=== PATIENT | female | born 1950 | race Caucasian/White ===

== ENCOUNTER → 2017-07-15 09:34 | Outpatient (CLI) | payer MEDICARE, SELFPAY ==
[2017-07-15 11:19] LABS: ALB/GLOB Ratio 1.2 RATIO (0.9-2.4); AST(SGOT) 17 U/L (15-37); Alanine Aminotransfer ALT/SGPT 25 U/L (13-56); Albumin, Serum 3.9 g/dL (3.2-5.0); Alkaline Phosphatase 98 U/L (45-117); Anion Gap 4 (5-15); BUN 13 mg/dL (7-18); Calcium,Total 8.3 mg/dL (8.5-10.1); Chloride 105 mmol/L (98-107); Cholesterol 176 mg/dL (200); Creatinine, Serum 0.87 mg/dL (0.55-1.02); EST Glomerular Filtration Rate 69 mL/min (>60); Est Glom Filt Rate - Afr Amer 84 mL/min (>60); Globulin 3.2 g/dL (2.2-4.2); Glucose 97 mg/dL (74-106); High Density Lipoprotein 61 mg/dL; Potassium 3.8 mmol/L (3.5-5.1); Protein, Total 7.1 g/dL (6.4-8.2); Sodium Level 141 mmol/L (136-145); Triglycerides 242 mg/dL; Very Low Density Lipoprotein 48 mg/dL (5-40)
== END ==
PROVIDERS: Family Provider Family Medicine; PCP Family Medicine; Visit Provider Family Medicine
DX: E78.1 Pure hyperglyceridemia (principal); Z79.899 Other long term (current) drug therapy
CPT/HCPCS: 36415; 80053; 80061

== ENCOUNTER → 2017-10-12 08:48 | Outpatient (CLI) | payer MEDICARE, SELFPAY ==
--- NOTE | 2017-10-12 09:05 | RAD_ITS ---
STUDY: X-RAY CHEST REASON FOR EXAM: Female, 66 years old. Acute bronchitis. TECHNIQUE: PA and lateral views of the chest. COMPARISON: August 20, 2015. FINDINGS: The lungs are clear and expanded. There is no demonstrated pleural abnormality. Normal size heart. Normal mediastinum and jt. Normal visualized pulmonary arteries. Normal visualized aortic arch and descending thoracic aorta. Normal visualized thoracic spine. Normal visualized ribs, clavicles, and shoulders. There is no demonstrated abnormality of the visualized soft tissue structures of the upper abdomen. RAD/Chest PA and Lateral IMPRESSION: No acute cardiopulmonary disease or interval change. Electronically Signed: Anselmo Jones DO at 17:23 EDT Tel [phone], Service support ,
[2017-10-12 09:51] LABS: ALB/GLOB Ratio 1.2 RATIO (0.9-2.4); AST(SGOT) 19 U/L (15-37); Alanine Aminotransfer ALT/SGPT 33 U/L (13-56); Albumin, Serum 4.1 g/dL (3.2-5.0); Alkaline Phosphatase 95 U/L (45-117); Anion Gap 9 (5-15); BUN 13 mg/dL (7-18); BUN/Creat Ratio 12.1 RATIO (10-20); Calcium,Total 9.1 mg/dL (8.5-10.1); Chloride 106 mmol/L (98-107); Cholesterol 170 mg/dL (200); Creatinine, Serum 1.07 mg/dL (0.55-1.02); EST Glomerular Filtration Rate 54 mL/min (>60); Est Glom Filt Rate - Afr Amer 66 mL/min (>60); Globulin 3.3 g/dL (2.2-4.2); Glucose 177 mg/dL (74-106); High Density Lipoprotein 72 mg/dL; Potassium 3.9 mmol/L (3.5-5.1); Protein, Total 7.4 g/dL (6.4-8.2); Sodium Level 141 mmol/L (136-145); Triglycerides 117 mg/dL; Very Low Density Lipoprotein 23 mg/dL (5-40)
== END ==
PROVIDERS: Family Provider Family Medicine; PCP Family Medicine; Visit Provider Family Medicine
DX: J45.41 Moderate persistent asthma with (acute) exacerbation (principal); J20.9 Acute bronchitis, unspecified; F33.0 Major depressive disorder, recurrent, mild; E78.2 Mixed hyperlipidemia; J01.40 Acute pansinusitis, unspecified; I13.0 Hypertensive heart and chronic kidney disease with heart failure and stage 1 through stage 4 chronic kidney disease, or unspecified chronic kidney disease; I50.30 Unspecified diastolic (congestive) heart failure; N18.2 Chronic kidney disease, stage 2 (mild); M81.8 Other osteoporosis without current pathological fracture
CPT/HCPCS: 36415; 71046; 80053; 80061; 82306

== ENCOUNTER → 2017-10-14 10:11 | Outpatient (CLI) | payer MEDICARE, SELFPAY ==
--- NOTE | 2017-10-14 10:13 | BI_ITS ---
MAMMOGRAPHY - BILATERAL SCREENING REASON FOR EXAM: Female, 66 years old. Routine annual screening examination. PERTINENT HISTORY: Non-contributory. TECHNIQUE: Digital bilateral breast june (3D mammographic acquisition) in the CC and MLO projections. 2-D mediolateral oblique (MLO) and craniocaudad (CC) views of both breasts were obtained. CAD: Full Field Digital Mammography with Computer Added Detection was performed. COMPARISON: Comparison is made with prior chest examination dated September 07, 2016. FINDINGS: Breast Composition: The breasts are heterogeneously dense, which may obscure small masses. There are no dominant masses or suspicious calcifications. No other significant abnormalities are identified. There has been no significant change since the prior study. BI/SCREENING MAMM (CAD), BILAT IMPRESSION: Stable bilateral screening mammogram. Yearly follow-up mammogram recommended. (A) ASSESSMENT CATEGORY: BIRADS Category 1: Negative. A letter regarding these results will be sent to the patient by the facility within 30 days. Approximately 10% of breast cancers are not detected by mammography. A normal mammogram should not delay biopsy of a clinically suspicious abnormality. [id number] Electronically Signed: Thomas Arvizu MD at 11:33 EDT Tel [phone], Service support ,
== END ==
PROVIDERS: Family Provider Family Medicine; PCP Family Medicine; Visit Provider Nurse Practitioner Adult Health
DX: Z12.31 Encounter for screening mammogram for malignant neoplasm of breast (principal)
CPT/HCPCS: 77063; 77067

== ENCOUNTER → 2017-12-13 11:32 | Outpatient (CLI) | payer MEDICARE, SELFPAY ==
[2017-12-13 12:00] LABS: Absolute Lymphocyte Count 2.07 X10^3/ul (0.83-4.51); Absolute Neutrophil Count 2.9 X10^3/uL (2.0-7.7); Basophil# 0.06 X10^3/uL; Hematocrit 39.4 % (37-47); Hemoglobin 13.1 g/dl (12.0-15.0); Lymphocyte # 2.07 X10^3/ul (4.0); Lymphocyte % 33.2 % (19-41); Mean Corp Hgb Conc 33.2 g/gl (32-36); Mean Corpuscular Volume 93.1 fL (81-99); Mean Platelet Vol. 9.7 fl (6.2-12.0); Monocyte# 0.67 X10^3/uL; Monocyte% 10.7 % (0-10); Neutrophil # 2.91 X10^3/uL (2.7-7.7); Neutrophil % 46.6 % (47-70); Platelet Count 231 K/mm3 (150-450); RBC Distribution Width CV 14.1 % (11.6-14.6); RBC Distribution Width SD 47.8 fl (35.1-43.9); Red Blood Count 4.23 M/mm3 (4.2-5.4); White Blood Count 6.2 K/mm3 (4.4-11.0)
[2017-12-13 12:01] LABS: POSITIVE COUNT NO; POSITIVE DIFFERENTIAL NO; POSITIVE MORPHOLOGY NO
[2017-12-13 12:37] LABS: BNP,B-Type NATRIURETIC PEPTIDE 20.7 pg/mL (0-100)
[2017-12-16 20:08] LABS: Aspirgillus flavus Negative (Neg:<1:1); Aspirgillus fumigatus Negative (Neg:<1:1); Aspirgillus niger Negative (Neg:<1:1)
[2017-12-17 08:56] LABS: Immunoglobulin E 74 IU/mL (0-100)
== END ==
PROVIDERS: Family Provider Family Medicine; PCP Family Medicine; Visit Provider Internal Medicine Critical Care Medicine
DX: J45.51 Severe persistent asthma with (acute) exacerbation (principal); I50.32 Chronic diastolic (congestive) heart failure
CPT/HCPCS: 36415; 82785; 83880; 85025; 86606

== ENCOUNTER → 2017-12-23 15:04 | Outpatient (CLI) | payer MEDICARE, SELFPAY ==
--- NOTE | 2017-12-23 15:08 | CT_ITS ---
STUDY: CT CHEST WITHOUT CONTRAST REASON FOR EXAM: Female, 66 years old. Wheezing cough asthma RADIATION DOSAGE (If Supplied By Facility): CTDIvol = ( 12.81 ) mGy, DLP = ( 475.52 ) mGycm TECHNIQUE: Transaxial imaging was performed without the administration of intravenous contrast material. Multiplanar coronal and sagittal images were reformatted. Individualized dose optimization techniques were used for this CT. COMPARISON: October 2017 chest x-ray FINDINGS: There is a trace amount of right middle lobe atelectasis. There is no visualized focal consolidation or pleural effusion. There is no demonstrated pleural abnormality. Normal heart and pericardium. Normal mediastinum. Normal hilar regions. Normal unenhanced pulmonary arteries. There is minimal calcification of the aorta. Normal osseous structures. Ms. Heider hernia measuring 2.[address]/Chest without Contrast IMPRESSION: No visualized acute focal infiltrate. Minimal right middle lobe atelectasis. Small hiatal hernia. Electronically Signed: Gertrude Mattson MD at 15:30 EDT Tel , Service support ,
== END ==
PROVIDERS: Family Provider Family Medicine; PCP Family Medicine; Visit Provider Internal Medicine Critical Care Medicine
DX: J45.51 Severe persistent asthma with (acute) exacerbation (principal)
CPT/HCPCS: 71250

== ENCOUNTER 2018-03-22 17:01 | Observation (INO) | payer MEDICARE, SELFPAY ==
[2018-03-22] VITALS (10 sets, daily range): BP systolic 143–154; BP diastolic 59–91; PULSE 90–105; RESP 16–24; TEMP 36.8–37.1; O2SAT 95–97; BMI 26.9
--- NOTE | 2018-03-22 17:37 | RAD_ITS ---
STUDY: X-RAY CHEST REASON FOR EXAM: Female, 67 years old. Congestion and cough. TECHNIQUE: Frontal and lateral views of the chest. COMPARISON: 10/12/2017. FINDINGS: There is hyperinflation of the lungs consistent with chronic obstructive lung disease (COPD). No infiltrates or effusions. There is no demonstrated pleural abnormality. Normal size heart. Normal mediastinum and jt. Normal visualized pulmonary arteries. Normal visualized aortic arch and descending thoracic aorta. There are diffuse degenerative changes of the visualized thoracic spine. Stable mild compression fracture of the lower thoracic spine. Normal visualized ribs, clavicles, and shoulders. There is no demonstrated abnormality of the visualized soft tissue structures of the upper abdomen. RAD/Chest PA and Lateral IMPRESSION: There are findings consistent with COPD. There is no evidence of acute chest disease. Electronically Signed: Kong Kapadia MD at 18:47 EST , Service support ,
--- NOTE | 2018-03-22 17:37 | EKG12_ITS ---
Test Reason : Blood Pressure : / mmHG Vent. Rate : 090 BPM Atrial Rate : 090 BPM P-R Int : 138 ms QRS Dur : 074 ms QT Int : 364 ms P-R-T Axes : 073 070 087 degrees QTc Int : 445 ms Normal sinus rhythm Nonspecific ST abnormality Abnormal ECG Confirmed by MARYCARMEN STRICKLAND, MIKAEL ([id number]), proposal editor SUNDEEP DEVRIES ([id number]) on 03/25/2018 1:43:31 PM Referred By: HEATHER Confirmed By:MIKAEL CONROY MD
[2018-03-22] MEDS: Ipratropium/Albuterol Sulfate 3 ML AMPUL.NEB INHALATION (17:58)
[2018-03-22] MEDS: Albuterol 2.5 MG/3 ML VIAL.NEB. INHALATION ×5 (17:58→19:39)
[2018-03-22 18:38] LABS: Absolute Lymphocyte Count 2.62 X10^3/ul (0.83-4.51); Absolute Neutrophil Count 5.2 X10^3/uL (2.0-7.7); Basophil# 0.12 X10^3/uL; Basophil% 1.2 % (0-1); Eosinophil# 1.24 X10^3/uL; Eosinophils% 12.5 % (0-5); Lymphocyte # 2.62 X10^3/ul (4.0); Lymphocyte % 26.5 % (19-41); Mean Corp Hgb Conc 33.3 g/gl (32-36); Mean Corpuscular Volume 92.9 fL (81-99); Mean Platelet Vol. 9.9 fl (6.2-12.0); Monocyte# 0.73 X10^3/uL; Monocyte% 7.4 % (0-10); Neutrophil # 5.15 X10^3/uL (2.7-7.7); Platelet Count 294 K/mm3 (150-450); RBC Distribution Width CV 13.1 % (11.6-14.6); RBC Distribution Width SD 44.6 fl (35.1-43.9); Red Blood Count 4.52 M/mm3 (4.2-5.4); White Blood Count 9.9 K/mm3 (4.4-11.0)
[2018-03-22] MEDS: MethylPREDNISolone 125 MG/2 ML Vial IV (18:40)
[2018-03-22] MEDS: 0.9% Normal Saline 1,000 ML 150 ML IV (18:40)
[2018-03-22 18:48] LABS: POSITIVE COUNT NO; POSITIVE DIFFERENTIAL NO; POSITIVE MORPHOLOGY NO
[2018-03-22 18:49] LABS: Anion Gap 10 (5-15); BUN 14 mg/dL (7-18); BUN/Creat Ratio 14.4 RATIO (10-20); Calcium,Total 9.1 mg/dL (8.5-10.1); Chloride 104 mmol/L (98-107); Creatinine, Serum 0.98 mg/dL (0.55-1.02); EST Glomerular Filtration Rate 61 mL/min (>60); Est Glom Filt Rate - Afr Amer 73 mL/min (>60); Estimated Creatinine Clearance 46.08 ml/min; Glucose 110 mg/dL (74-106); Potassium 3.9 mmol/L (3.5-5.1); Sodium Level 142 mmol/L (136-145)
--- NOTE | 2018-03-22 19:06 | ED.VISSUMM ---
- ER Visit Summary Date of Service: 03/22/18 Chief Complaint: Shortness of breath History of Present Illness: The patient is a 67 F presents to the emergency department shortness of breath. Patient has a history of asthma. She is not on oxygen at home. She states that over the past 5 days, she has had worsening shortness of breath. She has been using her nebulizers every 4 hours with no improvement. She had scant cough but no productive sputum. She denies any fevers or chills. She denies any chest pain. Patient does not smoke. She states that she did start taking prednisone 2 days ago with little improvement. She has no history of pulmonary embolus. Physical Examination: Vital signs reviewed General: Well-nourished, well-developed Head: Normocephalic, atraumatic Eyes: Pupils equal and reactive, extraocular muscles intact Neck, supple, no lymphadenopathy Heart: Regular rate and rhythm Respiratory: No distress, diminished with wheezing throughout Abdomen: Soft, nontender, nondistended, no peritoneal signs Back: Nontender Extremities: Nontender, no edema, no cords Skin: Normal color no rash Neuro: Alert and oriented, no focal or lateralizing deficits Test Results: [] Emergency Department Course and Treatment: The patient presents with shortness of breath. EKG does not show any acute ischemia. The patient was given nebulized breathing treatments and steroids. Her x-ray shows no evidence of volume overload. There is no cardiomegaly. Screening labs are unremarkable. On reevaluation, the patient still has persistent bronchospasm. She was ambulated and was not hypoxic, but still had tachypnea at a rate of 30. At this time, I do feel the patient is to require admission for continued nebulized breathing treatments and steroids. Patient was discussed with the hospitalist. She will be admitted at this time. Treatment Plan: [] Disposition: Admission Impression: 1. Acute asthma exacerbation This note was generated with [facility] EHR dictation software. It may contain incorrect words, spelling, and punctuation that were not noted in review of the chart prior to signing ED Disposition - Plan for ED Patient: Disposition: Acute Care Hospital [facility] Chief Complaint: Cold Sx
--- NOTE | 2018-03-22 20:29 | HP.PCM_ITS ---
History of Present Illness Date of Admission: 03/22/18 Chief Complaint: cough, worsening shortness of breath The patient is a 67 year old F with past medical history of hypertension and asthma. She was admitted through the ED on 03/22/2018 with complaint of worsening shortness of breath and a cough for 5 days duration. She denies being around any person with upper respiratory tract symptoms. Symptoms started with congestion and rhinorrhea and subsequently she developed a cough which is mildly productive of scanty yellowish sputum. She admitted to some occasional chills and states shortness of breath and wheezing have been worsening associated with coming to the ED. She denied any assisted anorexia, palpitations, dizziness or lightheadedness, abdominal pain, diarrhea vomiting. Review of systems otherwise negative. In the ED, labs are unremarkable and vitals were significant for tachycardia and tachypnea.. She was given a breathing treatment and felt better but with ambulation, shortness of breath worsened and her breathing went up to 28 breaths/min. She is never been admitted to manage for asthma exacerbation. [] Past Medical History Past Medical History (Chronic Problems): Chronic Problems (Last Reviewed 01/27/18 @ 06:42 by Irma Davidson) Hypersomnia (Chronic) Persistent asthma (Chronic) Chronic diastolic heart failure (Chronic) Palpitations (Chronic) HTN (hypertension) (Chronic) Medical History: Medical History (Last Reviewed 01/27/18 @ 06:42 by Irma Davidson) Persistent asthma (Chronic) J45.909 Chronic diastolic heart failure (Chronic) I50.32 Palpitations (Chronic) R00.2 History of hysterectomy (Resolved) Z90.710 HTN (hypertension) (Chronic) I10 Cough R05 Dyspnea R06.00 Stage 2 chronic kidney disease N18.2 Wheezing R06.2 Allergies codeine Allergy (Severe, Verified 03/22/18 17:04) DIFFICULTY BREATHING/THROAT SWELLING nausea/swelling of mouth hydromorphone HCl [From Dilaudid] Allergy (Verified 03/22/18 17:04) EXTREME LETHARGY Home Medications: Ambulatory Orders Medication Instructions Recorded Amlodipine/Benazepril [Lotrel 5-20 1 cap PO QHS 06/29/15 MG Capsule] Omeprazole [Prilosec] 20 mg PO QHS 05/24/15 cyanocobalamin (vit B-12) 500 mcg 500 mcg PO DAILY 08/03/17 tablet atorvastatin 20 mg tablet 20 mg PO DAILY 10/19/17 fluticasone 500 mcg-salmeterol 50 1 inh INHALATION BID 10/19/17 mcg/dose blistr powdr for inhalation montelukast 10 mg tablet 10 mg PO QPM 01/27/18 Albuterol IH (ProAir) [Proair Hfa 2 puff INHALATION Q6H PRN PRN 03/22/18 (SP)Vent Pts] Cholecalciferol (Vitamin D3) 2,000 unit PO DAILY 03/22/18 [D3-2000] Ipratropium/Albuterol Sulfate 1 vial INHALATION 4X/DAY 03/22/18 [Iprat-Albut 0.5-3(2.5) mg/3 ml] Venlafaxine XR [Effexor Xr] 75 mg PO DAILY 03/22/18 Vitamin E 400 units PO DAILY 03/22/18 traZODone [Desyrel] 100 mg PO QHS 03/22/18 Surgical History: Surgical History (Last Reviewed 01/27/18 @ 06:42 by Irma Davidson) Hx of hernia repair (Resolved) Z98.890, Z87.19 History of tonsillectomy (Resolved) Z90.89 Surgical History: noncontributory Lives: Spouse/ Significant Other Smoking Status: Never smoker Alcohol: None - *Family History Maternal Family History: Family History (Last Reviewed 01/27/18 @ 06:42 by Irma Davidson) Brother CAD (coronary artery disease) Father CHF (congestive heart failure) Brother Myocardial infarction History Items: No pertinent history Paternal Family History: Family History (Last Reviewed 01/27/18 @ 06:42 by Irma Davidson) Brother CAD (coronary artery disease) Father CHF (congestive heart failure) Brother Myocardial infarction History Items: Heart Disease Review of Systems Constitutional: Reports: Chills. Denies: Anorexia, Fever, Malaise, Weakness, Weight Change, Fatigue Eyes: Denies: Blurred vision HEENT: Denies: Head Aches, Sinus Congestion, Sinus Drainage Cardiovascular: Denies: Chest Pain, Palpitations Respiratory: Reports: Cough, Shortness of Breath, Shortness of breath at rest, Shortness of breath upon exertion, Sputum production, Wheezing. Denies: Pleuritic Pain Gastrointestinal: Denies: Abdominal Pain, Nausea, Vomiting Genitourinary: Denies: Dysuria Musculoskeletal: Denies: Joint Pain, Joint Tenderness Skin: Denies: Rash, Wounds Neurological: Denies: Numbness, Tingling, Focal weakness Psychiatric: Denies: Anxiety, Depression, Homicidal Ideations, Suicidal Ideations Hematologic/ Lymphatic: Denies: Easy Bruising, Easy Bleeding VTE Information - Inpt Only VTE Present on Admission: No VTE Pharm Prophylaxis ordered?: Yes - Physical Exam General: Alert, Oriented x3, Cooperative, No apparent distress HEENT: Atraumatic, PERRLA, EOMI, Normocephalic Oral: Moist Mucosa Neck: Supple, No JVD, Negative Carotid Bruits Lungs: Short of Breath, - - Has coarse rhonchi and wheezing in all lung parada bilaterally. No crackles auscultated. Cardiovascular: Regular Rhythm, Normal S1, Normal S2, No murmurs, Tachycardic Abdomen: Bowel Sounds Present, Soft, Non Tender, Non-Distended, No Hepato- splenomegaly Extremities: No clubbing, No cyanosis, No edema, Capillary Refill Less than 3 Seconds Skin: No rashes, No breakdown Musculoskeletal: No Tenderness to Palpation of Joints or Extremities Lymphatic: No Cervical, Supraclavicular, or Inguinal Adenopathy Neurological: Cranial nerves II-XII grossly intact Psych/Mental Status: Normal Affect, Appropriate, Alert and oriented to time, place, person, mood and affect Vital Signs Temp Pulse Resp BP Pulse Ox 98.4 F 105 H 20 H 154/82 H 95 03/22/18 17:32 03/22/18 19:40 03/22/18 19:40 03/22/18 17:32 03/22/18 17:32 Oxygen Delivery Method Room Air Weight: 151 lb 10.848 oz Body Mass Index (BMI) 26.9 Laboratory Tests Past 24 Hrs 03/22/18 03/22/18 18:19 18:19 WBC 9.9 RBC 4.52 Hgb 14.0 Hct 42.0 MCV 92.9 MCH 31.0 MCHC 33.3 RDW 13.1 RDW Differential 44.6 H Plt Count 294 MPV 9.9 Immature Gran % (Auto) 0.400 Neut % (Auto) 52.0 Lymph % (Auto) 26.5 [place] % (Auto) 7.4 Eos % (Auto) 12.5 H Baso % (Auto) 1.2 H Absolute Neuts (auto) 5.2 Absolute Lymphs (auto) 2.62 Total Counted Not Reportable Sodium 142 Potassium 3.9 Chloride 104 Carbon Dioxide 28.0 Anion Gap 10 BUN 14 Creatinine 0.98 Estim Creat Clear Calc 46.08 Est GFR (MDRD) Af Amer 73 Est GFR (MDRD) Non-Af 61 BUN/Creatinine Ratio 14.4 Glucose 110 H Calcium 9.1 Troponin I < 0.015 Diagnostic Data Chest X-Ray 03/22/18 17:37 IMPRESSION: There are findings consistent with COPD. There is no evidence of acute chest disease. Electronically Signed: Kong Kapadia MD at 18:47 EST , Service support , Assessment/Plan All Active Problems (Last Reviewed 01/27/18 @ 06:42 by Irma Davidson) Eosinophilia (Acute) Hx of hernia repair (Resolved) History of hysterectomy (Resolved) History of tonsillectomy (Resolved) Hernia of abdominal cavity, with obstruction (Acute) Lactic acidosis (Resolved) Respiratory failure with hypoxia and hypercapnia (Resolved) 70-year-old female admitted with a 5-day history of rhinorrhea, nasal congestion, cough and shortness of breath. 1. Asthma exacerbation due to URTI * has coarse rhonchi and wheezing in all lung parada * CXR showed no acute infiltrate * admit to Med surg with telemetry * breathing treatments with duonebs * check respiratory panel * IV solumedrol 40mg q8 * oxygen prn to maintain sats >92% * Continue montelukast and fluticasone salmeterol. 2. Hypertension: On amlodipine and benazepril. Will continue. 3. Hyperlipidemia: On atorvastatin. 4. Depression: On Effexor and trazodone DVT prophylaxis: Lovenox Code status: full code * Patient counseled extensively about different types of CODE STATUS including full code, DNR CCA and DNR CCA. Patient elects to be full code. Total [id number] time 17 minutes. Code Visit OBSV E&M: 56379 Initial observation care L3 Procedures: 84420 Advncd Care Plan 30 Min
[2018-03-22] MEDS: Acetaminophen 500 MG Tablet 1000 MG PO (20:31)
[2018-03-22] MEDS: Atorvastatin Calcium 20 MG Tablet PO (22:49)
[2018-03-22] MEDS: traZODone 100 MG Tablet PO (22:49)
[2018-03-22] MEDS: Lisinopril 20 MG Tablet PO (22:51)
[2018-03-22] MEDS: amLODIPine 5 MG Tablet PO (22:51)
[2018-03-23] VITALS (14 sets, daily range): BP systolic 121–146; BP diastolic 51–66; PULSE 77–104; RESP 16–22; TEMP 36.5–37.1; O2SAT 91–96
[2018-03-23] MEDS: 0.9% NaCl Peripheral Flush Adult/Peds IV ×3 (05:47→18:08)
[2018-03-23] MEDS: Ipratropium/Albuterol Sulfate 3 ML AMPUL.NEB INHALATION ×4 (05:55→20:20)
[2018-03-23 08:16] LABS: Absolute Lymphocyte Count 0.68 X10^3/ul (0.83-4.51); Absolute Neutrophil Count 8.4 X10^3/uL (2.0-7.7); Basophil# 0.03 X10^3/uL; Basophil% 0.3 % (0-1); Eosinophil# 0.01 X10^3/uL; Eosinophils% 0.1 % (0-5); Hematocrit 37.7 % (37-47); Hemoglobin 12.3 g/dl (12.0-15.0); Lymphocyte # 0.68 X10^3/ul (4.0); Lymphocyte % 7.2 % (19-41); Mean Corp Hgb Conc 32.6 g/gl (32-36); Mean Corpuscular Hgb 30.6 pg (27.0-32.0); Mean Corpuscular Volume 93.8 fL (81-99); Mean Platelet Vol. 10.3 fl (6.2-12.0); Monocyte# 0.26 X10^3/uL; Monocyte% 2.8 % (0-10); Neutrophil # 8.36 X10^3/uL (2.7-7.7); Neutrophil % 88.6 % (47-70); POSITIVE COUNT NO; POSITIVE DIFFERENTIAL NO; POSITIVE MORPHOLOGY NO; Platelet Count 272 K/mm3 (150-450); RBC Distribution Width SD 43.2 fl (35.1-43.9); Red Blood Count 4.02 M/mm3 (4.2-5.4); White Blood Count 9.4 K/mm3 (4.4-11.0)
[2018-03-23 08:36] LABS: Anion Gap 9 (5-15); BUN 11 mg/dL (7-18); BUN/Creat Ratio 12.4 RATIO (10-20); Calcium,Total 8.5 mg/dL (8.5-10.1); Chloride 107 mmol/L (98-107); Creatinine, Serum 0.89 mg/dL (0.55-1.02); EST Glomerular Filtration Rate 67 mL/min (>60); Est Glom Filt Rate - Afr Amer 82 mL/min (>60); Estimated Creatinine Clearance 50.74 ml/min; Glucose 168 mg/dL (74-106); Potassium 4.1 mmol/L (3.5-5.1); Sodium Level 139 mmol/L (136-145)
--- NOTE | 2018-03-23 08:57 | PCM.PN.HOSP ---
Subjective: Patient is a 70-year-old lady with history of great intermittent asthma who presented with a 5-day history of cough nasal congestion as well as shortness of breath. Patient had apparently used her home treatment regimen without much improvement. Presented to the emergency department and assessment of acute asthma exacerbation made admitted to a monitored bed for further management Objective: GENERAL: cooperative HEENT: Atraumatic; moist oral mucosa EYES; Anicteric, Normal Conjunctiva NECK; supple, normal thyroid, no distended JVD. RESPIRATORY: Diminished to auscultation bilaterally, bilateral wheezes CARDIOVASCULAR: Regular S1 S2, no audible murmurs GI: soft, non-tender, normoactive bowel sounds, : No Renal angle tenderness; EXTREMITIES: No edema, no clubbing, no cyanosis. MUSCULOSKELETAL: No Joint Tenderness; no muscle waisting NEURO: Awake; no lateralizing signs. SKIN: No Rash PSYCH; Normal affect Vitals/I&O's: Vital Signs Temp Pulse Resp BP Pulse Ox 98.2 F 88 18 121/59 H 93 03/23/18 07:46 03/23/18 07:46 03/23/18 07:46 03/23/18 07:46 03/23/18 07:46 Oxygen Flow Rate (L/min) 3 Oxygen Delivery Method Room Air Weight: 68.8 kg Body Mass Index (BMI) 26.9 Intake and Output for Last 24 Hours 03/21/18 03/22/18 03/23/18 23:59 23:59 23:59 Intake Total 2145 / 2145 Balance 2145 / 2145 Microbiology Past 72 Hours 03/22/18 23:30 Mucosa - Nasopharyngeal Respiratory Panel (PCR) - Final Laboratory Results 03/22/18 18:19: WBC 9.9, RBC 4.52, Hgb 14.0, Hct 42.0, MCV 92.9, MCH 31.0, MCHC 33.3, RDW 13.1, RDW Differential 44.6 H, Plt Count 294, MPV 9.9, Immature Gran % (Auto) 0.400, Neut % (Auto) 52.0, Lymph % (Auto) 26.5, [place] % (Auto) 7.4, Eos % (Auto) 12.5 H, Baso % (Auto) 1.2 H, Absolute Neuts (auto) 5.2, Absolute Lymphs (auto) 2.62, Total Counted Not Reportable 03/22/18 18:19: Sodium 142, Potassium 3.9, Chloride 104, Carbon Dioxide 28.0, Anion Gap 10, BUN 14, Creatinine 0.98, Estim Creat Clear Calc 46.08, Est GFR (MDRD) Af Amer 73, Est GFR (MDRD) Non-Af 61, BUN/Creatinine Ratio 14.4, Glucose 110 H, Calcium 9.1, Troponin I < 0.015 03/23/18 07:45: WBC 9.4, RBC 4.02 L, Hgb 12.3, Hct 37.7, MCV 93.8, MCH 30.6, MCHC 32.6, RDW 13.0, RDW Differential 43.2, Plt Count 272, MPV 10.3, Immature Gran % (Auto) 1.000 H, Neut % (Auto) 88.6 H, Lymph % (Auto) 7.2 L, [place] % (Auto) 2.8, Eos % (Auto) 0.1, Baso % (Auto) 0.3, Absolute Neuts (auto) 8.4 H, Absolute Lymphs (auto) 0.68 L, Total Counted Not Reportable 03/23/18 07:45: Sodium 139, Potassium 4.1, Chloride 107, Carbon Dioxide 23.0, Anion Gap 9, BUN 11, Creatinine 0.89, Estim Creat Clear Calc 50.74, Est GFR (MDRD) Af Amer 82, Est GFR (MDRD) Non-Af 67, BUN/Creatinine Ratio 12.4, Glucose 168 H, Calcium 8.5 Current Medications Acetaminophen (Tylenol) 650 mg PO Q6H PRN PRN PRN Reason: HEADACHE Albuterol/Ipratropium (Duoneb) 3 ml INHALATION 4X/DAY [facility] Last Admin: 03/23/18 06:46 Dose: Not Given Amlodipine Besylate (Norvasc) 5 mg PO DAILY@0 [facility] Last Admin: 03/22/18 22:51 Dose: 5 mg Atorvastatin Calcium (Lipitor) 20 mg PO DAILY@2200 [facility] Last Admin: 03/22/18 22:49 Dose: 20 mg Cholecalciferol (Vitamin D) 2,000 unit PO DAILY [facility] Cyanocobalamin (Vitamin B12) 500 mcg PO DAILY [facility] Enoxaparin Sodium (Lovenox) 40 mg SC DAILY@1000 [facility] Lisinopril (Zestril) 20 mg PO DAILY@2200 [facility] Last Admin: 03/22/18 22:51 Dose: 20 mg Magnesium Hydroxide (Milk Of Magnesia) 30 ml PO DAILY PRN PRN PRN Reason: Constipation Methylprednisolone (Solu-Medrol) 40 mg IV Q8 [facility] Last Admin: 03/23/18 05:47 Dose: 40 mg Montelukast Sodium (Singulair) 10 mg PO 2200 [facility] Last Admin: 03/22/18 23:03 Dose: Not Given Pantoprazole Sodium (Protonix) 20 mg PO QHS [facility] Last Admin: 03/22/18 23:03 Dose: Not Given Sodium Chloride () 5 - 15 ml IV UD PRN PRN Reason: SALINE FLUSH Last Admin: 03/23/18 05:47 Dose: 10 ml Trazodone HCl (Desyrel) 100 mg PO QHS [facility] Last Admin: 03/22/18 22:49 Dose: 100 mg Venlafaxine HCl (Effexor Xr) 75 mg PO DAILY [facility] Vitamin E (Vitamin E) [facility] - Tobacco Use Smoking Status: Never smoker Assessment/Plan All Active Problems (Last Reviewed 01/27/18 @ 06:42 by Irma Davidson) Eosinophilia (Acute) Hx of hernia repair (Resolved) History of hysterectomy (Resolved) History of tonsillectomy (Resolved) Hernia of abdominal cavity, with obstruction (Acute) Lactic acidosis (Resolved) Respiratory failure with hypoxia and hypercapnia (Resolved) Patient is a 70-year-old lady with history of great intermittent asthma who presented with a 5-day history of cough nasal congestion as well as shortness of breath. Patient had apparently used her home treatment regimen without much improvement. Presented to the emergency department and assessment of acute asthma exacerbation made admitted to a monitored bed for further management 1. Acute asthma exacerbation possibly preceded by an upper respiratory tract infection possibly viral. Patient respiratory panel however came back negative admitted to regular nursing floor managed with systemic steroid as well as aerosol treatment 2. Hypertension-blood pressure controlled, home medications continued with dose adjustment as needed 3. Dyslipidemia-patient is on statin therapy, continued at home dose 4. Depression with anxiety patient is on Effexor and trazodone 5. DVT prophylaxis [place] Lovenox Code Visit OBSV E&M: 84809 Subsequent observation care L3
[2018-03-23] MEDS: Enoxaparin 40 MG/0.4 ML Syringe SC (09:00)
--- NOTE | 2018-03-23 09:01 | PN_ITS ---
Subjective: Patient is a 70-year-old lady with history of great intermittent asthma who presented with a 5-day history of cough nasal congestion as well as shortness of breath. Patient had apparently used her home treatment regimen without much improvement. Presented to the emergency department and assessment of acute asthma exacerbation made admitted to a monitored bed for further management Objective: GENERAL: cooperative HEENT: Atraumatic; moist oral mucosa EYES; Anicteric, Normal Conjunctiva NECK; supple, normal thyroid, no distended JVD. RESPIRATORY: Diminished to auscultation bilaterally, bilateral wheezes CARDIOVASCULAR: Regular S1 S2, no audible murmurs GI: soft, non-tender, normoactive bowel sounds, : No Renal angle tenderness; EXTREMITIES: No edema, no clubbing, no cyanosis. MUSCULOSKELETAL: No Joint Tenderness; no muscle waisting NEURO: Awake; no lateralizing signs. SKIN: No Rash PSYCH; Normal affect Vitals/I&O's: Vital Signs Temp Pulse Resp BP Pulse Ox 98.2 F 88 18 121/59 H 93 03/23/18 07:46 03/23/18 07:46 03/23/18 07:46 03/23/18 07:46 03/23/18 07:46 Oxygen Flow Rate (L/min) 3 Oxygen Delivery Method Room Air Weight: 68.8 kg Body Mass Index (BMI) 26.9 Intake and Output for Last 24 Hours 03/21/18 03/22/18 03/23/18 23:59 23:59 23:59 Intake Total 2145 / 2145 Balance 2145 / 2145 Microbiology Past 72 Hours 03/22/18 23:30 Mucosa - Nasopharyngeal Respiratory Panel (PCR) - Final Laboratory Results 03/22/18 18:19: WBC 9.9, RBC 4.52, Hgb 14.0, Hct 42.0, MCV 92.9, MCH 31.0, MCHC 33.3, RDW 13.1, RDW Differential 44.6 H, Plt Count 294, MPV 9.9, Immature Gran % (Auto) 0.400, Neut % (Auto) 52.0, Lymph % (Auto) 26.5, Bond % (Auto) 7.4, Eos % (Auto) 12.5 H, Baso % (Auto) 1.2 H, Absolute Neuts (auto) 5.2, Absolute Lymphs (auto) 2.62, Total Counted Not Reportable 03/22/18 18:19: Sodium 142, Potassium 3.9, Chloride 104, Carbon Dioxide 28.0, Anion Gap 10, BUN 14, Creatinine 0.98, Estim Creat Clear Calc 46.08, Est GFR (MDRD) Af Amer 73, Est GFR (MDRD) Non-Af 61, BUN/Creatinine Ratio 14.4, Glucose 110 H, Calcium 9.1, Troponin I < 0.015 03/23/18 07:45: WBC 9.4, RBC 4.02 L, Hgb 12.3, Hct 37.7, MCV 93.8, MCH 30.6, MCHC 32.6, RDW 13.0, RDW Differential 43.2, Plt Count 272, MPV 10.3, Immature Gran % (Auto) 1.000 H, Neut % (Auto) 88.6 H, Lymph % (Auto) 7.2 L, Bond % (Auto) 2.8, Eos % (Auto) 0.1, Baso % (Auto) 0.3, Absolute Neuts (auto) 8.4 H, Absolute Lymphs (auto) 0.68 L, Total Counted Not Reportable 03/23/18 07:45: Sodium 139, Potassium 4.1, Chloride 107, Carbon Dioxide 23.0, Anion Gap 9, BUN 11, Creatinine 0.89, Estim Creat Clear Calc 50.74, Est GFR (MDRD) Af Amer 82, Est GFR (MDRD) Non-Af 67, BUN/Creatinine Ratio 12.4, Glucose 168 H, Calcium 8.5 Current Medications Acetaminophen (Tylenol) 650 mg PO Q6H PRN PRN PRN Reason: HEADACHE Albuterol/Ipratropium (Duoneb) 3 ml INHALATION 4X/DAY [facility] Last Admin: 03/23/18 06:46 Dose: Not Given Amlodipine Besylate (Norvasc) 5 mg PO DAILY@0 [facility] Last Admin: 03/22/18 22:51 Dose: 5 mg Atorvastatin Calcium (Lipitor) 20 mg PO DAILY@2200 [facility] Last Admin: 03/22/18 22:49 Dose: 20 mg Cholecalciferol (Vitamin D) 2,000 unit PO DAILY [facility] Cyanocobalamin (Vitamin B12) 500 mcg PO DAILY [facility] Enoxaparin Sodium (Lovenox) 40 mg SC DAILY@1000 [facility] Lisinopril (Zestril) 20 mg PO DAILY@2200 [facility] Last Admin: 03/22/18 22:51 Dose: 20 mg Magnesium Hydroxide (Milk Of Magnesia) 30 ml PO DAILY PRN PRN PRN Reason: Constipation Methylprednisolone (Solu-Medrol) 40 mg IV Q8 [facility] Last Admin: 03/23/18 05:47 Dose: 40 mg Montelukast Sodium (Singulair) 10 mg PO 2200 [facility] Last Admin: 03/22/18 23:03 Dose: Not Given Pantoprazole Sodium (Protonix) 20 mg PO QHS [facility] Last Admin: 03/22/18 23:03 Dose: Not Given Sodium Chloride () 5 - 15 ml IV UD PRN PRN Reason: SALINE FLUSH Last Admin: 03/23/18 05:47 Dose: 10 ml Trazodone HCl (Desyrel) 100 mg PO QHS [facility] Last Admin: 03/22/18 22:49 Dose: 100 mg Venlafaxine HCl (Effexor Xr) 75 mg PO DAILY [facility] Vitamin E (Vitamin E) [facility] Medical Necessity - Tobacco Use Smoking Status: Never smoker Assessment/Plan All Active Problems (Last Reviewed 01/27/18 @ 06:42 by Irma Davidson) Eosinophilia (Acute) Hx of hernia repair (Resolved) History of hysterectomy (Resolved) History of tonsillectomy (Resolved) Hernia of abdominal cavity, with obstruction (Acute) Lactic acidosis (Resolved) Respiratory failure with hypoxia and hypercapnia (Resolved) Patient is a 70-year-old lady with history of great intermittent asthma who presented with a 5-day history of cough nasal congestion as well as shortness of breath. Patient had apparently used her home treatment regimen without much improvement. Presented to the emergency department and assessment of acute asthma exacerbation made admitted to a monitored bed for further management 1. Acute asthma exacerbation possibly preceded by an upper respiratory tract infection possibly viral. Patient respiratory panel however came back negative admitted to regular nursing floor managed with systemic steroid as well as aerosol treatment 2. Hypertension-blood pressure controlled, home medications continued with dose adjustment as needed 3. Dyslipidemia-patient is on statin therapy, continued at home dose 4. Depression with anxiety patient is on Effexor and trazodone 5. DVT prophylaxis SC Lovenox Code Visit OBSV E&M: 21636 Subsequent observation care L3
[2018-03-23] MEDS: Venlafaxine XR 75 MG Capsule PO (10:42)
[2018-03-23] MEDS: Montelukast 10 MG Tablet PO ×2 (10:42→10:43)
[2018-03-23] MEDS: BENZOCAINE/MENTHOL 1 LOZENGE MUCOUS MEM ×3 (10:48→18:11)
[2018-03-23] MEDS: Ketorolac 15 MG/ML Vial IV (18:08)
[2018-03-23] MEDS: amLODIPine 5 MG Tablet PO (21:19)
[2018-03-23] MEDS: Atorvastatin Calcium 20 MG Tablet PO (21:19)
[2018-03-23] MEDS: Acetaminophen 325 MG Tablet 650 MG PO (21:19)
[2018-03-23] MEDS: traZODone 100 MG Tablet PO (21:19)
[2018-03-23] MEDS: Pantoprazole Sodium 20 MG Tablet PO (21:19)
[2018-03-23] MEDS: Lisinopril 20 MG Tablet PO (21:19)
[2018-03-24] VITALS (10 sets, daily range): BP systolic 130–155; BP diastolic 57–81; PULSE 79–94; RESP 16–20; TEMP 36.2–36.7; O2SAT 94–97
[2018-03-24] MEDS: Ipratropium/Albuterol Sulfate 3 ML AMPUL.NEB INHALATION ×3 (05:03→14:30)
[2018-03-24] MEDS: Enoxaparin 40 MG/0.4 ML Syringe SC (08:39)
[2018-03-24] MEDS: Venlafaxine XR 75 MG Capsule PO (08:39)
[2018-03-24 08:53] LABS: Mucous, Urine 0 SEEN /hpf (<or=2+); Red Blood Cells-Urine 0 SEEN /hpf (0-5); White Blood Cells 0 SEEN /hpf (0-5)
[2018-03-24 08:58] LABS: Color, Urine Straw (Yellow); Glucose, Dipstick Normal (Normal); Ketone-Dipstick Negative (Negative); Leukocyte Esterase-Dipstick Negative /ul (Negative); Nitrite-Dipstick Negative (Negative); Occult Blood-Urine Negative /ul (Negative); Protein-Dipstick Negative (Negative); Urine Bilirubin Dipstick Negative (Negative); Urine Clarity Clear (Clear); Urine Urobilinogen Normal (Normal); Urine pH 6.5 (5.0 - 8.0)
[2018-03-24 09:04] LABS: Bacteria RARE /hpf (None Seen); Squamous Epithelial Cells - UA 0-5 SEEN /hpf (5-10)
--- NOTE | 2018-03-24 10:30 | CASEMGMT ---
KATTY DEL TORO NOTE: RN CM to room to talk with pt. *Reviewed YOU[employer] form with pt and pt signed form. Denies having any questions at this time. Offered MCR Handout Are you a hospital inpatient or outpatient but pt declines, stating she already has this information. Kim COKERN KATTY CM
--- NOTE | 2018-03-24 12:19 | PCM.PN.HOSP ---
Subjective: Been seen did complain of migrainous headache the day prior treated with Toradol. She also did does complain of dysuria urinalysis was sent for subsequent evaluation. Patient seen still complains of dyspnea at rest as well as wheezing. Consultation was placed to pulmonary medicine. Case discussed with Dr. Sifuentes. Objective: GENERAL: cooperative HEENT: Atraumatic; moist oral mucosa EYES; Anicteric, Normal Conjunctiva NECK; supple, normal thyroid, no distended JVD. RESPIRATORY: Diminished to auscultation bilaterally, bilateral wheezes CARDIOVASCULAR: Regular S1 S2, no audible murmurs GI: soft, non-tender, normoactive bowel sounds, : No Renal angle tenderness; EXTREMITIES: No edema, no clubbing, no cyanosis. MUSCULOSKELETAL: No Joint Tenderness; no muscle waisting NEURO: Awake; no lateralizing signs. SKIN: No Rash PSYCH; Normal affect Vitals/I&O's: Vital Signs Temp Pulse Resp BP Pulse Ox 97.7 F L 91 16 150/76 H 97 03/24/18 11:54 03/24/18 11:54 03/24/18 11:54 03/24/18 11:54 03/24/18 11:54 Oxygen Flow Rate (L/min) 3 Oxygen Delivery Method Room Air Weight: 68.8 kg Body Mass Index (BMI) 26.9 Intake and Output for Last 24 Hours 03/22/18 03/23/18 03/24/18 23:59 23:59 23:59 Intake Total 3265 / 3265 1100 / 1100 Balance 3265 / 3265 1100 / 1100 Microbiology Past 72 Hours 03/22/18 23:30 Mucosa - Nasopharyngeal Respiratory Panel (PCR) - Final Laboratory Results 03/24/18 08:45: Urine Color Straw, Urine Clarity Clear, Urine pH 6.5, Ur Specific [place] 1.010, Urine Protein Negative, Urine Glucose (UA) Normal, Urine Ketones Negative, Urine Occult Blood Negative, Urine Nitrite Negative, Urine Bilirubin Negative, Urine Urobilinogen Normal, Ur Leukocyte Esterase Negative, Urine RBC 0 SEEN, Urine WBC 0 SEEN, Ur Squamous Epith Cells 0-5 SEEN, Urine Bacteria RARE, Urine Mucus 0 SEEN Current Medications Acetaminophen (Tylenol) 650 mg PO Q6H PRN PRN PRN Reason: HEADACHE Last Admin: 03/23/18 21:19 Dose: 650 mg Albuterol Sulfate (Ventolin Aerosols) 2.5 mg INHALATION Q2H PRN PRN PRN Reason: WHEEZING Albuterol/Ipratropium (Duoneb) 3 ml INHALATION 4X/DAY [facility] Last Admin: 03/24/18 10:28 Dose: 3 ml Amlodipine Besylate (Norvasc) 5 mg PO DAILY@2199 [facility] Last Admin: 03/23/18 21:19 Dose: 5 mg Atorvastatin Calcium (Lipitor) 20 mg PO DAILY@2199 [facility] Last Admin: 03/23/18 21:19 Dose: 20 mg Cholecalciferol (Vitamin D) 2,000 unit PO DAILY [facility] Last Admin: 03/24/18 08:38 Dose: Not Given Cyanocobalamin (Vitamin B12) 500 mcg PO DAILY [facility] Last Admin: 03/24/18 08:38 Dose: Not Given Enoxaparin Sodium (Lovenox) 40 mg SC DAILY@1000 [facility] Last Admin: 03/24/18 08:39 Dose: 40 mg Lisinopril (Zestril) 20 mg PO DAILY@2199 [facility] Last Admin: 03/23/18 21:19 Dose: 20 mg Magnesium Hydroxide (Milk Of Magnesia) 30 ml PO DAILY PRN PRN PRN Reason: Constipation Methylprednisolone (Solu-Medrol) 40 mg IV Q8 [facility] Last Admin: 03/24/18 05:55 Dose: 40 mg Montelukast Sodium (Singulair) 10 mg PO 2200 [facility] Last Admin: 03/23/18 10:43 Dose: 10 mg Pantoprazole Sodium (Protonix) 20 mg PO QHS [facility] Last Admin: 03/23/18 21:19 Dose: 20 mg Sodium Chloride () 5 - 15 ml IV UD PRN PRN Reason: SALINE FLUSH Last Admin: 03/23/18 18:08 Dose: 10 ml Throat Lozenges (Cepacol Sore Throat Lozenge) 1 lozenge MUCOUS MEM Q2H PRN PRN PRN Reason: SORE THROAT Last Admin: 03/23/18 18:11 Dose: 1 lozenge Trazodone HCl (Desyrel) 100 mg PO QHS [facility] Last Admin: 03/23/18 21:19 Dose: 100 mg Venlafaxine HCl (Effexor Xr) 75 mg PO DAILY [facility] Last Admin: 03/24/18 08:39 Dose: 75 mg Vitamin [facility]Vitamin E) [facility] Last Admin: 03/24/18 08:38 Dose: Not Given Medical Necessity - Tobacco Use Smoking Status: Never smoker Assessment/Plan All Active Problems (Last Reviewed 01/27/18 @ 06:42 by Irma Davidson) Eosinophilia (Acute) Hx of hernia repair (Resolved) History of hysterectomy (Resolved) History of tonsillectomy (Resolved) Hernia of abdominal cavity, with obstruction (Acute) Lactic acidosis (Resolved) Respiratory failure with hypoxia and hypercapnia (Resolved) Patient is a 70-year-old lady with history of great intermittent asthma who presented with a 5-day history of cough nasal congestion as well as shortness of breath. Patient had apparently used her home treatment regimen without much improvement. Presented to the emergency department and assessment of acute asthma exacerbation made admitted to a monitored bed for further management 1. Acute asthma exacerbation possibly preceded by an upper respiratory tract infection possibly viral. Patient respiratory panel however came back negative admitted to regular nursing floor managed with systemic steroid as well as aerosol treatment. With patient remaining persistently bronchospastic consultation was placed to pulmonary medicine patient has been seen by Dr. Sifuentes 2. Severe persistent asthma patient is being considered for Biologics (immunotherapy) as outpatient 3. Hypertension-blood pressure controlled, home medications continued with dose adjustment as needed 4. Dyslipidemia-patient is on statin therapy, continued at home dose 5. Depression with anxiety patient is on Effexor and trazodone 6. Chronic migraine headache with exacerbation treated with Toradol 7. DVT prophylaxis SC Lovenox Code Visit OBSV E&M: 99577 Observ/hosp same date L3
--- NOTE | 2018-03-24 12:22 | PN_ITS ---
Subjective: Been seen did complain of migrainous headache the day prior treated with Toradol. She also did does complain of dysuria urinalysis was sent for subs equent evaluation. Patient seen still complains of dyspnea at rest as well as wheezing. Consultation was placed to pulmonary medicine. Case discussed with Dr. Sifuentes. Objective: GENERAL: cooperative HEENT: Atraumatic; moist oral mucosa EYES; Anicteric, Normal Conjunctiva NECK; supple, normal thyroid, no distended JVD. RESPIRATORY: Diminished to auscultation bilaterally, bilateral wheezes CARDIOVASCULAR: Regular S1 S2, no audible murmurs GI: soft, non-tender, normoactive bowel sounds, : No Renal angle tenderness; EXTREMITIES: No edema, no clubbing, no cyanosis. MUSCULOSKELETAL: No Joint Tenderness; no muscle waisting NEURO: Awake; no lateralizing signs. SKIN: No Rash PSYCH; Normal affect Vitals/I&O's: Vital Signs Temp Pulse Resp BP Pulse Ox 97.7 F L 91 16 150/76 H 97 03/24/18 11:54 03/24/18 11:54 03/24/18 11:54 03/24/18 11:54 03/24/18 11:54 Oxygen Flow Rate (L/min) 3 Oxygen Delivery Method Room Air Weight: 68.8 kg Body Mass Index (BMI) 26.9 Intake and Output for Last 24 Hours 03/22/18 03/23/18 03/24/18 23:59 23:59 23:59 Intake Total 3265 / 3265 1100 / 1100 Balance 3265 / 3265 1100 / 1100 Microbiology Past 72 Hours 03/22/18 23:30 Mucosa - Nasopharyngeal Respiratory Panel (PCR) - Final Laboratory Results 03/24/18 08:45: Urine Color Straw, Urine Clarity Clear, Urine pH 6.5, Ur Specific [place] 1.010, Urine Protein Negative, Urine Glucose (UA) Normal, Urine Ketones Negative, Urine Occult Blood Negative, Urine Nitrite Negative, Urine Bilirubin Negative, Urine Urobilinogen Normal, Ur Leukocyte Esterase Negative, Urine RBC 0 SEEN, Urine WBC 0 SEEN, Ur Squamous Epith Cells 0-5 SEEN, Urine Bacteria RARE, Urine Mucus 0 SEEN Current Medications Acetaminophen (Tylenol) 650 mg PO Q6H PRN PRN PRN Reason: HEADACHE Last Admin: 03/23/18 21:19 Dose: 650 mg Albuterol Sulfate (Ventolin Aerosols) 2.5 mg INHALATION Q2H PRN PRN PRN Reason: WHEEZING Albuterol/Ipratropium (Duoneb) 3 ml INHALATION 4X/DAY [facility] Last Admin: 03/24/18 10:28 Dose: 3 ml Amlodipine Besylate (Norvasc) 5 mg PO DAILY@2199 [facility] Last Admin: 03/23/18 21:19 Dose: 5 mg Atorvastatin Calcium (Lipitor) 20 mg PO DAILY@2199 [facility] Last Admin: 03/23/18 21:19 Dose: 20 mg Cholecalciferol (Vitamin D) 2,000 unit PO DAILY [facility] Last Admin: 03/24/18 08:38 Dose: Not Given Cyanocobalamin (Vitamin B12) 500 mcg PO DAILY [facility] Last Admin: 03/24/18 08:38 Dose: Not Given Enoxaparin Sodium (Lovenox) 40 mg SC DAILY@1000 [facility] Last Admin: 03/24/18 08:39 Dose: 40 mg Lisinopril (Zestril) 20 mg PO DAILY@2199 [facility] Last Admin: 03/23/18 21:19 Dose: 20 mg Magnesium Hydroxide (Milk Of Magnesia) 30 ml PO DAILY PRN PRN PRN Reason: Constipation Methylprednisolone (Solu-Medrol) 40 mg IV Q8 [facility] Last Admin: 03/24/18 05:55 Dose: 40 mg Montelukast Sodium (Singulair) 10 mg PO 220 [facility] Last Admin: 03/23/18 10:43 Dose: 10 mg Pantoprazole Sodium (Protonix) 20 mg PO QHS [facility] Last Admin: 03/23/18 21:19 Dose: 20 mg Sodium Chloride () 5 - 15 ml IV UD PRN PRN Reason: SALINE FLUSH Last Admin: 03/23/18 18:08 Dose: 10 ml Throat Lozenges (Cepacol Sore Throat Lozenge) 1 lozenge MUCOUS MEM Q2H PRN PRN PRN Reason: SORE THROAT Last Admin: 03/23/18 18:11 Dose: 1 lozenge Trazodone HCl (Desyrel) 100 mg PO QHS [facility] Last Admin: 03/23/18 21:19 Dose: 100 mg Venlafaxine HCl (Effexor Xr) 75 mg PO DAILY [facility] Last Admin: 03/24/18 08:39 Dose: 75 mg [facility] Last Admin: 03/24/18 08:38 Dose: Not Given Medical Necessity - Tobacco Use Smoking Status: Never smoker Assessment/Plan All Active Problems (Last Reviewed 01/27/18 @ 06:42 by Imra Davidson) Eosinophilia (Acute) Hx of hernia repair (Resolved) History of hysterectomy (Resolved) History of tonsillectomy (Resolved) Hernia of abdominal cavity, with obstruction (Acute) Lactic acidosis (Resolved) Respiratory failure with hypoxia and hypercapnia (Resolved) Patient is a 70-year-old lady with history of great intermittent asthma who presented with a 5-day history of cough nasal congestion as well as shortness of breath. Patient had apparently used her home treatment regimen without much improvement. Presented to the emergency department and assessment of acute asthma exacerbation made admitted to a monitored bed for further management 1. Acute asthma exacerbation possibly preceded by an upper respiratory tract infection possibly viral. Patient respiratory panel however came back negative admitted to regular nursing floor managed with systemic steroid as well as aerosol treatment. With patient remaining persistently bronchospastic consultation was placed to pulmonary medicine patient has been seen by Dr. Sifuentes 2. Severe persistent asthma patient is being considered for Biologics (immunotherapy) as outpatient 3. Hypertension-blood pressure controlled, home medications continued with dose adjustment as needed 4. Dyslipidemia-patient is on statin therapy, continued at home dose 5. Depression with anxiety patient is on Effexor and trazodone 6. Chronic migraine headache with exacerbation treated with Toradol 7. DVT prophylaxis SC Lovenox Code Visit OBSV E&M: 52038 Observ/hosp same date L3
[2018-03-24] MEDS: 0.9% NaCl Peripheral Flush Adult/Peds IV (14:07)
--- NOTE | 2018-03-24 14:37 | CON.PCM_ITS ---
Reason for Consult Date of Consultation: 03/24/18 Reason for Consultation: Asthma exacerbation History of Present Illness: The patient is a 67-year-old female, with a history as outlined below, who initially presented to the emergency department on March 22 with worsening shortness of breath and cough. She has a known history of severe persistent asthma along with eosinophilia and currently follows with Dr. Rojo in the pulmonary medicine clinic. She was last seen by him at the end of January, at which time, the decision was made to proceed with qualifying the patient for Nucala, as the patient is currently on maximal asthma therapy. She has a history of recurrent exacerbations. She does report that she previously had allergy testing done which did reveal a significant response to both cat and dog dander. However, the patient does report that she does currently keep 1 cat and 2 dogs as pets in her home environment. She does have peripheral eosinophilia along with an elevated IgE level to 74. The patient reports that her insurance company is requiring an additional blood draw to document continued eosinophilia prior to approval of Nucala. However, in order to accomplish this, the patient needs to be off of steroids. The patient's presenting plain film chest x-ray revealed no acute cardiopulmonary process. Respiratory viral panel was negative. To date, the patient has been treated symptomatically with scheduled bronchodilators, Singulair and prednisone. She is improving slowly with time. I spoke to her at length today regarding the need to consider getting rid of her animals and/or having family members care for them while the patient recovers, as they are a known trigger for her. She ideally needs to be off of steroids for a period of time prior to her lab work being drawn, in order to qualify her for Nucala. Past Medical History Past Medical History (Chronic Problems): Chronic Problems (Last Reviewed 01/27/18 @ 06:42 by Irma Davidson) Hypersomnia (Chronic) Persistent asthma (Chronic) Chronic diastolic heart failure (Chronic) Palpitations (Chronic) HTN (hypertension) (Chronic) Medical History: Medical History (Last Reviewed 01/27/18 @ 06:42 by Irma Davidson) Persistent asthma (Chronic) J45.909 Chronic diastolic heart failure (Chronic) I50.32 Palpitations (Chronic) R00.2 History of hysterectomy (Resolved) Z90.710 HTN (hypertension) (Chronic) I10 Cough R05 Dyspnea R06.00 Stage 2 chronic kidney disease N18.2 Wheezing R06.2 Allergies codeine Allergy (Severe, Verified 03/22/18 21:42) DIFFICULTY BREATHING/THROAT SWELLING nausea/swelling of mouth hydromorphone HCl [From Dilaudid] Allergy (Verified 03/22/18 21:42) EXTREME LETHARGY Home Medications: Ambulatory Orders Medication Instructions Recorded Amlodipine/Benazepril [Lotrel 5-20 1 cap PO QHS 06/29/15 MG Capsule] Omeprazole [Prilosec] 20 mg PO QHS 05/24/15 cyanocobalamin (vit B-12) 500 mcg 500 mcg PO DAILY 08/03/17 tablet atorvastatin 20 mg tablet 20 mg PO DAILY 10/19/17 fluticasone 500 mcg-salmeterol 50 1 inh INHALATION BID 10/19/17 mcg/dose blistr powdr for inhalation montelukast 10 mg tablet 10 mg PO QPM 01/27/18 Albuterol IH (ProAir) [Proair Hfa 2 puff INHALATION Q6H PRN PRN 03/22/18 (SP)Vent Pts] Cholecalciferol (Vitamin D3) 2,000 unit PO DAILY 03/22/18 [D3-2000] Ipratropium/Albuterol Sulfate 1 vial INHALATION 4X/DAY 03/22/18 [Iprat-Albut 0.5-3(2.5) mg/3 ml] Venlafaxine XR [Effexor Xr] 75 mg PO DAILY 03/22/18 Vitamin E 400 units PO DAILY 03/22/18 traZODone [Desyrel] 100 mg PO QHS 03/22/18 Surgical History: Surgical History (Last Reviewed 01/27/18 @ 06:42 by Irma Davidson) Hx of hernia repair (Resolved) Z98.890, Z87.19 History of tonsillectomy (Resolved) Z90.89 Surgical History: noncontributory Lives: Spouse/ Significant Other Smoking Status: Never smoker Alcohol: None - *Family History Maternal Family History: Family History (Last Reviewed 01/27/18 @ 06:42 by Irma Davidson) Brother CAD (coronary artery disease) Father CHF (congestive heart failure) Brother Myocardial infarction History Items: No pertinent history Paternal Family History: Family History (Last Reviewed 01/27/18 @ 06:42 by Irma Davidson) Brother CAD (coronary artery disease) Father CHF (congestive heart failure) Brother Myocardial infarction History Items: Heart Disease Review of Systems Constitutional: Denies: Chills, Fever Eyes: Denies: Blurred vision, Double vision HEENT: Denies: Head Aches, Sinus Congestion, Sinus Drainage Cardiovascular: Denies: Chest Pain, Palpitations Respiratory: Reports: Cough, Shortness of Breath, Wheezing Gastrointestinal: Denies: Abdominal Pain, Nausea, Vomiting Genitourinary: Denies: Dysuria Musculoskeletal: Denies: Joint Pain, Joint Tenderness Skin: Denies: Rash, Wounds Neurological: Denies: Numbness, Tingling, Focal weakness Psychiatric: Denies: Anxiety, Depression, Homicidal Ideations, Suicidal Id eations Hematologic/ Lymphatic: Denies: Easy Bruising, Easy Bleeding Objective: The patient's most recent lab work, culture data and imaging studies have all been personally reviewed. - Physical Exam General: Alert, Oriented x3, Cooperative, No apparent distress HEENT: Atraumatic, PERRLA, Normocephalic Oral: No Gingival or Mucosal Lesions/ Ulcerations Neck: Supple, No Nodes, Trachea Midline Lungs: Wheezes, - - Speaking in complete sentences. No accessory muscle use. Cardiovascular: Regular rate, Regular Rhythm, Normal S1, Normal S2, No murmurs Abdomen: Bowel Sounds Present, Soft, Non Tender, Non-Distended Extremities: No clubbing, No cyanosis, No edema Skin: No rashes, No breakdown Musculoskeletal: No Tenderness to Palpation of Joints or Extremities, No Muscle Wasting Lymphatic: No Cervical, Supraclavicular, or Inguinal Adenopathy Neurological: Cranial nerves II-XII grossly intact, Neuro grossly intact Psych/Mental Status: Alert and oriented to time, place, person, mood and affect Vital Signs Temp Pulse Resp BP Pulse Ox 36.4 C L 84 16 145/70 H 97 03/24/18 14:10 03/24/18 14:28 03/24/18 14:28 03/24/18 14:10 03/24/18 14:10 Oxygen Flow Rate (L/min) 3 Oxygen Delivery Method Room Air Weight: 151 lb 10.848 oz Body Mass Index (BMI) 26.9 Intake and Output for Last 24 Hours 03/22/18 03/23/18 03/24/18 23:59 23:59 23:59 Intake Total 3265 / 3265 1100 / 1100 Balance 3265 / 3265 1100 / 1100 Microbiology Past 72 Hours 03/22/18 23:30 Respiratory Panel (PCR) - Final Mucosa - Nasopharyngeal Laboratory Tests Past 24 Hrs 03/24/18 08:45 Urine Color Straw Urine Clarity Clear Urine pH 6.5 Ur Specific [place] 1.010 Urine Protein Negative Urine Glucose (UA) Normal Urine Ketones Negative Urine Occult Blood Negative Urine Nitrite Negative Urine Bilirubin Negative Urine Urobilinogen Normal Ur Leukocyte Esterase Negative Urine RBC 0 SEEN Urine WBC 0 SEEN Ur Squamous Epith Cells 0-5 SEEN Urine Bacteria RARE Urine Mucus 0 SEEN Clinical Impression(s) from Imaging Studies Chest X-Ray 03/22/18 17:37 IMPRESSION: There are findings consistent with COPD. There is no evidence of acute chest disease. Electronically Signed: Kong Kapadia MD at 18:47 EST , Service support , Assessment/Plan All Active Problems (Last Reviewed 01/27/18 @ 06:42 by Irma Davidson) Eosinophilia (Acute) Hx of hernia repair (Resolved) History of hysterectomy (Resolved) History of tonsillectomy (Resolved) Hernia of abdominal cavity, with obstruction (Acute) Lactic acidosis (Resolved) Respiratory failure with hypoxia and hypercapnia (Resolved) RECOMMENDATIONS: 1. Continue scheduled bronchodilators. 2. Continue IV steroids yet today, with plans to transition to prednisone beginning tomorrow. 3. Recommend prolonged steroid taper at discharge. 4. Discussed avoidance of known triggers with the patient, including the animals that she currently keeps as pets in her home environment. IMPRESSIONS: 1. Severe persistent asthma with frequent exacerbations The patient has a history of severe persistent asthma with frequent exacerbations. She is being followed longitudinally in the pulmonary medicine clinic by Dr. Rojo. At her last office visit, the decision was made to pursue adding Nucala to the patient's already maximized asthma regimen. However, the patients insurance is requiring an additional blood draw, which I assume was a CBC with differential, to document ongoing eosinophilia. However, the patient's eosinophil counts are strongly influenced by the administration of corticosteroids. She reports that at her last office visit, Dr. Rojo indicated that he would like for her to be off of steroids for 30 days prior to getting her blood drawn. The patient has yet to be able to do this, as she keeps experiencing exacerbations. However, she readily admits that she has a known allergy to both cat and dog dander, both of which she keeps his pets in her home environment. Therefore, I did discuss with her about the possibility of either getting rid of her pets or having family members care for them while she recovers. In the interim, I would not change your current management. 2. Hypertension/hyperlipidemia/depression/anxiety Complicates care, management, recovery and prognosis. Continue home medications as indicated. This note was generated with [employer] dictation software. It may contain incorrect words, spelling, and punctuation that were not noted in checking the note before signing. Code Visit Inpatient E&M: 57678 Init Hosp L2
[2018-03-24] MEDS: Acetaminophen 325 MG Tablet 650 MG PO (17:58)
[2018-03-24] MEDS: Albuterol 2.5 MG/3 ML VIAL.NEB. INHALATION (19:20)
[2018-03-24] MEDS: traZODone 100 MG Tablet PO (22:41)
[2018-03-24] MEDS: amLODIPine 5 MG Tablet PO (22:41)
[2018-03-24] MEDS: Pantoprazole Sodium 20 MG Tablet PO (22:41)
[2018-03-24] MEDS: Montelukast 10 MG Tablet PO (22:42)
[2018-03-24] MEDS: Atorvastatin Calcium 20 MG Tablet PO (22:42)
[2018-03-24] MEDS: Lisinopril 20 MG Tablet PO (22:42)
[2018-03-24] MEDS: Ketorolac 30 MG/ML Syringe IV (22:51)
[2018-03-25 02:20] VITALS: BP 131/62; PULSE 80; RESP 16; TEMP 36.8; O2SAT 94
[2018-03-25 06:55] VITALS: PULSE 88; RESP 21; O2SAT 91
[2018-03-25] MEDS: Ipratropium/Albuterol Sulfate 3 ML AMPUL.NEB INHALATION ×2 (06:58→11:42)
[2018-03-25] MEDS: Vitamin E 400 UNITS Capsule PO (07:49)
--- NOTE | 2018-03-25 08:12 | DCINST_ITS ---
You will use the following diet at home:: No restrictions Allergies/Adverse Reactions: Allergies codeine Allergy (Severe, Verified 03/22/18 21:42) DIFFICULTY BREATHING/THROAT SWELLING nausea/swelling of mouth hydromorphone HCl [From Dilaudid] Allergy (Verified 03/22/18 21:42) EXTREME LETHARGY Medications to take at Discharge Omeprazole [Prilosec] 20 mg PO QHS 05/24/15 cyanocobalamin (vit B-12) 500 mcg tablet 500 mcg PO DAILY 08/03/17 atorvastatin 20 mg tablet 20 mg PO DAILY 10/19/17 fluticasone 500 mcg-salmeterol 50 mcg/dose blistr powdr for inhalation 1 inh INHALATION BID 10/19/17 montelukast 10 mg tablet 10 mg PO QPM 01/27/18 Albuterol IH (ProAir) [Proair Hfa] 2 puff INHALATION Q6H PRN PRN 03/22/18 Cholecalciferol (Vitamin D3) [D3-2000] 2,000 unit PO DAILY 03/22/18 Venlafaxine XR [Effexor Xr] 75 mg PO DAILY 03/22/18 Vitamin E 400 units PO DAILY 03/22/18 traZODone [Desyrel] 100 mg PO QHS 03/22/18 Amlodipine [Norvasc] 10 mg PO DAILY #60 tablet 03/25/18 Ipratropium/Albuterol Sulfate [Iprat-Albut 0.5-3(2.5) mg/3 ml] 1 vial INHALATION 4X/DAY #120 ampul.neb 03/25/18 Prednisone 10 mg PO UD #32 tablet 03/25/18 The following prescriptions were given: Amlodipine [Norvasc] 10 mg PO DAILY #60 tablet Ipratropium/Albuterol Sulfate [Iprat-Albut 0.5-3(2.5) mg/3 ml] 1 vial INHALATION 4X/DAY #120 ampul.neb Prednisone 10 mg PO UD #32 tablet Primary Care Physician: Andrew Simms MD [Primary Care Provider] - Please follow up with your Primary Care Physician in: in 5-7 days Test Results: Test results from this visit will be discussed in further detail at your follow- up appointment, if applicable. Please Follow Up With: Umesh Rojo MD When: in 1-2n weeks Proposed Discharge Date: 03/25/18
[2018-03-25 08:15] VITALS: BP 149/75; PULSE 88; RESP 20; TEMP 36.6; O2SAT 97
--- NOTE | 2018-03-25 08:16 | DS.PCM_ITS ---
Discharge Date and Diagnosis - Problem List Patient Problems: Active and Suspected Problems (Last Reviewed 01/27/18 @ 06:42 by Irma Davidson) Asthma exacerbation (Acute) Date of Admission: 03/22/18 Date of Discharge: 03/25/18 - Primary Discharge Diagnosis Active and Suspected Problems (Last Reviewed 01/27/18 @ 06:42 by Irma Davidson) Asthma exacerbation (Acute) - Secondary Discharge Diagnosis Chronic Problems (Last Reviewed 01/27/18 @ 06:42 by Irma Davidson) Hypersomnia (Chronic) Persistent asthma (Chronic) Chronic diastolic heart failure (Chronic) Palpitations (Chronic) HTN (hypertension) (Chronic) Hospital Course and Treatment Imaging Results: Clinical Impression(s) from Imaging Studies Chest X-Ray 03/22/18 17:37 IMPRESSION: There are findings consistent with COPD. There is no evidence of acute chest disease. Electronically Signed: Kong Kapadia MD at 18:47 EST , Service support , Operations: [email or web address] Summary of Care Provided: Patient is a 70-year-old lady with history of great intermittent asthma who presented with a 5-day history of cough nasal congestion as well as shortness of breath. Patient had apparently used her home treatment regimen without much improvement. Presented to the emergency department and assessment of acute asthma exacerbation made admitted to a monitored bed for further management 1. Acute asthma exacerbation possibly preceded by an upper respiratory tract infection possibly viral. Patient respiratory panel however came back negative admitted to regular nursing floor managed with systemic steroid as well as aerosol treatment. With patient remaining persistently bronchospastic consultation was placed to pulmonary medicine patient has been seen by Dr. Sifuentes. Notes from Dr. Sifuentes reviewed. Was discharged home with tapering dose of prednisone she was also instructed to get rid of hear pets including chickens and cats and possibly dog 2. Severe persistent asthma patient is being considered for Biologics (immunotherapy) as outpatient 3. Hypertension-blood pressure controlled, home medications continued with dose adjustment as needed 4. Dyslipidemia-patient is on statin therapy, continued at home dose 5. Depression with anxiety patient is on Effexor and trazodone 6. Chronic migraine headache with exacerbation treated with Toradol 7. DVT prophylaxis SC Lovenox Patient Problems: Active and Suspected Problems (Last Reviewed 01/27/18 @ 06:42 by Irma Davidson) Asthma exacerbation (Acute) Objective: GENERAL: cooperative HEENT: Atraumatic; moist oral mucosa EYES; Anicteric, Normal Conjunctiva NECK; supple, normal thyroid, no distended JVD. RESPIRATORY: Diminished to auscultation bilaterally, bilateral wheezes CARDIOVASCULAR: Regular S1 S2, no audible murmurs GI: soft, non-tender, normoactive bowel sounds, : No Renal angle tenderness; EXTREMITIES: No edema, no clubbing, no cyanosis. MUSCULOSKELETAL: No Joint Tenderness; no muscle waisting NEURO: Awake; no lateralizing signs. SKIN: No Rash PSYCH; Normal affect - Physical Exam Vital Signs Temp Pulse Resp BP Pulse Ox 98.2 F 80 16 131/62 H 94 03/25/18 02:20 03/25/18 02:20 03/25/18 02:20 03/25/18 02:20 03/25/18 02:20 Oxygen Flow Rate (L/min) 3 Oxygen Delivery Method Room Air Weight: 68.8 kg Body Mass Index (BMI) 26.9 Intake and Output for Last 24 Hours 03/23/18 03/24/18 03/25/18 23:59 23:59 23:59 Intake Total 3265 / 3265 1900 / 1900 600 / 600 Balance 3265 / 3265 1900 / 1900 600 / 600 Microbiology Past 72 Hours 03/22/18 23:30 Respiratory Panel (PCR) - Final Mucosa - Nasopharyngeal Laboratory Tests Past 24 Hrs 03/24/18 08:45 Urine Color Straw Urine Clarity Clear Urine pH 6.5 Ur Specific [place] 1.010 Urine Protein Negative Urine Glucose (UA) Normal Urine Ketones Negative Urine Occult Blood Negative Urine Nitrite Negative Urine Bilirubin Negative Urine Urobilinogen Normal Ur Leukocyte Esterase Negative Urine RBC 0 SEEN Urine WBC 0 SEEN Ur Squamous Epith Cells 0-5 SEEN Urine Bacteria RARE Urine Mucus 0 SEEN Discharge Diet: No Restrictions Discharge Activity: Return to Normal Activity Home Medications: Medications to take at Discharge Omeprazole [Prilosec] 20 mg PO QHS 05/24/15 cyanocobalamin (vit B-12) 500 mcg tablet 500 mcg PO DAILY 08/03/17 atorvastatin 20 mg tablet 20 mg PO DAILY 10/19/17 fluticasone 500 mcg-salmeterol 50 mcg/dose blistr powdr for inhalation 1 inh INHALATION BID 10/19/17 montelukast 10 mg tablet 10 mg PO QPM 01/27/18 Albuterol IH (ProAir) [Proair Hfa] 2 puff INHALATION Q6H PRN PRN 03/22/18 Cholecalciferol (Vitamin D3) [D3-2000] 2,000 unit PO DAILY 03/22/18 Venlafaxine XR [Effexor Xr] 75 mg PO DAILY 03/22/18 Vitamin E 400 units PO DAILY 03/22/18 traZODone [Desyrel] 100 mg PO QHS 03/22/18 Amlodipine [Norvasc] 10 mg PO DAILY #60 tablet 03/25/18 Ipratropium/Albuterol Sulfate [Iprat-Albut 0.5-3(2.5) mg/3 ml] 1 vial INHALATION 4X/DAY #120 ampul.neb 03/25/18 Prednisone 10 mg PO UD #32 tablet 03/25/18 Following Prescrptions Were Given to Patient: Amlodipine [Norvasc] 10 mg PO DAILY #60 tablet Ipratropium/Albuterol Sulfate [Iprat-Albut 0.5-3(2.5) mg/3 ml] 1 vial INHALATION 4X/DAY #120 ampul.neb Prednisone 10 mg PO UD #32 tablet Primary Care Physician: Andrew Simms MD [Primary Care Provider] - Please follow up with your Primary Care Physician in: in 5-7 days Please Follow Up With: Umesh Rojo MD When: in 1-2n weeks Disposition: Home Minutes spent on discharge:: 25 Patient Condition:: Stable Medical Necessity - Tobacco Use Smoking Status: Never smoker Meaningful Use Info Meaningful Use Diagnoses (Choose all that apply): None applicable Code Visit OBSV E&M: 90895 Observation care discharge
--- NOTE | 2018-03-25 08:51 | PCM.PROGNOTE ---
Patient Problems: Active and Suspected Problems (Last Reviewed 01/27/18 @ 06:42 by Irma Davidson) Asthma exacerbation (Acute) Subjective: The patient was seen and examined at the bedside this morning. Events from the last 24 hours have been reviewed. The patient is currently afebrile, hemodynamically stable and maintaining appropriate oxygen saturations on room air. Breathing quality has improved. The patient does report that she has a friend who is coming over to to take ownership of her cat. Objective: The patient's most recent lab work, culture data and imaging studies have all been personally reviewed. Respiratory viral panel was negative. - Physical Exam General: Alert, Oriented x3, Cooperative, No apparent distress HEENT: Atraumatic, PERRLA, Normocephalic Oral: No Gingival or Mucosal Lesions/ Ulcerations Neck: Supple, No Nodes, Trachea Midline Lungs: Diminished, - - Some residual wheezing noted, although improved from yesterday. Cardiovascular: Regular rate, Regular Rhythm, Normal S1, Normal S2, No murmurs Abdomen: Bowel Sounds Present, Soft, Non Tender, Non-Distended Extremities: No clubbing, No cyanosis, No edema Skin: No breakdown Musculoskeletal: No Tenderness to Palpation of Joints or Extremities, No Muscle Wasting Lymphatic: No Cervical, Supraclavicular, or Inguinal Adenopathy Neurological: Cranial nerves II-XII grossly intact, Neuro grossly intact Psych/Mental Status: Alert and oriented to time, place, person, mood and affect Vital Signs Temp Pulse Resp BP Pulse Ox 36.8 C 80 16 131/62 H 94 03/25/18 02:20 03/25/18 02:20 03/25/18 02:20 03/25/18 02:20 03/25/18 02:20 Oxygen Flow Rate (L/min) 3 Oxygen Delivery Method Room Air Weight: 151 lb 10.848 oz Body Mass Index (BMI) 26.9 Intake and Output for Last 24 Hours 03/23/18 03/24/18 03/25/18 23:59 23:59 23:59 Intake Total 3265 / 3265 1900 / 1900 600 / 600 Balance 3265 / 3265 1900 / 1900 600 / 600 Microbiology Past 72 Hours 03/22/18 23:30 Respiratory Panel (PCR) - Final Mucosa - Nasopharyngeal Laboratory Tests Past 24 Hrs 03/24/18 08:45 Urine Color Straw Urine Clarity Clear Urine pH 6.5 Ur Specific [place] 1.010 Urine Protein Negative Urine Glucose (UA) Normal Urine Ketones Negative Urine Occult Blood Negative Urine Nitrite Negative Urine Bilirubin Negative Urine Urobilinogen Normal Ur Leukocyte Esterase Negative Urine RBC 0 SEEN Urine WBC 0 SEEN Ur Squamous Epith Cells 0-5 SEEN Urine Bacteria RARE Urine Mucus 0 SEEN Clinical Impression(s) from Imaging Studies Chest X-Ray 03/22/18 17:37 IMPRESSION: There are findings consistent with COPD. There is no evidence of acute chest disease. Electronically Signed: Kong Kapadia MD at 18:47 EST , Service support , Medical Necessity - Tobacco Use Smoking Status: Never smoker Assessment/Plan All Active Problems (Last Reviewed 01/27/18 @ 06:42 by Irma Davidson) Asthma exacerbation (Acute) Eosinophilia (Acute) Hx of hernia repair (Resolved) History of hysterectomy (Resolved) History of tonsillectomy (Resolved) Hernia of abdominal cavity, with obstruction (Acute) Lactic acidosis (Resolved) Respiratory failure with hypoxia and hypercapnia (Resolved) RECOMMENDATIONS: 1. Continue scheduled bronchodilators. 2. Continue prednisone with plans for prolonged steroid taper at discharge. 3. Discussed avoidance of known triggers with the patient, including the animals that she currently keeps as pets in her home environment. 4. Follow-up in the pulmonary medicine clinic as scheduled. IMPRESSIONS: 1. Severe persistent asthma with frequent exacerbations The patient has a history of severe persistent asthma with frequent exacerbations. She is being followed longitudinally in the pulmonary medicine clinic by Dr. Rojo. At her last office visit, the decision was made to pursue adding Nucala to the patient's already maximized asthma regimen. However, the patients insurance is requiring an additional blood draw, which I assume was a CBC with differential, to document ongoing eosinophilia. However, the patient's eosinophil counts are strongly influenced by the administration of corticosteroids. She reports that at her last office visit, Dr. Rojo indicated that he would like for her to be off of steroids for 30 days prior to getting her blood drawn. The patient has yet to be able to do this, as she keeps experiencing exacerbations. However, she readily admits that she has a known allergy to both cat and dog dander, both of which she keeps as pets in her home environment. Therefore, I did discuss with her about the possibility of either getting rid of her pets or having family members care for them while she recovers. 2. Hypertension/hyperlipidemia/depression/anxiety Complicates care, management, recovery and prognosis. Continue home medications as indicated. This note was generated with [employer] software. It may contain incorrect words, spelling, and punctuation that were not noted in checking the note before signing. Code Visit Inpatient E&M: 38443 Subs Hosp L2
[2018-03-25] MEDS: Albuterol 2.5 MG/3 ML VIAL.NEB. INHALATION (09:22)
[2018-03-25 09:24] VITALS: PULSE 93; RESP 16; O2SAT 93
[2018-03-25] MEDS: Cyanocobalamin 500 MCG Tablet PO (09:42)
[2018-03-25] MEDS: Venlafaxine XR 75 MG Capsule PO (09:43)
[2018-03-25] MEDS: Enoxaparin 40 MG/0.4 ML Syringe SC (09:44)
[2018-03-25 11:43] VITALS: PULSE 80; RESP 16
[2018-03-25] MEDS: Acetaminophen 325 MG Tablet 650 MG PO (12:34)
--- OUTSIDE RECORDS SUMMARY | 2018-06-24 05:59 | XMS RPT_ITS ---
:1950 Author Organization [place] Support Name Relationship Address Phone HEROAmeenaORIONKAILEE Unavailable [address] + [place] [address] R Unavailable Unavailable Unavailable HEROK KAILEE Unavailable [address] + [place] [address] R Unavailable Unavailable Unavailable ORION BOOVIN Unavailable [address] + [place] [address] R Unavailable Unavailable Unavailable HEROK, KAILEE Unavailable [address] + [place] [address] R Unavailable Unavailable Unavailable HEROK, KAILEE Unavailable [address] + [place] [address] R Unavailable Unavailable Unavailable HEROK, KAILEE Unavailable [address] + [place] [address] R Unavailable Unavailable Unavailable HEROK, KAILEE Unavailable [address] + [place] [address] R Unavailable Unavailable Unavailable RAJEEV, KAILEE Unavailable [address] + [place] [address] R Unavailable Unavailable Unavailable HEROK, KAILEE Unavailable [address] + [place] [address] R Unavailable Unavailable Unavailable HEROK, KAILEE Unavailable [address] + [place] [address] R Unavailable Unavailable Unavailable HEROK, KAILEE Unavailable [address] + [place] [address] R Unavailable Unavailable Unavailable HEROK, KAILEE Unavailable [address] + [place] [address] R Unavailable Unavailable Unavailable HUSK, KAILEE Unavailable [address] + [place] [address] R Unavailable Unavailable Unavailable HUSK, KAILEE Unavailable [address] + [place] [address] R Unavailable Unavailable Unavailable D Unavailable Unavailable Unavailable HUSK, KAILEE Unavailable [address] + [place] [address] D Unavailable Unavailable Unavailable HUSK, KAILEE Unavailable [address] + [place] [address] HUSK, KAILEE Unavailable [address] + [place] [address] UE Unavailable Unavailable Unavailable HUSK, KAILEE Unavailable [address] + [place] [address] UE Unavailable Unavailable Unavailable HUSK, KAILEE Unavailable [address] + [place] [address] UE Unavailable Unavailable Unavailable HUSK, KAILEE Unavailable [address] + [place] [address] UE Unavailable Unavailable Unavailable Care Team Providers Name Role Phone EFFIE, RA Primary Care Unavailable Koram, Mitra Karlene Admitting Unavailable Salinas Parker Attending Unavailable Hiram Sifuentes D.O. Consulting Unavailable Umesh Rojo Attending Unavailable EFFIE, RA Referring Unavailable Umesh Rojo Attending Unavailable Umesh Rojo Referring Unavailable EFFIE, RA Primary Care Unavailable Shauna Sue Attending Unavailable Shauna Sue Referring Unavailable EFFIE, RA Primary Care Unavailable Shauna Sue Attending Unavailable EFFIE, RA Referring Unavailable Koram, Mitra Karlene Admitting Unavailable Hiram Sifuentes D.O. Attending Unavailable EFFIE, RA Primary Care Unavailable Hiram Sifuentes D.O. Consulting Unavailable Salinas Parker Consulting Unavailable Umesh Rojo Attending Unavailable Umesh Rojo Referring Unavailable EFFIE, RA Primary Care Unavailable Umesh Rojo Attending Unavailable EFFIE, AR Referring Unavailable EFFIE, RA Primary Care Unavailable Donnie Dawson Attending Unavailable Donnie Dawson Referring Unavailable EFFIE, RA Primary Care Unavailable Donnie Dawson Attending Unavailable EFFIE, RA Referring Unavailable EFFIE, RA Primary Care Unavailable EFFIE, RA Referring Unavailable EFFIE, RA Primary Care Unavailable Annetta Damon Attending Unavailable EFFIE, RA Attending Unavailable EFFIE, RA Referring Unavailable EFFIE, RA Primary Care Unavailable Ava Peters Attending Unavailable Dorota Salmeron Attending Unavailable EFFIE, RA Attending Unavailable EFFIE, RA Referring Unavailable EFFIE, RA Primary Care Unavailable Koram, Mitra Karlene Admitting Unavailable KitSalinas mendoza Attending Unavailable EFFIE, RA Primary Care Unavailable Hiram Sifuentes D.O. Consulting Unavailable Salinas Parker Consulting Unavailable Koram, Mitra Karlene Admitting Unavailable Hiram Sifuentes D.O. Attending Unavailable EFFIE, RA Primary Care Unavailable Hiram Sifuentes D.O. Consulting Unavailable Salinas Parker Consulting Unavailable Koram, Mitra Karlene Admitting Unavailable Salinas Parker Attending Unavailable EFFIE, RA Primary Care Unavailable Hiram Sifuentes D.O. Consulting Unavailable Salinas Parker Consulting Unavailable Koram, Mitra Karlene Admitting Unavailable Salinas Parker Attending Unavailable EFFIE, RA Primary Care Unavailable Salinas Parker Consulting Unavailable Koram, Mitra Karlene Admitting Unavailable Koram, Mitra Karlene Attending Unavailable EFFIE, RA Primary Care Unavailable Koram, Mitra Karlene Consulting Unavailable PROBLEMS PROBLEMS DATE TYPE CONDITION / CODE ATTENDING STATUS SOURCE 04/26/2018 Unknown D72.1 - Eosinophilia / Sue, Active [place] D72.1(ICD-10) [facility] Repository 12/13/2017 Unknown J45.41 - Moderate DarrelUmesh ray Active [place] persistent asthma with Community (acute) exacerbation / Hospital J45.41(ICD-10) Repository 12/13/2017 Unknown I50.32 - Chronic DarrelUmesh ray Active [place] diastolic (congestive) Community heart failure / Hospital I50.32(ICD-10) Repository 12/13/2017 Unknown J45.51 - Severe DarrelUmesh ray Active [place] persistent asthma with Community (acute) exacerbation / Hospital J45.51(ICD-10) Repository 10/14/2017 Unknown Z12.31 - Encounter for Nga Damon screening mammogram [facility] for malignant neoplasm Hospital of breast / Repository Z12.31(ICD-10) 10/12/2017 Unknown 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, 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, RA Community recurrent, mild / Hospital F33.0(ICD-10) Repository 10/12/2017 Unknown E78.2 - Mixed EFFIE, Active [place] hyperlipidemia / RA Community E78.2(ICD-10) Hospital Repository 10/12/2017 Unknown J01.40 - Acute EFFIE, Active [place] pansinusitis, RA Community unspecified / Hospital J01.40(ICD-10) Repository 10/12/2017 Unknown N18.2 - Chronic kidney EFFIE, Active [place] disease, stage 2 RA Community (mild) / N18.2(ICD-10) Hospital Repository 10/12/2017 Unknown I50.30 - Unspecified EFFIE, Active [place] diastolic (congestive) [facility] heart failure / Hospital I50.30(ICD-10) Repository 10/12/2017 Unknown M81.8 - Other EFFIE, Active [place] osteoporosis without RA Community current pathological Hospital fracture / Repository M81.8(ICD-10) 10/12/2017 Unknown J20.9 - Acute EFFIE, Active [place] bronchitis, RA Community unspecified / Hospital J20.9(ICD-10) Repository 07/15/2017 Unknown E78.1 - Pure EFFIE, Active [place] hyperglyceridemia / RA Community E78.1(ICD-10) Hospital Repository PROCEDURES PROCEDURES No Procedure Records FoundRESULTS RESULTS PULMONARY VISIT REPORT Observed: 04/26/2018 Status: F Source: MINTER 2:02 [facility] REPOSITORY [facility] Pulmonary Medicine of [address] [place] [address] OFFICE VISIT Date of Service: 04/26/18 MR#: [id number] Acct: [id number] Name: CHUCK BOO Rep #: [id number] : 1950 Provider: Shauna Sue Age/Sex: 67/F Location: [facility] Status: Signed Assessment AND Plan 1. Severe persistent asthma with exacerbation J45.51 Plan Deteriorated. Likely experiencing an additional exacerbation of her asthma. Treating with an antibiotic, will likely add prednisone if symptoms do not show improvement within 24-48 hours. Continue all maintenance medications. CBC pending today. Follow-up with Dr. Rojo in 3 weeks. 2. Eosinophilia D72.1 Plan Deteriorated. CBC does indicate that the patient does have eosinophilia, see results. Concern for Churg-Rhonda. Pursue initiation of Nucala therapy. Follow-up with Dr. Rojo in 3 weeks. Laboratory Tests WBC 8.6 Eos % (Auto) 14.2 H Orders Orders: Plan Detail Other Medications New: Discontinued: Follow Up 3 Weeks (BWA) HPI 3 M FU: Chief Complaint: Wheezing HPI Comments Details: This patient presents the office for follow-up after recently being treated in the emergency department status post hospital for an exacerbation of her asthma. She is ambulatory and currently on room air. Approximately 20 pages of hospital documentation was reviewed from the hospitalization beginning on March 22 - March 25, 2018. Chest x-ray completed on March 22 showed findings that are consistent with COPD, however no acute chest disease. She was treated with steroids and bronchodilators. She was then discharged on a prednisone taper. Today she presents to the office and states that she has been off of prednisone for almost 2 weeks. She continues to have wheezing and chest tightness. She now has a cough that is productive of yellow to green sputum. She reports shortness of breath with exertion. She also reports a rattling sound in her chest. She denies any fever, chills or body aches. She denies any chest pain or palpitations. She also denies any lower extremity edema. She is compliant with Advair twice daily, as well as Singulair daily. She is using her rescue inhaler every 4 hours. She does report rinsing her mouth out after each use of Advair. She denies any medication side effects such as sore throat or thrush. Intake Vital Signs04/26/18 Height 5 ft 3 in 04/26/18 Weight: 150 lb Intake Visit Reasons: 3 M FU DME Vendor: [employer] Accompanied by: Self Allergies codeine Allergy (Severe, Verified 04/26/18 10:43) DIFFICULTY BREATHING/THROAT SWELLING hydromorphone HCl [From Dilaudid] Allergy (Verified 04/26/18 10:43) EXTREME LETHARGY Medications Omeprazole [Prilosec] 20 mg PO QHS 02/19/16 [History Confirmed 04/26/18] cyanocobalamin (vit B-12) 500 mcg tablet 500 mcg PO DAILY 08/03/17 [History Confirmed 04/26/18] atorvastatin 20 mg tablet 20 mg PO DAILY 10/19/17 [History Confirmed 04/26/18] fluticasone 500 mcg-salmeterol 50 mcg/dose blistr powdr for inhalation 1 inh INHALATION BID 10/19/17 [History Confirmed 04/26/18] montelukast 10 mg tablet 10 mg PO QPM 01/27/18 [History Confirmed 04/26/18] Albuterol IH (ProAir) [Proair Hfa] 2 puff INHALATION Q6H PRN PRN 03/22/18 [History Confirmed 04/26/18] Cholecalciferol (Vitamin D3) [D3-2000] 2,000 unit PO DAILY 03/22/18 [History Confirmed 04/26/18] Venlafaxine XR [Effexor Xr] 75 mg PO DAILY 03/22/18 [History Confirmed 04/26/18] Vitamin E 400 units PO DAILY 03/22/18 [History Confirmed 04/26/18] Amlodipine [Norvasc] 10 mg PO DAILY #60 tab 03/25/18 [Rx Confirmed 04/26/18] Ipratropium/Albuterol Sulfate [Iprat-Albut 0.5-3(2.5) mg/3 ml] 1 vial INHALATION 4X/DAY #120 ampul.neb 03/25/18 [Rx Confirmed 04/26/18] levofloxacin 500 mg tablet 500 mg PO Q24H 5 Days #5 tab 04/26/18 [Rx Confirmed 04/26/18] PFSH Medical History Persistent asthma (Chronic) Chronic diastolic heart failure (Chronic) Palpitations (Chronic) History of hysterectomy (Resolved) HTN (hypertension) (Chronic) Cough (Acute) Dyspnea (Acute) Stage 2 chronic kidney disease (Acute) Wheezing (Acute) Surgical History Hx of hernia repair (Resolved) History of tonsillectomy (Resolved) Family History Brother CAD (coronary artery disease) Father CHF (congestive heart failure) Brother Myocardial infarction Social History Smoking Status: Never smoker Review of Systems Const CONSTITUTIONAL: Negative anorexia, body ache, chills, daytime sleepiness, fever(s), night sweats, oral thrush, stops breathing during sleep, weight loss, sleeping in chair, fatigue, weight loss, weight gain, frequent colds, seasonal allergies, other, headache(s) or orthopnea EETM Ear Nose Throat Mouth: Positive hearing normal; negative hoarseness, dry mouth in morning, change in vision, itchy eyes, eye pain, swallowing Difficulty, ear pain, headache(s), mouth pain, nasal congestion, nasal discharge, sinus pain, sinus pressure, sore throat, other, hard of hearing, nose bleed or post nasal drip Cardio Cardiovascular: Negative chest pain, chest pain at rest, chest pain with activity, irregular heart rhythm, edema, shortness of breath when lying down, palpitations, other or murmur Resp Respiratory: Positive as per HPI, shortness of breath shortness of breath: Positive with activity, chest congestion, cough cough: Positive productive color: Positive thick, yellow and green and chest tightness; negative pain with cough, wheezing, pain on inspiration, inhalers, increase use of rescue inhalers, snoring, apnea or other Gastro Gastrointestional: Negative bloody stools, change in appetite, difficulty swallowing, reflux, hematemesis, melena stool, loose stool, constipation or other Genitourinary: Negative blood in urine, nocturia, pain with urination or other Musc Musculoskeletal: Negative body pain, back pain, neck pain or other Skin/Breast Skin/Breast: Negative dry skin, itching, unusual bruising, breast lump, other or rash Neuro Neurological: Negative restless legs, confusion, weakness or other Psych Psychocological: Negative abnormal sleep pattern, anxiety, thoughts of hurting self/others, hopelessness or other Lymph Lymphatic: Negative easy bleeding, easy bruising, other or swollen lymph nodes Exam Const Constitutional: Positive cooperative, in no acute respiratory distress, healthy appearing, well developed, well nourished, good hygiene, appears older than stated age and conversant Slightly cushingoid appearance Head Head: Positive normocephalic, atraumatic and other (meyers faces); negative cyanosis of lips/distal nose, frontal sinus tenderness or maxillary sinus tenderness Eyes Eye: Positive clear conjunctiva; negative nystagmus, scleral abnormality or cataract present Ears Ear: Positive external ears normal and hearing normal; negative hard of hearing Nose Nose: Positive external nose normal and no nasal discharge; negative epistaxis Mouth Mouth: Positive oral mucosae normal, no lesions and posterior oropharynx is adequate; negative malodorous breath, oral thrush present or post nasal drip Mallampati Score: II: Mallampati Score Neck Neck: Positive normal visual inspection, full ROM and trachea midline; negative lymphadenopathy or JVD Chest Wall Chest: Positive symmetric chest movement and increased A/P diameter; negative crepitus or tenderness Resp lung sounds: Positive wheezes (Worse at the bases), prolonged expiratory time and normal chronic state of increased work of breathing; negative rhonchi, rales or use of accessory muscles Cardio Cardiac: Positive regular rate, regular rhythm, S1 normal and S2 normal; negative rub, gallop or murmur GI GI: Positive normal to inspection; negative distended, ascites or epigastric tenderness Genitourinary: Positive deferred Musc Musculoskeletal: Positive steady gait; negative using an assistive device for ambulation, kyphosis or scoliosis Skin Pulmonary Skin Exam: Positive intact and dermal atrophy; negative lesion, ulcers, erythema or rash Pulses Pulse: Yes radial pulses present Extremities Extremities: Yes capillary refill normal, No clubbing, No cyanosis, No edema, No stasis dermatitis Neuro Neurologic: Yes conversant, Yes no focal neuro deficits, Yes normal concentration, Yes understands questions, Yes cooperative, Yes normal cognition, Yes normal coordination, No tremor Lymph Lymphatic: No lymphadenopathy, No tenderness, No cervical adenopathy Psych Appearance: Positive grossly normal, well kempt and eye contact Mental Status: Positive mental status grossly normal Mood: Positive congruent mood Affect: Positive normal affect Coding Level of Care Code Off vis,est,level 4 Diagnoses Severe persistent asthma with exacerbation J45.51 Asthma severity: severe Asthma persistence: persistent Eosinophilia D72.1 04/26/18 1402 <Electronically signed by Shauna ALARCON> Date Shauna ALARCON Cosigner Signature: Date (if applicable) CC: Ra Simms MD CBC W/DIFF, AUTOMATED Collected: 04/26/2018 Status: F Source: [place] 11:37 AM [facility] REPOSITORY TYPE CODE TESTS RESULT OUT OF RANGE REFERENCE UNITS LAB L100.1000 4.4-11.0 K/mm3 Normal WBC 8.6 LAB L100.1200 4.2-5.4 M/mm3 Normal RBC 4.60 LAB L100.1300 12.0-15.0 g/dl Normal HGB 14.2 LAB L100.1400 37-47 % Normal HCT 42.4 LAB L100.1500 81-99 fL Normal MCV 92.2 LAB L100.1600 27.0-32.0 pg Normal MCH 30.9 LAB L100.1700 32-36 g/gl Normal MCHC 33.5 LAB L100.1810 11.6-14.6 % Normal RDW CV 13.6 LAB L100.1820 35.1-43.9 fl High RDW SD 44.9 LAB L100.1900 150-450 K/mm3 Normal PLT 348 LAB L100.2000 6.2-12.0 fl Normal MPV 9.7 LAB L100.2100 47-70 % Normal NEUT% 48.1 LAB L100.2200 19-41 % Normal LY% 27.4 LAB L100.2300 0-10 % Normal MONO% 8.2 LAB L100.2400 0-5 % High EO% 14.2 LAB L100.2500 0-1 % High BASO% 1.5 LAB L100.2550 0.0-0.9 % Normal IM GRAN % 0.600 Result Comment: IG% - Immature Granulocytes (promyelocytes, myelocytes and metamyelocytes) > 1% indicates that a LEFT SHIFT is Present. LAB L100.2620 2.0-7.7 X10 3/uL Normal Absolute Neut 4.1 LAB L100.2720 0.83-4.51 X10 3/ul Normal Absolute Lymph 2.34 Performed By: #### L100.0100 #### [facility] [place], [address] 12 LEAD ELECTROCARDIOGRAM Observed: 03/25/2018 Status: F Source: [place] 1:43 PM [facility] REPOSITORY [facility] Cardiovascular Services [address] [place] [address] 12 Lead EKG 03/22/18 1750 MR#: [id number] Acct: [id number] Name: CHUCK BOO R Rep #: [id number] : 1950 67 From: Andrade Arellano MD Attending Dr: Salinas Parker MD Status: DIS ANGELITO Ordering Dr: Chay Goode MD Date: 03/22/18 [place] [facility] [place]: F C Admitted: 03/22/18 Test Reason : Blood Pressure : / mmHG Vent. Rate : 090 BPM Atrial Rate : 090 BPM P-R Int : 138 ms QRS Dur : 074 ms QT Int : 364 ms P-R-T Axes : 073 070 087 degrees QTc Int : 445 ms Normal sinus rhythm Nonspecific ST abnormality Abnormal ECG Confirmed by ANDRADE ARELLANO MD ([id number]), editor index SUNDEEP DEVRIES ([id number]) on 03/25/2018 1:43:31 PM Referred By: Confirmed By:ANDRADE ARELLANO MD 03/25/18 1343 Date Andrade Arellano MD CC: Salinas Parker MD; Ra Simms MD; Chay Goode MD Signed DISCHARGE SUMMARY Observed: 03/25/2018 Status: F Source: [place] 8:16 AM [facility] REPOSITORY [facility] Medical Records Department [address] [place] [address] Discharge Summary 03/25/18 0812 MR#: [id number] Acct: [id number] Name: CHUCK BOO R Rep #: [id number] : 1950 67 From: Salinas Parker MD PCP: Ra Simms MD Status: ADM ANGELITO Y Location: MS2 IR302-2 Discharge Date and Diagnosis - Problem List Patient Problems: Active and Suspected Problems (Last Reviewed 01/27/18 @ 06:42 by Irma Davidson) Asthma exacerbation (Acute) Date of Admission: 03/22/18 Date of Discharge: 03/25/18 - Primary Discharge Diagnosis Active and Suspected Problems (Last Reviewed 01/27/18 @ 06:42 by Irma Davidson) Asthma exacerbation (Acute) - Secondary Discharge Diagnosis Chronic Problems (Last Reviewed 01/27/18 @ 06:42 by Irma Davidson) Hypersomnia (Chronic) Persistent asthma (Chronic) Chronic diastolic heart failure (Chronic) Palpitations (Chronic) HTN (hypertension) (Chronic) Hospital Course and Treatment Imaging Results: Clinical Impression(s) from Imaging Studies Chest X-Ray 03/22/18 17:37 IMPRESSION: There are findings consistent with COPD. There is no evidence of acute chest disease. Electronically Signed: Kong Kapadia MD at 18:47 EST , Service support , Operations: herniorrhaphy Summary of Care Provided: Patient is a 70-year-old lady with history of great intermittent asthma who presented with a 5-day history of cough nasal congestion as well as shortness of breath. Patient had apparently used her home treatment regimen without much improvement. Presented to the emergency department and assessment of acute asthma exacerbation made admitted to a monitored bed for further management 1. Acute asthma exacerbation possibly preceded by an upper respiratory tract infection possibly viral. Patient respiratory panel however came back negative admitted to regular nursing floor managed with systemic steroid as well as aerosol treatment. With patient remaining persistently bronchospastic consultation was placed to pulmonary medicine patient has been seen by Dr. Sifuentes. Notes from Dr. Sifuentes reviewed. Was discharged home with tapering dose of prednisone she was also instructed to get rid of hear pets including chickens and cats and possibly dog 2. Severe persistent asthma patient is being considered for Biologics (immunotherapy) as outpatient 3. Hypertension-blood pressure controlled, home medications continued with dose adjustment as needed 4. Dyslipidemia-patient is on statin therapy, continued at home dose 5. Depression with anxiety patient is on Effexor and trazodone 6. Chronic migraine headache with exacerbation treated with Toradol 7. DVT prophylaxis SC Lovenox Patient Problems: Active and Suspected Problems (Last Reviewed 01/27/18 @ 06:42 by Irma Davidson) Asthma exacerbation (Acute) Objective: GENERAL: cooperative HEENT: Atraumatic; moist oral mucosa EYES; Anicteric, Normal Conjunctiva NECK; supple, normal thyroid, no distended JVD. RESPIRATORY: Diminished to auscultation bilaterally, bilateral wheezes CARDIOVASCULAR: Regular S1 S2, no audible murmurs GI: soft, non-tender, normoactive bowel sounds, : No Renal angle tenderness; EXTREMITIES: No edema, no clubbing, no cyanosis. MUSCULOSKELETAL: No Joint Tenderness; no muscle waisting NEURO: Awake; no lateralizing signs. SKIN: No Rash PSYCH; Normal affect - Physical Exam Vital Signs Temp Pulse Resp BP Pulse Ox 98.2 F 80 16 131/62 H 94 03/25/18 02:20 03/25/18 02:20 03/25/18 02:20 03/25/18 02:20 03/25/18 02:20 Oxygen Flow Rate (L/min) 3 Oxygen Delivery Method Room Air Weight: 68.8 kg Body Mass Index (BMI) 26.9 Intake and Output for Last 24 Hours Intake Total 3265 / 3265 1900 / 1900 600 / 600 Balance 3265 / 3265 1900 / 1900 600 / 600 Microbiology Past 72 Hours 03/22/18 23:30 Respiratory Panel (PCR) - Final Mucosa - Nasopharyngeal Laboratory Tests Past 24 Hrs Urine Color Straw Urine Clarity Clear Discharge Diet: No Restrictions Discharge Activity: Return to Normal Activity Home Medications: Medications to take at Discharge Omeprazole [Prilosec] 20 mg PO QHS 05/24/15 cyanocobalamin (vit B-12) 500 mcg tablet 500 mcg PO DAILY 08/03/17 atorvastatin 20 mg tablet 20 mg PO DAILY 10/19/17 fluticasone 500 mcg-salmeterol 50 mcg/dose blistr powdr for inhalation 1 inh INHALATION BID 10/19/17 montelukast 10 mg tablet 10 mg PO QPM 01/27/18 Albuterol IH (ProAir) [Proair Hfa] 2 puff INHALATION Q6H PRN PRN 03/22/18 Cholecalciferol (Vitamin D3) [D3-2000] 2,000 unit PO DAILY 03/22/18 Venlafaxine XR [Effexor Xr] 75 mg PO DAILY 03/22/18 Vitamin E 400 units PO DAILY 03/22/18 traZODone [Desyrel] 100 mg PO QHS 03/22/18 Amlodipine [Norvasc] 10 mg PO DAILY #60 tablet 03/25/18 Ipratropium/Albuterol Sulfate [Iprat-Albut 0.5-3(2.5) mg/3 ml] 1 vial INHALATION 4X/DAY #120 ampul.neb 03/25/18 Prednisone 10 mg PO UD #32 tablet 03/25/18 Following Prescrptions Were Given to Patient: Amlodipine [Norvasc] 10 mg PO DAILY #60 tablet Ipratropium/Albuterol Sulfate [Iprat-Albut 0.5-3(2.5) mg/3 ml] 1 vial INHALATION 4X/DAY #120 ampul.neb Prednisone 10 mg PO UD #32 tablet Primary Care Physician: Ra Simms MD [Primary Care Provider] - Please follow up with your Primary Care Physician in: in 5- 7 days Please Follow Up With: Umesh Rojo MD When: in 1-2n weeks Disposition: Home Minutes spent on discharge:: 25 Patient Condition:: Stable Medical Necessity - Tobacco Use Smoking Status: Never smoker Meaningful Use Info Meaningful Use Diagnoses (Choose all that apply): None applicable Code Visit OBSV E AND M: 08003 Observation care discharge 03/25/18 0816 <Electronically signed by Salinas Parker MD> Date Salinas Parker MD Cosigner Signature (if applicable): Date CC: Salinas Parker MD; Ra Simms MD Signed DISCHARGE INSTRUCTION Observed: 03/25/2018 Status: F Source: [place] 8:12 AM [facility] REPOSITORY [facility] Medical Records Department [address] [place] [address] Instructions for Home/Discharge Instructions 03/25/18 0810 MR#: [id number] Acct: [id number] Name: CHUCK BOO Rep #: [id number] : 1950 67 From: Salinas Parker MD PCP: Ra Simms MD Status: ADM ANGELITO You will use the following diet at home:: No restrictions Allergies/Adverse Reactions: Allergies codeine Allergy (Severe, Verified 03/22/18 21:42) DIFFICULTY BREATHING/THROAT SWELLING nausea/swelling of mouth hydromorphone HCl [From Dilaudid] Allergy (Verified 03/22/18 21:42) EXTREME LETHARGY Medications to take at Discharge Omeprazole [Prilosec] 20 mg PO QHS 05/24/15 cyanocobalamin (vit B-12) 500 mcg tablet 500 mcg PO DAILY 08/03/17 atorvastatin 20 mg tablet 20 mg PO DAILY 10/19/17 fluticasone 500 mcg-salmeterol 50 mcg/dose blistr powdr for inhalation 1 inh INHALATION BID 10/19/17 montelukast 10 mg tablet 10 mg PO QPM 01/27/18 Albuterol IH (ProAir) [Proair Hfa] 2 puff INHALATION Q6H PRN PRN 03/22/18 Cholecalciferol (Vitamin D3) [D3-2000] 2,000 unit PO DAILY 03/22/18 Venlafaxine XR [Effexor Xr] 75 mg PO DAILY 03/22/18 Vitamin E 400 units PO DAILY 03/22/18 traZODone [Desyrel] 100 mg PO QHS 03/22/18 Amlodipine [Norvasc] 10 mg PO DAILY #60 tablet 03/25/18 Ipratropium/Albuterol Sulfate [Iprat-Albut 0.5-3(2.5) mg/3 ml] 1 vial INHALATION 4X/DAY #120 ampul.neb 03/25/18 Prednisone 10 mg PO UD #32 tablet 03/25/18 The following prescriptions were given: Amlodipine [Norvasc] 10 mg PO DAILY #60 tablet Ipratropium/Albuterol Sulfate [Iprat-Albut 0.5-3(2.5) mg/3 ml] 1 vial INHALATION 4X/DAY #120 ampul.neb Prednisone 10 mg PO UD #32 tablet Primary Care Physician: Ra Simms MD [Primary Care Provider] - Please follow up with your Primary Care Physician in: in 5- 7 days Test Results: Test results from this visit will be discussed in further detail at your follow-up appointment, if applicable. Please Follow Up With: Umesh Rojo MD When: in 1-2n weeks Proposed Discharge Date: 03/25/18 03/25/18811 <Electronically signed by Salinas Parker MD> Date Salinas Parker MD CC: Hiram Sifuentes D.O.; Ra Simms MD CONSULTATION Observed: 03/24/2018 Status: F Source: MINTER 2:43 PM [facility] REPOSITORY [facility] Medical Records Department [address] [place] [address] Consultation 03/24/18 1432 MR#: [id number] Acct: [id number] Name: CHUCK BOO Rep #: [id number] : 1950 67 From: Hiram Sifuentes DO PCP: Ra Simms MD Status: ADM ANGELITO Y Location: [address] Reason for Consult Date of Consultation: 03/24/18 Reason for Consultation: Asthma exacerbation History of Present Illness: The patient is a 67-year-old female, with a history as outlined below, who initially presented to the emergency department on March 22 with worsening shortness of breath and cough. She has a known history of severe persistent asthma along with eosinophilia and currently follows with Dr. Rojo in the pulmonary medicine clinic. She was last seen by him at the end of January, at which time, the decision was made to proceed with qualifying the patient for Nucala, as the patient is currently on maximal asthma therapy. She has a history of recurrent exacerbations. She does report that she previously had allergy testing done which did reveal a significant response to both cat and dog dander. However, the patient does report that she does currently keep 1 cat and 2 dogs as pets in her home environment. She does have peripheral eosinophilia along with an elevated IgE level to 74. The patient reports that her insurance company is requiring an additional blood draw to document continued eosinophilia prior to approval of Nucala. However, in order to accomplish this, the patient needs to be off of steroids. The patient's presenting plain film chest x-ray revealed no acute cardiopulmonary process. Respiratory viral panel was negative. To date, the patient has been treated symptomatically with scheduled bronchodilators, Singulair and prednisone. She is improving slowly with time. I spoke to her at length today regarding the need to consider getting rid of her animals and/or having family members care for them while the patient recovers, as they are a known trigger for her. She ideally needs to be off of steroids for a period of time prior to her lab work being drawn, in order to qualify her for Nucala. Past Medical History Past Medical History (Chronic Problems): Chronic Problems (Last Reviewed 01/27/18 @ 06:42 by Irma Davidson) Hypersomnia (Chronic) Persistent asthma (Chronic) Chronic diastolic heart failure (Chronic) Palpitations (Chronic) HTN (hypertension) (Chronic) Medical History: Medical History (Last Reviewed 01/27/18 @ 06:42 by Irma Davidson) Persistent asthma (Chronic) J45.909 Chronic diastolic heart failure (Chronic) I50.32 Palpitations (Chronic) R00.2 History of hysterectomy (Resolved) Z90.710 HTN (hypertension) (Chronic) I10 Cough R05 Dyspnea R06.00 Stage 2 chronic kidney disease N18.2 Wheezing R06.2 Allergies codeine Allergy (Severe, Verified 03/22/18 21:42) DIFFICULTY BREATHING/THROAT SWELLING nausea/swelling of mouth hydromorphone HCl [From Dilaudid] Allergy (Verified 03/22/18 21:42) EXTREME LETHARGY Home Medications: Ambulatory Orders Medication Instructions Recorded Amlodipine/Benazepril [Lotrel 5-20 1 cap PO QHS 06/29/14 Surgical History: Surgical History (Last Reviewed 01/27/18 @ 06:42 by Irma Davidson) Hx of hernia repair (Resolved) Z98.890, Z87.19 History of tonsillectomy (Resolved) Z90.89 Surgical History: noncontributory Lives: Spouse/ Significant Other Smoking Status: Never smoker Alcohol: None - *Family History Maternal Family History: Family History (Last Reviewed 01/27/18 @ 06:42 by Irma Davidson) Brother CAD (coronary artery disease) Father CHF (congestive heart failure) Brother Myocardial infarction History Items: No pertinent history Paternal Family History: Family History (Last Reviewed 01/27/18 @ 06:42 by Irma Davidson) Brother CAD (coronary artery disease) Father CHF (congestive heart failure) Brother Myocardial infarction History Items: Heart Disease Review of Systems Constitutional: Denies: Chills, Fever Eyes: Denies: Blurred vision, Double vision HEENT: Denies: Head Aches, Sinus Congestion, Sinus Drainage Cardiovascular: Denies: Chest Pain, Palpitations Respiratory: Reports: Cough, Shortness of Breath, Wheezing Gastrointestinal: Denies: Abdominal Pain, Nausea, Vomiting Genitourinary: Denies: Dysuria Musculoskeletal: Denies: Joint Pain, Joint Tenderness Skin: Denies: Rash, Wounds Neurological: Denies: Numbness, Tingling, Focal weakness Psychiatric: Denies: Anxiety, Depression, Homicidal Ideations, Suicidal Ideations Hematologic/ Lymphatic: Denies: Easy Bruising, Easy Bleeding Objective: The patient's most recent lab work, culture data and imaging studies have all been personally reviewed. - Physical Exam General: Alert, Oriented x3, Cooperative, No apparent distress HEENT: Atraumatic, PERRLA, Normocephalic Oral: No Gingival or Mucosal Lesions/ Ulcerations Neck: Supple, No Nodes, Trachea Midline Lungs: Wheezes, - - Speaking in complete sentences. No accessory muscle use. Cardiovascular: Regular rate, Regular Rhythm, Normal S1, Normal S2, No murmurs Abdomen: Bowel Sounds Present, Soft, Non Tender, Non-Distended Extremities: No clubbing, No cyanosis, No edema Skin: No rashes, No breakdown Musculoskeletal: No Tenderness to Palpation of Joints or Extremities, No Muscle Wasting Lymphatic: No Cervical, Supraclavicular, or Inguinal Adenopathy Neurological: Cranial nerves II-XII grossly intact, Neuro grossly intact Psych/Mental Status: Alert and oriented to time, place, person, mood and affect Vital Signs Temp Pulse Resp BP Pulse Ox 36.4 C L 84 16 145/70 H 97 03/24/18 14:10 03/24/18 14:28 03/24/18 14:28 03/24/18 14:10 03/24/18 14:10 Oxygen Flow Rate (L/min) 3 Oxygen Delivery Method Room Air Weight: 151 lb 10.848 oz Body Mass Index (BMI) 26.9 Intake and Output for Last 24 Hours Intake Total 3265 / 3265 1100 / 1100 Balance 3265 / 3265 1100 / 1100 Microbiology Past 72 Hours 03/22/18 23:30 Respiratory Panel (PCR) - Final Mucosa - Nasopharyngeal Laboratory Tests Past 24 Hrs Urine Color Straw Urine Clarity Clear Clinical Impression(s) from Imaging Studies Chest X-Ray 03/22/18 17:37 IMPRESSION: There are findings consistent with COPD. There is no evidence of acute chest disease. Electronically Signed: Kong Kapadia MD at 18:47 EST , Service support , Assessment/Plan All Active Problems (Last Reviewed 01/27/18 @ 06:42 by Irma Davidson) Eosinophilia (Acute) Hx of hernia repair (Resolved) History of hysterectomy (Resolved) History of tonsillectomy (Resolved) Hernia of abdominal cavity, with obstruction (Acute) Lactic acidosis (Resolved) Respiratory failure with hypoxia and hypercapnia (Resolved) RECOMMENDATIONS: 1. Continue scheduled bronchodilators. 2. Continue IV steroids yet today, with plans to transition to prednisone beginning tomorrow. 3. Recommend prolonged steroid taper at discharge. 4. Discussed avoidance of known triggers with the patient, including the animals that she currently keeps as pets in her home environment. IMPRESSIONS: 1. Severe persistent asthma with frequent exacerbations The patient has a history of severe persistent asthma with frequent exacerbations. She is being followed longitudinally in the pulmonary medicine clinic by Dr. Rojo. At her last office visit, the decision was made to pursue adding Nucala to the patient's already maximized asthma regimen. However, the patients insurance is requiring an additional blood draw, which I assume was a CBC with differential, to document ongoing eosinophilia. However, the patient's eosinophil counts are strongly influenced by the administration of corticosteroids. She reports that at her last office visit, Dr. Rojo indicated that he would like for her to be off of steroids for 30 days prior to getting her blood drawn. The patient has yet to be able to do this, as she keeps experiencing exacerbations. However, she readily admits that she has a known allergy to both cat and dog dander, both of which she keeps his pets in her home environment. Therefore, I did discuss with her about the possibility of either getting rid of her pets or having family members care for them while she recovers. In the interim, I would not change your current management. 2. Hypertension/hyperlipidemia/depression/anxiety Complicates care, management, recovery and prognosis. Continue home medications as indicated. This note was generated with [employer] software. It may contain incorrect words, spelling, and punctuation that were not noted in checking the note before signing. Code Visit Inpatient E AND M: 21441 Init Hosp L2 03/24/18 1443 <Electronically signed by Hiram Sifuentes DO> Date Hiram Sifuentes DO Cosigner Signature (if applicable): Date CC: Hiram Sifuentes D.O.; Ra Simms MD Signed URINALYSIS, COMPLETE Collected: 03/24/2018 Status: F Source: TRISTAN 8:45 AM [facility] REPOSITORY Order Comment: How was Urine Obtained? [employer] CONSULTANT TO SPECIFY TYPE CODE TESTS RESULT OUT OF RANGE REFERENCE UNITS LAB L400.3000 Yellow COLOR Normal Straw LAB L400.3050 Clear Normal CLARITY Clear LAB L400.3200 Normal mg/dl Normal GLUCOSE, UR Normal LAB L400.3300 Negative mg/dL Normal BILIRUBIN URINE Negative LAB L400.3400 Negative mg/dl Normal KETONE UR Negative LAB L400.3465 1.002-1.030 Normal SP.GR. DIPSTX 1.010 LAB L400.3550 5.0 - 8.0 pH UR Normal 6.5 LAB L400.3600 Negative mg/dl PROT Normal DIPSTX Negative LAB L400.3700 Normal mg/dl Normal UROBILI Normal LAB L400.3750 Negative Normal NITRITE UR Negative LAB L400.3780 Negative /ul Normal OCCULT BLOOD-UR Negative LAB L400.3800 Negative /ul LEUK Normal ESTERASE Negative LAB L400.4050 0-5 /hpf WBC 0 Normal SEEN LAB L400.4100 0-5 /hpf 0 Normal RBC-UA SEEN LAB L400.4150 5-10 /hpf SQUAM Normal EPI 0-5 SEEN LAB L400.4300 None Seen /hpf Normal BACTERIA RARE LAB L400.4350 <or=2+ /hpf 0 Normal MUCUS, URINE SEEN Performed By: #### L400.0001 #### [facility] [address] [place], [address] Observed: 03/24/2018 Status: F Source: MINTER CULTURE, URINE 8:45 AM [facility] REPOSITORY Urine Culture ORGANISM 1: Mixed Gram Pos AND Gram Neg Org [place] Count 1000-10,000 MIX CULTURE Mixed contaminants. Submit a new specimen if indicated. Performed By: #### M100.0650 #### [facility] [address] [place], [address] CBC W/DIFF, AUTOMATED Collected: 03/23/2018 Status: F Source: MINTER 7:45 AM [facility] REPOSITORY TYPE CODE TESTS RESULT OUT OF RANGE REFERENCE UNITS LAB L100.1000 4.4-11.0 K/mm3 Normal WBC 9.4 LAB L100.1200 4.2-5.4 M/mm3 Low RBC 4.02 LAB L100.1300 12.0-15.0 g/dl Normal HGB 12.3 LAB L100.1400 37-47 % Normal HCT 37.7 LAB L100.1500 81-99 fL Normal MCV 93.8 LAB L100.1600 27.0-32.0 pg Normal MCH 30.6 LAB L100.1700 32-36 g/gl Normal MCHC 32.6 LAB L100.1810 11.6-14.6 % Normal RDW CV 13.0 LAB L100.1820 35.1-43.9 fl Normal RDW SD 43.2 LAB L100.1900 150-450 K/mm3 Normal PLT 272 LAB L100.2000 6.2-12.0 fl Normal MPV 10.3 LAB L100.2100 47-70 % High NEUT% 88.6 LAB L100.2200 19-41 % Low LY% 7.2 LAB L100.2300 0-10 % Normal MONO% 2.8 LAB L100.2400 0-5 % Normal EO% 0.1 LAB L100.2500 0-1 % Normal BASO% 0.3 LAB L100.2550 0.0-0.9 % High IM GRAN % 1.000 Result Comment: IG% - Immature Granulocytes (promyelocytes, myelocytes and metamyelocytes) > 1% indicates that a LEFT SHIFT is Present. LAB L100.2620 2.0-7.7 X10 3/uL High Absolute Neut 8.4 LAB L100.2720 0.83-4.51 X10 3/ul Low Absolute Lymph 0.68 Performed By: #### L100.0100 #### [facility] [address] [place], [address] BASIC METABOLIC Collected: 03/23/2018 Status: F Source: MINTER PROFILE ([facility]) 7:45 AM [facility] REPOSITORY TYPE CODE TESTS RESULT OUT OF RANGE REFERENCE UNITS LAB L501.0100 74-106 mg/dL High GLU 168 Result Comment: Fasting Glucose result greater than or equal to 126 mg/dL suggests DIABETES MELLITUS per A.D.A. criteria. Please note revised GLUCOSE reference range effective 2017. LAB L501.1000 7-18 mg/dL Normal BUN 11 LAB L501.1100 0.55-1.02 mg/dL Normal CREAT,SERUM 0.89 Result Comment: The validity of the calculated GFR AND GFRAA in patients over 70 years has not been determined. Clinical correlation is essential. LAB L501.1110 >60 mL/min Normal EST GFR 67 Result Comment: Non- GFR Calc LAB L501.1115 >60 mL/min Normal EST GFR - AA 82 Result Comment: GFR Calc LAB L501.1255 ml/min Normal Estimated CRCL 50.74 LAB L501.1300 10-20 RATIO Normal BUN/CRE 12.4 LAB L501.2200 8.5-10 mg/dL Normal .1 CA 8.5 LAB L501.5300 136-14 mmol/L Normal 5 NA 139 LAB L501.5600 3.5-5. mmol/L Normal 1 K 4.1 LAB L501.5900 98-107 mmol/L Normal CL 107 LAB L501.6100 21.0-3 mmol/L Normal 2.0 CO2 23.0 LAB L501.6200 5-15 Normal GAP 9 Performed By: #### L500.2500 #### [facility] [address] [place], [address] HISTORY AND PHYSICAL Observed: 03/23/2018 Status: F Source: MINTER EXAM 1:44 AM [facility] REPOSITORY [facility] Medical Records Department [address] [place] [address] History and Physical 03/22/182028 MR#: [id number] Acct: [id number] Name: CHUCK BOO Rep #: [id number] : 1950 67 From: Mitra Augustin MD PCP: Ra Simms MD Status: ADM ANGELITO Y Location: [place] [address] History of Present Illness Date of Admission: 03/22/18 Chief Complaint: cough, worsening shortness of breath The patient is a 67 year old F with past medical history of hypertension and asthma. She was admitted through the ED on 03/22/2018 with complaint of worsening shortness of breath and a cough for 5 days duration. She denies being around any person with upper respiratory tract symptoms. Symptoms started with congestion and rhinorrhea and subsequently she developed a cough which is mildly productive of scanty yellowish sputum. She admitted to some occasional chills and states shortness of breath and wheezing have been worsening associated with coming to the ED. She denied any assisted anorexia, palpitations, dizziness or lightheadedness, abdominal pain, diarrhea vomiting. Review of systems otherwise negative. In the ED, labs are unremarkable and vitals were significant for tachycardia and tachypnea.. She was given a breathing treatment and felt better but with ambulation, shortness of breath worsened and her breathing went up to 28 breaths/min. She is never been admitted to manage for asthma exacerbation. [] Past Medical History Past Medical History (Chronic Problems): Chronic Problems (Last Reviewed 01/27/18 @ 06:42 by Irma Davidson) Hypersomnia (Chronic) Persistent asthma (Chronic) Chronic diastolic heart failure (Chronic) Palpitations (Chronic) HTN (hypertension) (Chronic) Medical History: Medical History (Last Reviewed 01/27/18 @ 06:42 by Irma Davidson) Persistent asthma (Chronic) J45.909 Chronic diastolic heart failure (Chronic) I50.32 Palpitations (Chronic) R00.2 History of hysterectomy (Resolved) Z90.710 HTN (hypertension) (Chronic) I10 Cough R05 Dyspnea R06.00 Stage 2 chronic kidney disease N18.2 Wheezing R06.2 Allergies codeine Allergy (Severe, Verified 03/22/18 17:04) DIFFICULTY BREATHING/THROAT SWELLING nausea/swelling of mouth hydromorphone HCl [From Dilaudid] Allergy (Verified 03/22/18 17:04) EXTREME LETHARGY Home Medications: Ambulatory Orders Medication Instructions Recorded Amlodipine/Benazepril [Lotrel 5-20 1 cap PO QHS 06/29/14 Surgical History: Surgical History (Last Reviewed 01/27/18 @ 06:42 by Irma Davidson) Hx of hernia repair (Resolved) Z98.890, Z87.19 History of tonsillectomy (Resolved) Z90.89 Surgical History: noncontributory Lives: Spouse/ Significant Other Smoking Status: Never smoker Alcohol: None - *Family History Maternal Family History: Family History (Last Reviewed 01/27/18 @ 06:42 by Irma Davidson) Brother CAD (coronary artery disease) Father CHF (congestive heart failure) Brother Myocardial infarction History Items: No pertinent history Paternal Family History: Family History (Last Reviewed 01/27/18 @ 06:42 by Irma Davidson) Brother CAD (coronary artery disease) Father CHF (congestive heart failure) Brother Myocardial infarction History Items: Heart Disease Review of Systems Constitutional: Reports: Chills. Denies: Anorexia, Fever, Malaise, Weakness, Weight Change, Fatigue Eyes: Denies: Blurred vision HEENT: Denies: Head Aches, Sinus Congestion, Sinus Drainage Cardiovascular: Denies: Chest Pain, Palpitations Respiratory: Reports: Cough, Shortness of Breath, Shortness of breath at rest, Shortness of breath upon exertion, Sputum production, Wheezing. Denies: Pleuritic Pain Gastrointestinal: Denies: Abdominal Pain, Nausea, Vomiting Genitourinary: Denies: Dysuria Musculoskeletal: Denies: Joint Pain, Joint Tenderness Skin: Denies: Rash, Wounds Neurological: Denies: Numbness, Tingling, Focal weakness Psychiatric: Denies: Anxiety, Depression, Homicidal Ideations, Suicidal Ideations Hematologic/ Lymphatic: Denies: Easy Bruising, Easy Bleeding VTE Information - Inpt Only VTE Present on Admission: No VTE Pharm Prophylaxis ordered?: Yes - Physical Exam General: Alert, Oriented x3, Cooperative, No apparent distress HEENT: Atraumatic, PERRLA, EOMI, Normocephalic Oral: Moist Mucosa Neck: Supple, No JVD, Negative Carotid Bruits Lungs: Short of Breath, - - Has coarse rhonchi and wheezing in all lung parada bilaterally. No crackles auscultated. Cardiovascular: Regular Rhythm, Normal S1, Normal S2, No murmurs, Tachycardic Abdomen: Bowel Sounds Present, Soft, Non Tender, Non-Distended, No Hepato-splenomegaly Extremities: No clubbing, No cyanosis, No edema, Capillary Refill Less than 3 Seconds Skin: No rashes, No breakdown Musculoskeletal: No Tenderness to Palpation of Joints or Extremities Lymphatic: No Cervical, Supraclavicular, or Inguinal Adenopathy Neurological: Cranial nerves II-XII grossly intact Psych/Mental Status: Normal Affect, Appropriate, Alert and oriented to time, place, person, mood and affect Vital Signs Temp Pulse Resp BP Pulse Ox 98.4 F 105 H 20 H 154/82 H 95 03/22/18 17:32 03/22/18 19:40 03/22/18 19:40 03/22/18 17:32 03/22/18 17:32 Oxygen Delivery Method Room Air Weight: 151 lb 10.848 oz Body Mass Index (BMI) 26.9 Laboratory Tests Past 24 Hrs WBC 9.9 RBC 4.52 Hgb 14.0 Hct 42.0 MCV 92.9 MCH 31.0 MCHC 33.3 RDW 13.1 RDW Differential 44.6 H Diagnostic Data Chest X-Ray 03/22/18 17:37 IMPRESSION: There are findings consistent with COPD. There is no evidence of acute chest disease. Electronically Signed: Kong Kapadia MD at 18:47 EST , Service support , Assessment/Plan All Active Problems (Last Reviewed 01/27/18 @ 06:42 by Irma Davidson) Eosinophilia (Acute) Hx of hernia repair (Resolved) History of hysterectomy (Resolved) History of tonsillectomy (Resolved) Hernia of abdominal cavity, with obstruction (Acute) Lactic acidosis (Resolved) Respiratory failure with hypoxia and hypercapnia (Resolved) 70-year-old female admitted with a 5-day history of rhinorrhea, nasal congestion, cough and shortness of breath. 1. Asthma exacerbation due to URTI * has coarse rhonchi and wheezing in all lung parada * CXR showed no acute infiltrate * admit to [facility] with telemetry * breathing treatments with duonebs * check respiratory panel * IV solumedrol 40mg q8 * oxygen prn to maintain sats >92% * Continue montelukast and fluticasone salmeterol. 2. Hypertension: On amlodipine and benazepril. Will continue. 3. Hyperlipidemia: On atorvastatin. 4. Depression: On Effexor and trazodone DVT prophylaxis: Lovenox Code status: full code * Patient counseled extensively about different types of CODE STATUS including full code, DNR CCA and DNR CCA. Patient elects to be full code. Total [id number] time 17 minutes. Code Visit OBSV E AND M: 11133 Initial observation care L3 Procedures: 43739 Advncd Care Plan 30 Min 03/23/18 0144 <Electronically signed by Mitra Augustin MD> Date Mitra Augustin MD Cosigner Signature: Date (if applicable) CC: Ra Simms MD; Mitra Augustin MD Signed EMERGENCY DEPARTMENT Observed: 03/22/2018 Status: F Source: MINTER SUMMARY 11:31 PM [facility] REPOSITORY [facility] Medical Records Department [address] [place] [address] Emergency Department Summary 03/22/18 1906 MR#: [id number] Acct: [id number] Name: CHUCK BOO Rep #: [id number] : 1950 67 From: Chay Goode MD PCP: Ra Simms MD Status: ADM ANGELITO - ER Visit Summary Date of Service: 03/22/18 Chief Complaint: Shortness of breath History of Present Illness: The patient is a 67 F presents to the emergency department shortness of breath. Patient has a history of asthma. She is not on oxygen at home. She states that over the past 5 days, she has had worsening shortness of breath. She has been using her nebulizers every 4 hours with no improvement. She had scant cough but no productive sputum. She denies any fevers or chills. She denies any chest pain. Patient does not smoke. She states that she did start taking prednisone 2 days ago with little improvement. She has no history of pulmonary embolus. Physical Examination: Vital signs reviewed General: Well-nourished, well-developed Head: Normocephalic, atraumatic Eyes: Pupils equal and reactive, extraocular muscles intact Neck, supple, no lymphadenopathy Heart: Regular rate and rhythm Respiratory: No distress, diminished with wheezing throughout Abdomen: Soft, nontender, nondistended, no peritoneal signs Back: Nontender Extremities: Nontender, no edema, no cords Skin: Normal color no rash Neuro: Alert and oriented, no focal or lateralizing deficits Test Results: [] Emergency Department Course and Treatment: The patient presents with shortness of breath. EKG does not show any acute ischemia. The patient was given nebulized breathing treatments and steroids. Her x-ray shows no evidence of volume overload. There is no cardiomegaly. Screening labs are unremarkable. On reevaluation, the patient still has persistent bronchospasm. She was ambulated and was not hypoxic, but still had tachypnea at a rate of 30. At this time, I do feel the patient is to require admission for continued nebulized breathing treatments and steroids. Patient was discussed with the hospitalist. She will be admitted at this time. Treatment Plan: [] Disposition: Admission Impression: 1. Acute asthma exacerbation This note was generated with Nuvyyo dictation software. It may contain incorrect words, spelling, and punctuation that were not noted in review of the chart prior to signing ED Disposition - Plan for ED Patient: Disposition: Acute Care [facility] Chief Complaint: Cold Sx What to do if you have Problems For any increased pain, shortness of breath, bleeding, nausea or vomiting, chest pain, or any unexpected problems, contact your Primary Care Provider. Call [facility] ([phone]) or report to the closest Emergency Room. Call 911 if necessary. 03/22/18 2331 <Electronically signed by Chay Goode MD> Date Chay Goode MD Cosigner Signature (If Indicated): Date CC: Ra Simms MD Observed: 03/22/2018 Status: F Source: MINTER RESPIRATORY PANEL 11:30 PM [facility] MOLECULAR REPOSITORY RP PANEL ADENOVIRUS Not Detected HUMAN METAPHNEUMO Not Detected INFLUENZA A Not Detected INFLUENZA A (SUBTYPE H1) Not Detected INFLUENZA A (SUBTYPE H3) Not Detected INFLUENZA B Not Detected PARAINFLUENZA 1 Not Detected PARAINFLUENZA 2 Not Detected PARAINFLUENZA 3 Not Detected PARAINFLUENZA 4 Not Detected RHINOVIRUS Not Detected RSV A Not Detected RSV B Not Detected NAAT METHOD Testing was performed using nucleic acid amplification Performed By: #### M100.638 #### [facility] [address] [place], [address] CBC W/DIFF, AUTOMATED Collected: 03/22/2018 Status: F Source: MINTER 6:19 PM [facility] REPOSITORY TYPE CODE TESTS RESULT OUT OF RANGE REFERENCE UNITS LAB L100.1000 4.4-11.0 K/mm3 Normal WBC 9.9 LAB L100.1200 4.2-5.4 M/mm3 Normal RBC 4.52 LAB L100.1300 12.0-15.0 g/dl Normal HGB 14.0 LAB L100.1400 37-47 % Normal HCT 42.0 LAB L100.1500 81-99 fL Normal MCV 92.9 LAB L100.1600 27.0-32.0 pg Normal MCH 31.0 LAB L100.1700 32-36 g/gl Normal MCHC 33.3 LAB L100.1810 11.6-14.6 % Normal RDW CV 13.1 LAB L100.1820 35.1-43.9 fl High RDW SD 44.6 LAB L100.1900 150-450 K/mm3 Normal PLT 294 LAB L100.2000 6.2-12.0 fl Normal MPV 9.9 LAB L100.2100 47-70 % Normal NEUT% 52.0 LAB L100.2200 19-41 % Normal LY% 26.5 LAB L100.2300 0-10 % Normal MONO% 7.4 LAB L100.2400 0-5 % High EO% 12.5 LAB L100.2500 0-1 % High BASO% 1.2 LAB L100.2550 0.0-0.9 % Normal IM GRAN % 0.400 Result Comment: IG% - Immature Granulocytes (promyelocytes, myelocytes and metamyelocytes) > 1% indicates that a LEFT SHIFT is Present. LAB L100.2620 2.0-7.7 X10 3/uL Normal Absolute Neut 5.2 LAB L100.2720 0.83-4.51 X10 3/ul Normal Absolute Lymph 2.62 Performed By: #### L100.0100 #### [facility] [address] [place], [address] BASIC METABOLIC Collected: 03/22/2018 Status: F Source: MINTER PROFILE ([facility]) 6:19 PM [facility] REPOSITORY TYPE CODE TESTS RESULT OUT OF RANGE REFERENCE UNITS LAB L501.0100 74-106 mg/dL High GLU 110 Result Comment: Fasting Glucose result from 100 to 125 mg/dL suggests IMPAIRED HOMEOSTASIS per A.D.A. criteria. Please note revised GLUCOSE reference range effective 2017. LAB L501.1000 7-18 mg/dL Normal BUN 14 LAB L501.1100 0.55-1.02 mg/dL Normal CREAT,SERUM 0.98 Result Comment: The validity of the calculated GFR AND GFRAA in patients over 70 years has not been determined. Clinical correlation is essential. LAB L501.1110 >60 mL/min Normal EST GFR 61 Result Comment: Non- GFR Calc LAB L501.1115 >60 mL/min Normal EST GFR - AA 73 Result Comment: GFR Calc LAB L501.1255 ml/min Normal Estimated CRCL 46.08 LAB L501.1300 10-20 RATIO Normal BUN/CRE 14.4 LAB L501.2200 8.5-10 mg/dL Normal .1 CA 9.1 LAB L501.5300 136-14 mmol/L Normal 5 NA 142 LAB L501.5600 3.5-5. mmol/L Normal 1 K 3.9 Result Comment: Slight Hemolysis, Result may be falsely increased. LAB L501.5900 98-107 mmol/L Normal CL 104 LAB L501.6100 21.0-32.0 mmol/L Normal CO2 28.0 LAB L501.6200 5-15 Normal GAP 10 Performed By: #### L500.2500, L501.4010 #### [facility] [address] [facility] [place], [address] TROPONIN-I Collected: 03/22/2018 Status: F Source: MINTER 6:19 PM [facility] REPOSITORY TYPE CODE TESTS RESULT OUT OF RANGE REFERENCE UNITS LAB L501.4010 <0.045 ng/mL Normal < 0.015 TROPONIN-I Result Comment: TROPONIN-I EXPECTED VALUES <0.045 Negative 0.045 - 0.590 Consistent with Cardiac Damage > OR = 0.600 Critical Value Not every elevated troponin is indicative of CT. These values should be used with clinical judgement in examining the patient's clinical picture for diagnosis. To establish a diagnosis of CT versus myocardial injury, there must be a demonstrated rise and/or fall in the troponin values, in addition to ischemic symptoms, EKG changes, new regional wall motion abnormality, and/or angiographical evidence. PLEASE NOTE: REFERENCE RANGES EDITED 17 Performed By: #### L500.2500, L501.4010 #### [facility] [address] [facility] [place], [address] CHEST PA AND LATERAL Observed: 03/22/2018 Status: F Source: MINTER 5:39 PM [facility] REPOSITORY [facility] Imaging Services [address] [place] [address] Chest PA and Lateral MR#: [id number] Acct: [id number] Name: CHUCK BOO Ila Rep #: [id number] : 1950 F 67 From: Kong Kapadia MD PCP: Ra Simms MD Status: REG ER Study: Chest PA and Lateral Date of Exam: 03/22/18 Exam# [id number] Ordering Dr: Chay Goode MD STUDY: X-RAY CHEST REASON FOR EXAM: Female, 67 years old. Congestion and cough. TECHNIQUE: Frontal and lateral views of the chest. COMPARISON: 10/12/2017. FINDINGS: There is hyperinflation of the lungs consistent with chronic obstructive lung disease (COPD). No infiltrates or effusions. There is no demonstrated pleural abnormality. Normal size heart. Normal mediastinum and jt. Normal visualized pulmonary arteries. Normal visualized aortic arch and descending thoracic aorta. There are diffuse degenerative changes of the visualized thoracic spine. Stable mild compression fracture of the lower thoracic spine. Normal visualized ribs, clavicles, and shoulders. There is no demonstrated abnormality of the visualized soft tissue structures of the upper abdomen. RAD/Chest PA and Lateral IMPRESSION: There are findings consistent with COPD. There is no evidence of acute chest disease. Electronically Signed: Kong Kapadia MD at 18:47 EST , Service support , CC: Ra Simms MD; Chay Goode MD Environmental Protection Inspector: Signed PULMONARY VISIT REPORT Observed: 01/27/2018 Status: F Source: MINTER 10:26 AM [facility] REPOSITORY [facility] [address] [place] [address] OFFICE VISIT Date of Service: 01/27/18 MR#: [id number] Acct: [id number] Name: CHUCK BOO Rep #: [id number] : 1950 Provider: Umesh Rojo MD Age/Sex: 67/F Location: [facility] Status: Signed Assessment AND Plan Problems 1. Severe persistent asthma without complication J45.50 2. Eosinophilia D72.1 Plan Patient with severe persistent asthma requiring multiple doses of prednisone in addition to maximal inhaled corticosteroids. Eosinophil count is noted to be 496 on last CBC. Discussed with patient about immunotherapy. After review of the risks, benefits and alternatives, patient is open to investigating Nucala as an option. Patient is very concerned about the potential cost. Application will be completed. Initiate Nucala. Continue current medications. Medications Discontinued: Plan Detail Follow Up 3 Months ([facility]) HPI 6 wk FU: Chief Complaint: Shortness of breath Details: Patient is a 67-year-old female, currently the care of Dr. Simms, who presents for evaluation secondary to shortness of breath. Since last visit, patient denies any ER visits or hospitalizations. Patient was placed on prednisone approximately 2 weeks ago secondary to an asthma exacerbation. Patient is not reporting any sinus issues, but states her dyspnea on exertion is worse with the colder weather. Patient continues to wheeze on a daily basis. Patient's primary care physician did initiate Singulair therapy, but patient has not noticed any significant change. Patient denies any current chest pain, abdominal pain, nausea or vomiting. No bleeding complications have been reported. Patient reports she has been compliant with her Advair therapy. Patient denies any thrush, but feels that her throat moffett all the time. Patient has been using Pro Air up to 4 times per day. Patient continues to have a dry cough. Testing personally reviewed with the patient Laboratory workup (12/13/2017): WBC count of 6.2 with 8% eosinophils. BMP normal at 20.7. IgE normal at 74. Imaging personally reviewed with the patient CT chest (12/23/2017): No focal infiltrate with minimal right middle lobe atelectasis and a small hiatal hernia. Radiology did not comment on bronchiectasis HPI Comments Details: Intake Vital Signs01/27/18 Height 5 ft 3 in 01/27/18 Weight: 68.492 kg Intake Visit Reasons: 6 wk FU [employer] Required: No Accompanied by: Self Is patient in pain?: No Allergies codeine Allergy (Severe, Verified 01/27/18 06:42) DIFFICULTY BREATHING/THROAT SWELLING hydromorphone HCl [From Dilaudid] Allergy (Verified 01/27/18 06:42) EXTREME LETHARGY Medications Amlodipine/Benazepril [Lotrel 5-20 MG Capsule] 1 cap PO QHS 06/29/14 [History Confirmed 01/27/18] Omeprazole [Prilosec] 20 mg PO QHS 05/24/15 [History Confirmed 01/27/18] cholecalciferol (vitamin D3) 2,000 unit tablet 2,000 unit PO QDAY 08/03/17 [History Confirmed 01/27/18] cyanocobalamin (vit B-12) 500 mcg tablet 500 mcg PO QDAY 08/03/17 [History Confirmed 01/27/18] trazodone 100 mg tablet 100 mg PO QHS 08/03/17 [History Confirmed 01/27/18] vitamin E (dl, acetate) 400 unit capsule 400 unit PO QDAY 08/03/17 [History Confirmed 01/27/18] albuterol sulfate HFA 90 mcg/actuation aerosol inhaler 2 puff INHALATION Q6H PRN 10/19/17 [History Confirmed 01/27/18] atorvastatin 20 mg tablet 20 mg PO QDAY 10/19/17 [History Confirmed 01/27/18] fluticasone 500 mcg-salmeterol 50 mcg/dose blistr powdr for inhalation 1 inh INHALATION BID 10/19/17 [History Confirmed 01/27/18] venlafaxine 75 mg tablet 75 mg PO BID 10/19/17 [History Confirmed 01/27/18] montelukast 10 mg tablet 10 mg PO QPM 01/27/18 [History Confirmed 01/27/18] PFSH Medical History Persistent asthma (Chronic) Chronic diastolic heart failure (Chronic) Palpitations (Chronic) History of hysterectomy (Resolved) HTN (hypertension) (Chronic) Cough (Acute) Dyspnea (Acute) Stage 2 chronic kidney disease (Acute) Wheezing (Acute) Surgical History Hx of hernia repair (Resolved) History of tonsillectomy (Resolved) Family History Brother CAD (coronary artery disease) Father CHF (congestive heart failure) Brother Myocardial infarction Social History Smoking Status: Never smoker Review of Systems Const CONSTITUTIONAL: Positive fatigue; negative anorexia, body ache, chills, daytime sleepiness, fever(s), night sweats, oral thrush, stops breathing during sleep, weight loss, sleeping in chair, weight loss, weight gain, frequent colds, seasonal allergies, other, headache(s) or orthopnea EETM Ear Nose Throat Mouth: Positive hearing normal; negative hoarseness, dry mouth in morning, change in vision, itchy eyes, eye pain, swallowing Difficulty, ear pain, headache(s), mouth pain, nasal congestion, nasal discharge, sinus pain, sinus pressure, sore throat, other, hard of hearing, nose bleed or post nasal drip Cardio Cardiovascular: Negative chest pain, chest pain at rest, chest pain with activity, irregular heart rhythm, edema, shortness of breath when lying down, palpitations, other or murmur Resp Respiratory: Positive as per HPI, shortness of breath shortness of breath: Positive with activity, cough cough: Positive non-productive, chest tightness and inhalers; negative pain with cough, wheezing, chest congestion, pain on inspiration, increase use of rescue inhalers, snoring, apnea or other Gastro Gastrointestional: Negative bloody stools, change in appetite, difficulty swallowing, reflux, hematemesis, melena stool, loose stool, constipation or other Genitourinary: Negative blood in urine, nocturia, pain with urination or other Musc Musculoskeletal: Negative body pain, back pain, neck pain or other Skin/Breast Skin/Breast: Negative dry skin, itching, unusual bruising, breast lump, other or rash Neuro Neurological: Negative restless legs, confusion, weakness or other Psych Psychocological: Negative abnormal sleep pattern, anxiety, thoughts of hurting self/others, hopelessness or other Lymph Lymphatic: Negative easy bleeding, easy bruising, swollen lymph nodes or other Exam Const Constitutional: Positive cooperative, in no acute respiratory distress, healthy appearing, well developed, well nourished, good hygiene, appears older than stated age and conversant Slightly cushingoid appearance Head Head: Positive normocephalic and atraumatic; negative cyanosis of lips/distal nose, frontal sinus tenderness or maxillary sinus tenderness Eyes Eye: Positive clear conjunctiva; negative nystagmus, scleral abnormality or cataract present Ears Ear: Positive external ears normal and hearing normal; negative hard of hearing Nose Nose: Positive external nose normal, septum normal and no nasal discharge; negative nasal polyp or epistaxis Mouth Mouth: Positive oral mucosae normal, no lesions and posterior oropharynx is adequate; negative malodorous breath, oral thrush present or post nasal drip Mallampati Score: II: Mallampati Score Neck Neck: Positive normal visual inspection, full ROM and trachea midline; negative lymphadenopathy or JVD Chest Wall Chest: Positive symmetric chest movement and increased A/P diameter; negative crepitus or tenderness Resp lung sounds: Positive wheezes (Worse at the bases), prolonged expiratory time and normal chronic state of increased work of breathing; negative rhonchi, rales or use of accessory muscles Cardio Cardiac: Positive regular rate, regular rhythm, S1 normal and S2 normal; negative rub, gallop or murmur GI GI: Positive normal to inspection and normal bowel sounds; negative distended, ascites or epigastric tenderness Genitourinary: Positive deferred Musc Musculoskeletal: Positive steady gait; negative using an assistive device for ambulation, kyphosis or scoliosis Skin Pulmonary Skin Exam: Positive intact and dermal atrophy; negative lesion, ulcers, erythema or rash Pulses Pulse: Yes radial pulses present Extremities Extremities: Yes capillary refill normal, No clubbing, No cyanosis, No edema, No stasis dermatitis Neuro Neurologic: Yes no focal neuro deficits, Yes normal concentration, Yes understands questions, Yes cooperative, Yes normal cognition, Yes normal coordination, Yes conversant Lymph Lymphatic: No lymphadenopathy Psych Appearance: Positive grossly normal Mental Status: Positive mental status grossly normal Mood: Positive congruent mood Affect: Positive normal affect Coding Level of Care Code Off vis,est,level 4 Diagnoses Severe persistent asthma without complication J45.50 Asthma severity: severe Asthma complication type: uncomplicated Eosinophilia D72.1 01/27/18 1026 <Electronically signed by Umesh Rojo MD> Date Umesh Rojo MD Cosigner Signature: Date (if applicable) CC: Ra Simms MD CHEST WITHOUT Observed: 12/23/2017 Status: F Source: TRISTAN CONTRAST 3:08 PM [facility] REPOSITORY [facility] Imaging Services [address] [place] [address] Chest without Contrast MR#: [id number] Acct: [id number] Name: HEROAmeenaCHUCK R Rep #: [id number] : 1950 F 66 From: Gertrude Mattson MD PCP: Ra Simms MD Status: REG CLI Study: Chest without Contrast Date of Exam: 12/23/17 Exam# [id number] Ordering Dr: Umesh Rojo MD STUDY: CT CHEST WITHOUT CONTRAST REASON FOR EXAM: Female, 66 years old. Wheezing cough asthma RADIATION DOSAGE (If Supplied By Facility): CTDIvol = ( 12.81 ) mGy, DLP = ( 475.52 ) mGycm TECHNIQUE: Transaxial imaging was performed without the administration of intravenous contrast material. Multiplanar coronal and sagittal images were reformatted. Individualized dose optimization techniques were used for this CT. COMPARISON: October 2017 chest x-ray FINDINGS: There is a trace amount of right middle lobe atelectasis. There is no visualized focal consolidation or pleural effusion. There is no demonstrated pleural abnormality. Normal heart and pericardium. Normal mediastinum. Normal hilar regions. Normal unenhanced pulmonary arteries. There is minimal calcification of the aorta. Normal osseous structures. Ms. Heider hernia measuring 2.[address]/Chest without Contrast IMPRESSION: No visualized acute focal infiltrate. Minimal right middle lobe atelectasis. Small hiatal hernia. Electronically Signed: Gertrude Mattson MD at 15:30 EDT Tel , Service support , CC: Umesh Rojo MD; Ra Simms MD Environmental Protection Inspector: Signed PULMONARY VISIT REPORT Observed: 12/13/2017 Status: F Source: MINTER 12:18 PM [facility] REPOSITORY [facility] [address] [place] [address] OFFICE VISIT Date of Service: 12/13/17 MR#: [id number] Acct: [id number] Name: CHUCK BOO Rep #: [id number] : 1950 Provider: Umesh Rojo MD Age/Sex: 66/F Location: [facility] Status: Signed Assessment AND Plan Problems 1. Severe persistent asthma with acute exacerbation J45.51 2. Chronic diastolic heart failure I50.32 Plan Unclear reason for significant worsening in overall condition. However, patient would qualify for severe persistent asthma given current symptoms and recurrent prednisone bursts. Last pulmonary function tests in September 2015 were consistent with asthma. Will obtain an IgE, Aspergillus antibodies and CBC for evaluation of possible Biologics moving forward. We will also obtain a CT scan of the chest for evaluation of possible bronchiectasis as pulmonary toileting may improve overall condition. Patient did have a history of diastolic dysfunction in the past, but no lower extremity swelling is noted at this time. Will obtain a BNP. Patient should have a sputum culture prior to any further antibiotic therapy. Obtain BNP, IgE, CBC, aspergillus antibodies, HRCT. Obtain sputum culture prior to any antibiotic therapy Orders Orders: Plan Detail Follow Up 4-6 weeks ([facility]) HPI cough: Chief Complaint: Frequent exacerbations Details: Patient is a 66-year-old female, currently under care of Dr. Simms, who presents for evaluation secondary to recurrent exacerbations. Patient was last seen in March, but has since been lost to follow-up. Patient states in the interim she has been treated with 5-6 episodes of prednisone therapy in addition to increasing her Advair to 500/50. Patient denies any hospitalizations, but estimates that she has been on steroids every 3-4 weeks over the summer. Patient has noted increased allergic type symptoms with sinus congestion, sneezing and watery eyes. Patient is currently taking cetirizine, Flonase and Singulair with little improvement. Patient does report a cough productive of clear to yellow sputum on a daily basis. This is not associated with fever, chills, nausea or vomiting. Patient denies any chest pain. Patient does report her skin is very thin and she bleeds easily, but she attributes this to her prednisone therapy. Patient estimates her last round of antibiotics was approximately 3 weeks ago and did improve her overall condition. Documentation reviewed Complete PFT (September 23, 2015): Fully reversible mild large airways obstructive ventilatory defect (FVC 84%, FEV1 85%, TLC 83%, DLCO of 69%) Echocardiogram (October 01, 2015): EF 65% with stage I diastolic dysfunction. No RVSP. Intake Vital Signs12/13/17 Height 5 ft 3 in 12/13/17 Weight: 68.946 kg Intake Visit Reasons: cough Accompanied by: Self Allergies codeine Allergy (Severe, Verified 12/13/17 10:57) DIFFICULTY BREATHING/THROAT SWELLING hydromorphone HCl [From Dilaudid] Allergy (Verified 12/13/17 10:57) EXTREME LETHARGY Medications Amlodipine/Benazepril [Lotrel 5-20 MG Capsule] 1 cap PO QHS 06/29/14 [History Confirmed 12/13/17] Omeprazole [Prilosec] 20 mg PO QHS 05/24/15 [History Confirmed 12/13/17] cholecalciferol (vitamin D3) 2,000 unit tablet 2,000 unit PO QDAY 08/03/17 [History Confirmed 12/13/17] cyanocobalamin (vit B-12) 500 mcg tablet 500 mcg PO QDAY 08/03/17 [History Confirmed 12/13/17] trazodone 100 mg tablet 100 mg PO QHS 08/03/17 [History Confirmed 12/13/17] vitamin E (dl, acetate) 400 unit capsule 400 unit PO QDAY 08/03/17 [History Confirmed 12/13/17] albuterol sulfate HFA 90 mcg/actuation aerosol inhaler 2 puff INHALATION Q6H PRN 10/19/17 [History Confirmed 12/13/17] atorvastatin 20 mg tablet 20 mg PO QDAY 10/19/17 [History Confirmed 12/13/17] fluticasone 500 mcg-salmeterol 50 mcg/dose blistr powdr for inhalation 1 inh INHALATION BID 10/19/17 [History Confirmed 12/13/17] venlafaxine 75 mg tablet 75 mg PO BID 10/19/17 [History Confirmed 12/13/17] PFSH Medical History Persistent asthma (Chronic) Chronic diastolic heart failure (Chronic) Palpitations (Chronic) COPD (chronic obstructive pulmonary disease) (Chronic) HTN (hypertension) (Chronic) Cough (Acute) Dyspnea (Acute) Stage 2 chronic kidney disease (Acute) Wheezing (Acute) Surgical History Hx of hernia repair (Resolved) History of hysterectomy (Resolved) History of tonsillectomy (Resolved) Family History Brother CAD (coronary artery disease) Father CHF (congestive heart failure) Brother Myocardial infarction Social History Smoking Status: Never smoker Review of Systems Const CONSTITUTIONAL: Positive headache(s); negative anorexia, body ache, chills, daytime sleepiness, fever(s), night sweats, oral thrush, stops breathing during sleep, weight loss, sleeping in chair, fatigue, weight loss, weight gain, frequent colds, seasonal allergies, other or orthopnea EETM Ear Nose Throat Mouth: Positive hearing normal, headache(s), nasal congestion and nasal discharge; negative hard of hearing, hoarseness, dry mouth in morning, change in vision, itchy eyes, eye pain, swallowing Difficulty, ear pain, nose bleed, mouth pain, post nasal drip, sinus pain, sinus pressure, sore throat or other Cardio Cardiovascular: Negative chest pain, chest pain at rest, chest pain with activity, irregular heart rhythm, edema, palpitations, murmur, other or shortness of breath when lying down Resp Respiratory: Positive as per HPI, shortness of breath, wheezing and cough cough: Positive productive color: Positive thick and yellow; negative pain with cough, chest congestion, chest tightness, pain on inspiration, inhalers, increase use of rescue inhalers, snoring, apnea or other Gastro Gastrointestional: Negative bloody stools, change in appetite, difficulty swallowing, reflux, hematemesis, melena stool, loose stool, constipation or other Genitourinary: Negative blood in urine, nocturia, pain with urination or other Musc Musculoskeletal: Negative body pain, back pain, neck pain or other Skin/Breast Skin/Breast: Negative dry skin, itching, rash, unusual bruising, breast lump or other Neuro Neurological: Negative restless legs, confusion, weakness or other Psych Psychocological: Negative abnormal sleep pattern, anxiety, thoughts of hurting self/others, hopelessness or other Lymph Lymphatic: Negative easy bleeding, easy bruising, swollen lymph nodes or other Exam Const Constitutional: Positive conversant, cooperative, in no acute respiratory distress, well developed, well nourished, good hygiene and appears older than stated age; negative wearing supplemental oxygen Cushingoid type appearance Head Head: Positive normocephalic and atraumatic; negative cyanosis of lips/distal nose, frontal sinus tenderness or maxillary sinus tenderness Eyes Eye: Positive clear conjunctiva; negative nystagmus, scleral abnormality or cataract present Ears Ear: Positive hearing normal and external ears normal; negative hard of hearing Nose Nose: Positive external nose normal, septum normal and clear nasal discharge; negative epistaxis or nasal polyp Mouth Mouth: Positive oral mucosae normal, no lesions and crowded posterior oropharynx; negative post nasal drip, malodorous breath or oral thrush present Mallampati Score: III: Mallampati Score Neck Neck: Positive normal visual inspection, full ROM and trachea midline; negative lymphadenopathy or JVD Chest Wall Chest: Positive normal inspection of the chest and symmetric chest movement; negative crepitus or tenderness Resp lung sounds: Positive clear to auscultation, wheezes, diminished and prolonged expiratory time; negative rhonchi, rales, use of accessory muscles or dullness to percussion Cardio Cardiac: Positive regular rate, regular rhythm, S1 normal and S2 normal; negative murmur, rub or gallop GI GI: Positive normal to inspection and normal bowel sounds; negative distended, ascites or epigastric tenderness Genitourinary: Positive deferred Musc Musculoskeletal: Positive steady gait; negative using an assistive device for ambulation, kyphosis, scoliosis or lordosis Skin Pulmonary Skin Exam: Positive intact, dermal atrophy and scaly; negative rash, lesion or ulcers Pulses Pulse: Yes radial pulses present Extremities Extremities: Yes capillary refill normal, No clubbing, No cyanosis, No edema Neuro Neurologic: Yes conversant, Yes no focal neuro deficits, Yes normal concentration, Yes understands questions, Yes cooperative, Yes normal coordination, Yes normal cognition Lymph Lymphatic: No lymphadenopathy Psych Appearance: Positive grossly normal Mental Status: Positive mental status grossly normal Mood: Positive congruent mood Affect: Positive normal affect Coding Level of Care Code Off vis,est,level 5 Diagnoses Severe persistent asthma with acute exacerbation J45.51 Asthma severity: severe Asthma complication type: with acute exacerbation Chronic diastolic heart failure I50.32 12/13/17 1218 <Electronically signed by Umesh Rojo MD> Date Umesh Rojo MD Cosigner Signature: Date (if applicable) CC: Ra Simms MD CBC W/DIFF, AUTOMATED Collected: 12/13/2017 Status: F Source: [facility] 11:36 AM [facility] REPOSITORY TYPE CODE TESTS RESULT OUT OF RANGE REFERENCE UNITS LAB L100.1000 4.4-11.0 K/mm3 Normal WBC 6.2 LAB L100.1200 4.2-5.4 M/mm3 Normal RBC 4.23 LAB L100.1300 12.0-15.0 g/dl Normal HGB 13.1 LAB L100.1400 37-47 % Normal HCT 39.4 LAB L100.1500 81-99 fL Normal MCV 93.1 LAB L100.1600 27.0-32.0 pg Normal MCH 31.0 LAB L100.1700 32-36 g/gl Normal MCHC 33.2 LAB L100.1810 11.6-14.6 % Normal RDW CV 14.1 LAB L100.1820 35.1-43.9 fl High RDW SD 47.8 LAB L100.1900 150-450 K/mm3 Normal PLT 231 LAB L100.2000 6.2-12.0 fl Normal MPV 9.7 LAB L100.2100 47-70 % Low NEUT% 46.6 LAB L100.2200 19-41 % Normal LY% 33.2 LAB L100.2300 0-10 % High MONO% 10.7 LAB L100.2400 0-5 % High EO% 8.0 LAB L100.2500 0-1 % Normal BASO% 1.0 LAB L100.2550 0.0-0.9 % Normal IM GRAN % 0.500 Result Comment: IG% - Immature Granulocytes (promyelocytes, myelocytes and metamyelocytes) > 1% indicates that a LEFT SHIFT is Present. LAB L100.2620 2.0-7.7 X10 3/uL Normal Absolute Neut 2.9 LAB L100.2720 0.83-4.51 X10 3/ul Normal Absolute Lymph 2.07 Performed By: #### L100.0100, L503.6620 #### [facility] [address] [place], [address] BNP,B-TYPE NATRIURETIC Collected: 12/13/2017 Status: F Source: TRISTAN PEPTIDE 11:36 AM [facility] REPOSITORY TYPE CODE TESTS RESULT OUT OF RANGE REFERENCE UNITS LAB L503.6620 0-100 pg/mL Normal B-TYPE 20.7 OUSMANE PEP Performed By: #### L100.0100, L503.20 #### [facility] [address] [place], [address] IMMUNOGLOBULIN E Collected: 12/13/2017 Status: F Source: TRISTAN 11:36 AM [facility] REPOSITORY TYPE CODE TESTS RESULT OUT OF RANGE REFERENCE UNITS LAB L3200.1600 0-100 IU/mL Normal IMMUNO E 74 Result Comment: Performed at: [facility] [id number] Credit Control Officer: Ross Rees MD, Phone: [phone] Performed By: #### L3200.1600, L3500.3600 #### [facility] (refer to report for specific site) refer to report for address and phone number ASPERGILLUS ANTIBODIES Collected: 12/13/2017 Status: F Source: [facility] 11:36 AM [facility] REPOSITORY TYPE CODE TESTS RESULT OUT OF RANGE REFERENCE UNITS LAB L3500.3700 Neg:<1:1 Asp. Normal fumigatus Negative LAB L3500.3800 Neg:<1:1 Asp. Normal flavus Negative LAB L3500.3900 Neg:<1:1 Asp. Normal niger Negative Performed By: #### L3200.1600, L3500.3600 #### [facility] (refer to report for specific site) refer to report for address and phone number SURGERY VISIT REPORT Observed: 10/27/2017 Status: F Source: TRISTAN 7:59 AM [facility] REPOSITORY [facility] [address] [place] [address] OFFICE VISIT Date of Service: 10/19/17 MR#: [id number] Acct: [id number] Name: CHUCK BOO Rep #: [id number] : 1950 Provider: Donnie Dawson MD Age/Sex: 66/F Location: [facility] Status: Signed Intake Vital Signs10/19/17 Height 5 ft 3 in 10/19/17 Weight: 146 lb 3 oz 10/19/17 Body Mass Index (BMI) 25.9 10/19/17 Blood Pressure 143/75 Intake Visit Reasons: Schedule Cscope Chief Complaint: screening colonoscopy [employer] Required: No Is patient in pain?: No Allergies codeine Allergy (Severe, Verified 10/19/17 11:06) DIFFICULTY BREATHING/THROAT SWELLING hydromorphone HCl [From Dilaudid] Allergy (Verified 10/19/17 11:06) EXTREME LETHARGY Medications Amlodipine/Benazepril [Lotrel 5-20 MG Capsule] 1 cap PO QHS 06/29/14 [History Confirmed 10/19/17] Omeprazole [Prilosec] 20 mg PO QHS 05/24/15 [History Confirmed 10/19/17] cholecalciferol (vitamin D3) 2,000 unit tablet 2,000 unit PO QDAY 08/03/17 [History Confirmed 10/19/17] cyanocobalamin (vit B-12) 500 mcg tablet 500 mcg PO QDAY 08/03/17 [History Confirmed 10/19/17] trazodone 100 mg tablet 100 mg PO QHS 08/03/17 [History Confirmed 10/19/17] vitamin E (dl, acetate) 400 unit capsule 400 unit PO QDAY 08/03/17 [History Confirmed 10/19/17] albuterol sulfate HFA 90 mcg/actuation aerosol inhaler 2 puff INHALATION Q6H PRN 10/19/17 [History Confirmed 10/19/17] atorvastatin 20 mg tablet 20 mg PO QDAY 10/19/17 [History Confirmed 10/19/17] fluticasone 500 mcg-salmeterol 50 mcg/dose blistr powdr for inhalation 1 inh INHALATION BID 10/19/17 [History Confirmed 10/19/17] venlafaxine 75 mg tablet 75 mg PO BID 10/19/17 [History Confirmed 10/19/17] Is last menstrual period known: No Post menopausal: Yes Patient : No PFSH Medical History Persistent asthma (Chronic) Chronic diastolic heart failure (Chronic) Palpitations (Chronic) COPD (chronic obstructive pulmonary disease) (Chronic) HTN (hypertension) (Chronic) Cough (Acute) Dyspnea (Acute) Stage 2 chronic kidney disease (Acute) Wheezing (Acute) Surgical History Hx of hernia repair (Resolved) History of hysterectomy (Resolved) History of tonsillectomy (Resolved) Family History Brother CAD (coronary artery disease) Father CHF (congestive heart failure) Brother Myocardial infarction Social History Smoking Status: Never smoker HPI HPI HPI: CHUCK BOO, is a 66 F who presents to the office today for evaluation for colonoscopy. Patient has a family history of colonic polyps her mother had them she did not have colon cancer herself. She had a colonoscopy approximately 10 years ago but no biopsies were done this was performed in [facility] in the year 1999. She has not noticed any change in her bowel or bladder habits ROS General General: Yes weight change; no appetite, fatigue, colon cancer, breast cancer or weakness HEENT HEENT: No difficulty swallowing, eye injury, eye surgery, swollen glands or hoarseness Endo Endocrine: No thyroid disease, diabetes mellitus, thyroid cancer, Hair loss, heat intolerance or cold intolerance Musc Musculoskeletal: Yes back problems; no arthritis, rheumatoid arthritis, gout or joint pain Cardio Cardiovascular: Yes high blood pressure; no murmur, pacemaker, heart disease, atrial fibrillation, heart attack, heart stent, palpitations, shortness of breat with exertion or chest pain Psych Psychiatric: Yes depression and anxiety; no hearing voices Resp Respiratory: Yes shortness of breath, Yes sleep apnea, Yes cough, No COPD, Yes asthma, No emphysema, No wheezing Gastro Gastrointestinal: No abdominal pain, No nausea or vomiting, No diarrhea, Yes constipation, No blood in stool, Yes acid reflux, Yes hemorrhoids, No ulcers, No gallbladder problem, No black,tarry stools Toby Hematologic: No blood thinners, No blood disorders, No bleeding, No anemia, No blood clots Neuro Neurologic: No weakness Exam Const General: well developed, no acute distress, well hydrated Orientation: oriented to person, oriented to place, oriented to time [facility] Head: normocephalic, atraumatic Ears: external ears normal Mouth: moist mucous membranes Eyes Sclera: sclerae normal Pupils: normal by confrontation Neck Neck: no lymphadenopathy noted Neck mass: No Thyroid: symmetrical, thyroid normal Chest Chest palpation AND inspection: normal inspection of the chest Resp Effort AND Inspection: normal respiratory effort Auscultation: clear to auscultation bilaterally Percussion: percussion normal Cardio Rate: regular rate Rhythm: regular rhythm Heart Sounds: no murmurs GI Palpation: soft, no masses, no hepatosplenomegaly, nontender Rectal Exam: other Other: Rectal exam deferred. Extrem General: no clubbing, cyanosis or edema, normal to inspection Assessment AND Plan Problems 1. Screening for colon cancer Z12.11 2. Family history of colonic polyps Z83.71 Plan I have discussed the above with the patient. I have offered the patient colonoscopy for evaluation. I have explained the risks/benefits of the procedure and described the procedure. I have discussed the risks with the patient, including but not limited to: infection, bleeding, perforation of the GI tract requiring emergency surgery, inability to complete the procedure, injury to any internal organs, complications of anesthesia, etc. - the patient understands and agrees to proceed. I have answered all the patient's questions to the patient's satisfaction and the patient has no further questions. The patient has been given instructions for the colon cleansing preparation. Medications Discontinued: oxycodone-acetaminophen 5-325 mg Discontin1 tab PO Q6H PRN PRN Mod/Severe (pain scale ued Reason: Pt no longer taking 6-10) Coding Level of Care Code Off vis,new,level 3 Diagnoses Screening for colon cancer Z12.11 Family history of colonic polyps Z83.71 10/27/17 0759 <Electronically signed by Donnie Dawson MD> Date Donnie Dawson MD Cosigner Signature: Date (if applicable) CC: Ra Simms MD SCREENING MAMM (CAD), Observed: 10/14/2017 Status: F Source: TRISTAN LÓPEZ 10:13 AM [facility] REPOSITORY [facility] Imaging Services [address] [place] [address] SCREENING MAMM (CAD), BILAT MR#: [id number] Acct: [id number] Name: CHUCK BOO Rep #: [id number] : 1950 F 66 From: Thomas Arvizu MD PCP: Ra Simms MD Status: REG CLI Study: SCREENING MAMM (CAD), BILAT Date of Exam: 10/14/17 Exam# [id number] Ordering Dr: Ra Simms MD MAMMOGRAPHY - BILATERAL SCREENING REASON FOR EXAM: Female, 66 years old. Routine annual screening examination. PERTINENT HISTORY: Non-contributory. TECHNIQUE: Digital bilateral breast june (3D mammographic acquisition) in the CC and MLO projections. 2-D mediolateral oblique (MLO) and craniocaudad (CC) views of both breasts were obtained. CAD: Full Field Digital Mammography with Computer Added Detection was performed. COMPARISON: Comparison is made with prior chest examination dated September 07, 2016. FINDINGS: Breast Composition: The breasts are heterogeneously dense, which may obscure small masses. There are no dominant masses or suspicious calcifications. No other significant abnormalities are identified. There has been no significant change since the prior study. BI/SCREENING MAMM (CAD), BILAT IMPRESSION: Stable bilateral screening mammogram. Yearly follow-up mammogram recommended. (A) ASSESSMENT CATEGORY: BIRADS Category 1: Negative. A letter regarding these results will be sent to the patient by the facility within 30 days. Approximately 10% of breast cancers are not detected by mammography. A normal mammogram should not delay biopsy of a clinically suspicious abnormality. [id number] Electronically Signed: Thomas Arvizu MD at 11:33 EDT Tel [phone], Service support , CC: Ra Simms MD Environmental Protection Inspector: Signed CHEST PA AND LATERAL Observed: 10/12/2017 Status: F Source: TRISTAN 9:03 AM [facility] REPOSITORY [facility] Imaging Services [address] [place] [address] Chest PA and Lateral MR#: [id number] Acct: [id number] Name: CHUCK BOO Rep #: [id number] : 1950 F 66 From: Anselmo Jones DO PCP: Ra Simms MD Status: REG CLI Study: Chest PA and Lateral Date of Exam: 10/12/17 Exam# [id number] Ordering Dr: Ra Simms MD STUDY: X-RAY CHEST REASON FOR EXAM: Female, 66 years old. Acute bronchitis. TECHNIQUE: PA and lateral views of the chest. COMPARISON: August 20, 2015. FINDINGS: The lungs are clear and expanded. There is no demonstrated pleural abnormality. Normal size heart. Normal mediastinum and jt. Normal visualized pulmonary arteries. Normal visualized aortic arch and descending thoracic aorta. Normal visualized thoracic spine. Normal visualized ribs, clavicles, and shoulders. There is no demonstrated abnormality of the visualized soft tissue structures of the upper abdomen. RAD/Chest PA and Lateral IMPRESSION: No acute cardiopulmonary disease or interval change. Electronically Signed: Anselmo Jones DO at 17:23 EDT Tel [phone], Service support , CC: Ra Simms MD Environmental Protection Inspector: Signed COMPREHENSIVE METABOLIC Collected: 10/12/2017 Status: F Source: [facility] PROFIL [facility] TYPE CODE TESTS RESULT OUT OF RANGE REFERENCE UNITS LAB L501.0100 74-106 mg/dL High GLU 177 Result Comment: Fasting Glucose result greater than or equal to 126 mg/dL suggests DIABETES MELLITUS per A.D.A. criteria. Please note revised GLUCOSE reference range effective 2017. LAB L501.1000 7-18 mg/dL Normal BUN 13 LAB L501.1100 0.55-1.02 mg/dL High CREAT,SERUM 1.07 Result Comment: The validity of the calculated GFR AND GFRAA in patients over 70 years has not been determined. Clinical correlation is essential. LAB L501.1110 >60 mL/min Low EST GFR 54 Result Comment: Non- GFR Calc LAB L501.1115 >60 mL/min Normal EST GFR - AA 66 Result Comment: GFR Calc LAB L501.1300 10-20 RATIO Normal BUN/CRE 12.1 LAB L501.1500 6.4-8.2 g/dL T Normal PROT 7.4 LAB L501.1800 3.2-5.0 g/dL Normal ALB 4.1 LAB L501.1950 2.2-4.2 g/dL Normal GLOB 3.3 LAB L501.2000 0.9-2.4 RATIO Normal A/G 1.2 LAB L501.2200 8.5-10.1 mg/dL CA Normal 9.1 LAB L501.4100 15-37 U/L Normal AST 19 LAB L501.4305 45-117 U/L Normal ALK P 95 LAB L501.4405 13-56 U/L Normal ALT 33 LAB L501.4600 0.20-1.00 mg/dL T Normal BILI 0.60 LAB L501.5300 136-145 mmol/L NA Normal 141 LAB L501.5600 3.5-5.1 mmol/L K Normal 3.9 LAB L501.5900 98-107 mmol/L CL Normal 106 LAB L501.6100 21.0-32.0 mmol/L Normal CO2 26.0 LAB L501.6200 5-15 Normal GAP 9 Performed By: #### L500.4050, L500.4100 #### [facility] [address] [place], [place], [id number] LIPID PROFILE Collected: 10/12/2017 Status: F Source: TRISTAN 8:55 AM [facility] REPOSITORY TYPE CODE TESTS RESULT OUT OF RANGE REFERENCE UNITS LAB L501.4900 200 mg/dL Normal CHOL 170 Result Comment: <200 mg/dL Desirable 200-240 mg/dL Borderline >240 mg/dL High Risk LAB L501.5000 mg/dL Normal TRIG 117 Result Comment: The drugs N-Acetylcysteine and Metamizole may falsely depress this assay. Serum Triglycerides Reference Interval Normal <150 mg/dL Borderline high 150 - 199 mg/dL High 200 - 499 mg/dL Very High > or = 500 mg/dL LAB L501.6400 mg/dL Normal HDL 72 Result Comment: The drugs N-Acetylcysteine and Metamizole may falsely depress this assay. Reference Range HDL <40 mg/dL Low HDL Cholesterol HDL >or= 60 mg/dL High HDL Cholesterol LAB L501.6500 0-130 mg/dL Normal LDL 75 LAB L501.6600 5-40 mg/dL Normal VLDL 23 Performed By: #### L500.4050, L500.4100 #### [facility] [address] [place], [place], [address] VITAMIN D,25 HYDROXY Collected: 10/12/2017 Status: F Source: TRISTAN 8:55 AM [facility] REPOSITORY TYPE CODE TESTS RESULT OUT OF REFERENCE UNITS RANGE LAB L506.1000 29.95-100.01 ng/mL Low Vitamin D 26.0 25-OH Result Comment: Vitamin D 25(OH) Status Range Deficiency <20 ng/mL (50nmol/L) Insuffciency 20 - 30 ng/mL (50 - 75 nmol/L) Sufficiency 30 - 100 ng/mL (75 - 250 nmol/L) Toxicity >100 ng/mL (>250 nmol/L) Performed By: #### L506.1000 #### [facility] [address] [place], [address] COMPREHENSIVE METABOLIC Collected: 07/15/2017 Status: F Source: [facility] 9:50 AM [facility] REPOSITORY TYPE CODE TESTS RESULT OUT OF RANGE REFERENCE UNITS LAB L501.0100 74-106 mg/dL Normal GLU 97 Result Comment: Please note revised GLUCOSE reference range effective 2017. LAB L501.1000 7-18 mg/dL Normal BUN 13 LAB L501.1100 0.55-1.02 mg/dL Normal CREAT,SERUM 0.87 Result Comment: The validity of the calculated GFR AND GFRAA in patients over 70 years has not been determined. Clinical correlation is essential. LAB L501.1110 >60 mL/min Normal EST GFR 69 Result Comment: Non- GFR Calc LAB L501.1115 >60 mL/min Normal EST GFR - AA 84 Result Comment: GFR Calc LAB L501.1300 10-20 RATIO Normal BUN/CRE 15.0 LAB L501.1500 6.4-8.2 g/dL T Normal PROT 7.1 LAB L501.1800 3.2-5.0 g/dL Normal ALB 3.9 LAB L501.1950 2.2-4.2 g/dL Normal GLOB 3.2 LAB L501.2000 0.9-2.4 RATIO Normal A/G 1.2 LAB L501.2200 8.5-10.1 mg/dL Low CA 8.3 LAB L501.4100 15-37 U/L Normal AST 17 LAB L501.4305 45-117 U/L Normal ALK P 98 LAB L501.4405 13-56 U/L Normal ALT 25 Result Comment: Please note revised ALT reference range effective 2017. LAB L501.4600 0.20-1.00 mg/dL Normal T BILI 0.50 LAB L501.5300 136-145 mmol/L Normal NA 141 LAB L501.5600 3.5-5.1 mmol/L Normal K 3.8 LAB L501.5900 98-107 mmol/L Normal CL 105 LAB L501.6100 21.0-32.0 mmol/L Normal CO2 32.0 LAB L501.6200 5-15 Low GAP 4 Performed By: #### L500.4050, L500.4100 #### [facility] [address] [place], [place], [address] LIPID PROFILE Collected: 07/15/2017 Status: F Source: TRISTAN 9:50 AM [facility] REPOSITORY TYPE CODE TESTS RESULT OUT OF RANGE REFERENCE UNITS LAB L501.4900 200 mg/dL Normal CHOL 176 Result Comment: <200 mg/dL Desirable 200-240 mg/dL Borderline >240 mg/dL High Risk LAB L501.5000 mg/dL High TRIG 242 Result Comment: The drugs N-Acetylcysteine and Metamizole may falsely depress this assay. Serum Triglycerides Reference Interval Normal <150 mg/dL Borderline high 150 - 199 mg/dL High 200 - 499 mg/dL Very High > or = 500 mg/dL LAB L501.6400 mg/dL Normal HDL 61 Result Comment: The drugs N-Acetylcysteine and Metamizole may falsely depress this assay. Reference Range HDL <40 mg/dL Low HDL Cholesterol HDL >or= 60 mg/dL High HDL Cholesterol LAB L501.6500 0-130 mg/dL Normal LDL 67 LAB L501.6600 5-40 mg/dL High VLDL 48 Performed By: #### L500.4050, L500.4100 #### [facility] [address] [place], [address] ALLERGIES ALLERGIES DATE TYPE / NAME / CODE REACTION SEVERITY SOURCE CODE 04/26/2018 Drug hydromorphone EXTREME LETHARGY Unknown [place] Allergy/41 HCl/[id number](RXNO Community [id number]([facility]) [facility]) Repository 04/26/2018 Drug codeine/[id number]( DIFFICULTY SV [place] Allergy/41 RXNORM) BREATHING/THROAT Community [id number]([facility]) Repository ENCOUNTERS ENCOUNTERS ADMIT/DISCHARGE ACCOUNT ADMITTING ENCOUNTER LOCATION SOURCE NUMBER CLASS 04/26/2018 [id number] Ambulatory [place] 7 [facility] ing:PAVLAB Repository 04/26/2018/ [id number] Ambulatory BMSBuilding:B [place] 9 3 [place] [place] 03/22/2018/ [id number] Mitra Augustin Ambulatory [place] 8 3 [place] [facility] ing:ME2Jgga: Repository [id number]: 1 03/22/2018 [id number] Mitra Augustin Ambulatory BMSBuilding:B [place] 3 [place].[facility] 03/22/2018 [id number] Mitra Augustin Ambulatory BMSBuilding:B [place] 5 [place] [facility] Repository 03/22/2018 [id number] Mitra Augustin Ambulatory BMSBuilding:B [place] 8 [place].CF.[facility] Repository 03/22/2018 [id number] Mitra Augustin Ambulatory BMSBuilding:B [place] 9 [place].[facility] Repository 03/22/2018 [id number] Mitra Augustin Ambulatory BMSBuilding:B [place] 8 [place] [facility] Repository 03/22/2018 [id number] Mitra Augustin Ambulatory BMSBuilding:B [place] 6 [place] [facility] Repository 01/27/2018/ [id number] Ambulatory BMSBuilding:B [place] 8 0 [facility] Repository 12/23/2017 [id number] Ambulatory [place] 6 [facility] ing:CT Repository 12/13/2017 [id number] Ambulatory [place] 4 [facility] ing:PAVLAB Repository 12/13/2017/ [id number] Ambulatory BMSBuilding:B [place] 8 2 [facility] Repository 11/22/2017 [id number] Ambulatory [place] 0 [facility] ing:EN Repository 10/19/2017/ [id number] Ambulatory BMSBuilding:B [place] 8 8 [facility] Repository 10/14/2017 [id number] Ambulatory [place] 3 [facility]OPBI Repository 10/12/2017 [id number] Ambulatory [place] 0 [facility] ing[facility]LAB Repository 08/03/2017 [id number] Ambulatory BMS [place] [facility] Repository 07/27/2017 [id number] Ambulatory BMSBuilding:B [place] 8 [facility] Repository 07/15/2017 [id number] Ambulatory [place] 8 [facility] ing:LAB Repository PAYERS PAYERS ENCOUNTER GUARANTOR PAYER SUBSCRIBER SOURCE 04/26/2018 CHUCK Thorpe Primary Insurance:MMO CHUCK [place] [id number] CANAL MEDICAREPolicy MARKIEOB: [facility] Number: [id number] [place] [id number] Repository [place] [address]Xfr: Date:[id number] [address] [place] [address] () [phone]: 04/26/2018 Secondary NOT GIVENUNK [place] Insurance:SELF PAY [facility] Number: Effective Repository Date:2018-04-26 04/26/2018 CHUCK R Primary Insurance:MMO CHUCK R [place] [id number] CANAL MEDICAREPolicy HUSKDOB: [facility] Number: [id number] [id number] Repository [place] [address]Zhc: Date:5617-82-09PI [address] [place] [address] () [phone]: 04/26/2018 Secondary NOT GIVENUNK [place] Insurance:SELF PAY [facility] Number: Effective Repository Date:2018-04-25 03/22/2018 CHUCK R Primary Insurance:MMO CHUCK R [place] [id number] CANAL [facility]AREFl[facility] Healthcareicy HUSKDOB: [facility] Number: [id number] [facility] Northwest Hospital [id number] Repository [place] [address]Kjp: Date:9980-12-86JS [address] [place] [address] () [phone]: 03/22/2018 Secondary NOT GIVENUNK [place] Insurance:SELF PAY [facility] Number: Effective Repository Date:2018-03-22 03/22/2018 CHUCK R Primary Insurance:MMO CHUCK R [place] [id number] [facility] MEDICAREWellSpan Good Samar[facility] HospitalKDOB: [facility] Number: [id number] [facility] Northwest Hospital [id number] Repository [place] [address]Ual: Date:[id number] [address] [place] [address] () [phone]: 03/22/2018 Secondary NOT GIVENUNK [place] Insurance:SELF PAY [facility] Number: Effective Repository Date:2018-03-22 03/22/2018 CHUCK R Primary Insurance:MMO CHUCK R [place] [id number] CANAL MEDICAREPolicy [facility] Number: [id number] [id number] Repository [place] [address]Ptr: Date:6362-60-64LI [address] [place] [address] () [address]FT: 03/22/2018 Secondary NOT GIVENUNK [place] Insurance:SELF PAY [facility] Number: Effective Repository Date:2018-03-22 03/22/2018 CHUCK R Primary Insurance:MMO CHUCK R [place] [id number] CANAL MEDICAREFlorence Community Healthcareicy [facility] Number: [id number] [facility] [id number] Repository [place] [address]Hey: Date:7105-40-71PN [address] [place] [address] () [phone]: 03/22/2018 Secondary NOT GIVENUNK [place] Insurance:SELF PAY [facility] Number: Effective Repository Date:2018-03-22 03/22/2018 CHUCK R Primary Insurance:MMO CHUCK R [place] [id number] CANAL MEDICAREFlorence Community Healthcareicy [facility] Number: [id number] [facility] [id number] Repository [place] [phone]: Date:4840-55-59VI [address] [place] [address] () [id number]: 03/22/2018 Secondary NOT GIVENUNK [place] Insurance:SELF PAY [facility] Number: Effective Repository Date:2018-03-22 03/22/2018 CHUCK R Primary Insurance:MMO CHUCK R [place] [id number] CANAL MEDICAREFlorence Community HealthcareicHCA [facility] HospitalKDOB: [facility] Number: [id number] [facility] [id number] Repository [place] [address]Dgr: Date:9455-22-75GO [address] [place] [address] () [address]QY: 03/22/2018 Secondary NOT GIVENUNK [place] Insurance:SELF PAY [facility] Number: Effective Repository Date:2018-03-22 03/22/2018 CHUCK R Primary Insurance:MMO CHUCK R [place] [id number] [facility] MEDICAREWellSpan Good Samaritan HospitalKDOB: [facility] Number: [id number] [facility] [id number] Repository [place] [address]Hnr: Date:6161-23-58YA [address] [place] [address] () [address]NB: 03/22/2018 Secondary NOT GIVENUNK [place] Insurance:SELF PAY [facility] Number: Effective Repository Date:2018-03-22 01/27/2018 CHUCK R Primary Insurance:MMO CHUCK R [place] [id number] [facility] MEDICAREWellSpan Good Samaritan HospitalKDOB: [facility] Number: [id number] [facility] [id number] Repository [place] [address]Tvk: Date:6469-23-99SN [address] [place] [address] () [id number]: 01/27/2018 Secondary NOT GIVENUNK [place] Insurance:SELF PAY [facility] Number: Effective Repository Date:2018-01-25 12/23/2017 CHUCK R Primary Insurance:MMO CHUCK R [place] [id number] [facility] MEDICAREFlorence Community Healthcareicy [facility]: [facility] Number: [id number] [facility] Northwest Hospital [id number] Repository [place] [address]Dha: Date:3491-04-10US [address] [place] [address] () [address]ES: 12/23/2017 Secondary NOT GIVENUNK [place] Insurance:SELF PAY [facility] Number: Effective Repository Date:2017-12-20 12/13/2017 CHUCK R Primary Insurance:MMO CHUCK R [place] [id number] CANAL MEDICAREPolicy HUSKDOB: [facility] Number: [id number] [facility] Hospital [id number] Repository [place] [address]Bka: Date:8287-63-63GW [address] [place] [address] () [address]XY: 12/13/2017 Secondary NOT GIVENUNK [place] Insurance:SELF PAY [facility] Number: Effective Repository Date:2017-12-13 12/13/2017 CHUCK R Primary Insurance:MMO CHUCK R [place] [id number] [facility] MEDICAREPolicy HUSKDOB: [facility] Number: [id number] [facility] Northwest Hospital [id number] Repository [place] [address]Rjk: Date:9639-28-99SP [address] [place] [address] () [address]OV: 12/13/2017 Secondary NOT GIVENUNK [place] Insurance:SELF PAY [facility] Number: Effective Repository Date:2017-12-03 11/22/2017 CHUCK R Primary Insurance:MMO CHUCK R [place] [id number] [facility] MEDICAREPolicy HUSKDOB: [facility] Number: [id number] [facility] Hospital [id number] Repository [place] [address]Kiq: Date:9981-53-30GL [address] [place] [address] (HP) [address]AG: 11/22/2017 Secondary NOT GIVENUNK [place] Insurance:SELF PAY [facility] Number: Effective Repository Date:2017-10-19 10/19/2017 CHUCK R Primary Insurance:MMO CHUCK R [place] [id number] [facility] MEDICAREPolicy HUSKDOB: [facility] Number: [id number] [facility] Hospital [id number] Repository [place] [address]Fyj: Date:9867-53-83NP [address] [place] [address] () [address]QO: 10/19/2017 Secondary NOT GIVENUNK [place] Insurance:SELF PAY [facility] Number: Effective Repository Date:2017-10-19 10/14/2017 CHUCK R Primary Insurance:MMO CHUCK R [place] [id number] CANAL MEDICAREPolicy HUSKDOB: [facility] Number: [id number] [facility] Northwest Hospital [id number] [place]ository [place] [address]Pvb: Date:6133-53-46RP [address] [place] [address] () [address]SB: 10/14/2017 Secondary NOT GIVENUNK [place] Insurance:SELF PAY [facility] Number: Effective Repository Date:2017-09-27 10/12/2017 CHUCK R Primary Insurance:MMO CHUCK R [place] [id number] [place] MEDICAREWellSpan Good Samaritan HospitalKDOB: [facility] Number: [id number] [id number] [place] [address]Xpo: Date:8588-92-15ES [address] [place] [address] () [address]IU: 10/12/2017 Secondary NOT GIVENUNK [place] Insurance:SELF PAY [facility] Number: Effective Repository Date:2017-10-12 08/03/2017 CHUCK R Primary Insurance:MMO CHUCK R [place] [id number] [place] MEDICAREFlorence Community Healthcareicy [facility]ERKD[facility]: [facility] Number: [id number] [facility] [id number] Repository [place] [address]Hhh: Date:4282-34-38ZX [address] [place] [address] () [address]NV: 08/03/2017 Secondary NOT GIVENUNK [place] Insurance:SELF PAY [facility] Number: Effective Repository Date:2017-08-03 07/27/2017 CHUCK R Primary Insurance:MMO CHUCK R [place] [id number] [place] MEDICAREFlorence Community Healthcareicy [facility]ERKD[facility]: [facility] Number: [id number] [facility], [id number] Repository [place] [address]Kyh: Date:7418-39-07LU [address] [place] [address] () [address]BY: 07/27/2017 Secondary NOT GIVENUNK [place] Insurance:SELF PAY [facility] Number: Effective Repository Date:2017-07-27 07/15/2017 CHUCK [place] Primary Insurance:O CHUCK [place] [id number] [place] MEDICAREPolicy HUSKDOB: [facility] Number: [id number] Medical Center, [id number] [place]ository [place] [address]Wjt: Date:4555-97-32CP [address] [place] [address] () [address]XA: 07/15/2017 Secondary NOT GIVENUNK [place] Insurance:SELF PAY [facility] Number: Effective Repository Date:2017-07-15
== END 2018-03-25 13:15 | disposition home or self-care (01) ==
LOC: ED 17:42 → MS2 21:09
PROVIDERS: Admitting Provider Student in an Organized Health Care Education/Training Program; Emergency Provider Emergency Medicine; Family Provider Family Medicine; PCP Family Medicine; Visit Provider Internal Medicine
DX: J45.51 Severe persistent asthma with (acute) exacerbation (principal); I13.0 Hypertensive heart and chronic kidney disease with heart failure and stage 1 through stage 4 chronic kidney disease, or unspecified chronic kidney disease; I50.32 Chronic diastolic (congestive) heart failure; N18.2 Chronic kidney disease, stage 2 (mild); Z79.899 Other long term (current) drug therapy; Z79.51 Long term (current) use of inhaled steroids; E78.5 Hyperlipidemia, unspecified; J06.9 Acute upper respiratory infection, unspecified; F41.8 Other specified anxiety disorders; G43.909 Migraine, unspecified, not intractable, without status migrainosus
CPT/HCPCS: 71046; 80048; 81001; 84484; 85025; 87086; 87088; 87633; 93005; 94640; 96361; 96372; 96374; 96375; 96376; 97802; 99218; 99285; J7030; A4216; G0378

== ENCOUNTER → 2018-04-26 11:22 | Outpatient (CLI) | payer MEDICARE, SELFPAY ==
[2018-04-26 10:42] VITALS: BMI 26.5
[2018-04-26 12:01] LABS: Absolute Lymphocyte Count 2.34 X10^3/ul (0.83-4.51); Absolute Neutrophil Count 4.1 X10^3/uL (2.0-7.7); Basophil# 0.13 X10^3/uL; Basophil% 1.5 % (0-1); Eosinophil# 1.21 X10^3/uL; Eosinophils% 14.2 % (0-5); Hematocrit 42.4 % (37-47); Hemoglobin 14.2 g/dl (12.0-15.0); Lymphocyte # 2.34 X10^3/ul (4.0); Lymphocyte % 27.4 % (19-41); Mean Corp Hgb Conc 33.5 g/gl (32-36); Mean Corpuscular Hgb 30.9 pg (27.0-32.0); Mean Corpuscular Volume 92.2 fL (81-99); Mean Platelet Vol. 9.7 fl (6.2-12.0); Monocyte% 8.2 % (0-10); Neutrophil # 4.12 X10^3/uL (2.7-7.7); Neutrophil % 48.1 % (47-70); POSITIVE COUNT NO; POSITIVE DIFFERENTIAL NO; POSITIVE MORPHOLOGY NO; Platelet Count 348 K/mm3 (150-450); RBC Distribution Width CV 13.6 % (11.6-14.6); RBC Distribution Width SD 44.9 fl (35.1-43.9); White Blood Count 8.6 K/mm3 (4.4-11.0)
--- OUTSIDE RECORDS SUMMARY | 2018-06-28 15:11 | XMS RPT_ITS ---
:1950 Author Organization [place] Support Name Relationship Address Phone HEROAmeenaORIONKAILEE Unavailable [address] + [place] [address] R Unavailable Unavailable Unavailable HEROK, KAILEE Unavailable [address] + [place] [address] R Unavailable Unavailable Unavailable ORION BOOVIN Unavailable [address] + [place] [address] R Unavailable Unavailable Unavailable HEROK, KAILEE Unavailable [address] + [place] [address] R Unavailable Unavailable Unavailable HEROK, KAILEE Unavailable [address] + [place] [address] R Unavailable Unavailable Unavailable HEROK, KAILEE Unavailable [address] + [place] [address] R Unavailable Unavailable Unavailable HEROK, KAILEE Unavailable [address] + [place] [address] R Unavailable Unavailable Unavailable RAJEEV, KAILEE Unavailable [address] + [place] [address] R Unavailable Unavailable Unavailable HEROK, KAILEE Unavailable [address] + [place] [address] R Unavailable Unavailable Unavailable HEROK, KAILEE Unavailable [address] + [place] [address] R Unavailable Unavailable Unavailable HEROK, KAILEE Unavailable [address] + [place] [address] R Unavailable Unavailable Unavailable HEROK, KAILEE Unavailable [address] + [place] [address] R Unavailable Unavailable Unavailable HUSK KAILEE Unavailable [address] + [place] [address] R Unavailable Unavailable Unavailable HUSK KAILEE Unavailable [address] + [place] [address] R Unavailable Unavailable Unavailable D Unavailable Unavailable Unavailable HUSK KAILEE Unavailable [address] + [place] [address] D Unavailable Unavailable Unavailable HUSK, KAILEE Unavailable [address] + [place] [address] HUSK KAILEE Unavailable [address] + [place] [address] UE Unavailable Unavailable Unavailable HUSK KAILEE Unavailable [address] + [place] [address] UE Unavailable Unavailable Unavailable HUSK KAILEE Unavailable [address] + [place] [address] UE Unavailable Unavailable Unavailable HUSK KAILEE Unavailable [address] + [place] [address] UE Unavailable Unavailable Unavailable Care Team Providers Name Role Phone EFFIE, RA Primary Care Unavailable Koram, Mitra Karlene Admitting Unavailable Salinas Parker Attending Unavailable Hiram Sifuentes D.O. Consulting Unavailable Koram, Mitra Karlene Admitting Unavailable Koram, Mitra Karlene Attending Unavailable EFFIE, RA Primary Care Unavailable Koram, Mitra Karlene Consulting Unavailable Koram, Mitra Karlene Admitting Unavailable Salinas Parker Attending Unavailable EFFIE, RA Primary Care Unavailable Salinas Parker Consulting Unavailable Franam, Mtira Karlene Admitting Unavailable Salinas Parker Attending Unavailable EFFIE, RA Primary Care Unavailable Hiram Sifuentes D.O. Consulting Unavailable Salinas Parker Consulting Unavailable Koram, Mitra Karlene Admitting Unavailable Hiram Sifuentes D.O. Attending Unavailable EFFIE, RA Primary Care Unavailable Hiram Sifuentes D.O. Consulting Unavailable Salinas Parker Consulting Unavailable Franam, Mitra Karlene Admitting Unavailable Salinas Parker Attending Unavailable EFFIE, RA Primary Care Unavailable Hiram Sifuentes D.O. Consulting Unavailable Salinas Parker Consulting Unavailable Mitra Augustin Admitting Unavailable Hiram Sifuentes D.O. Attending Unavailable EFIFE, RA Primary Care Unavailable Hiram Sifuentes D.O. Consulting Unavailable Salinas Parker Consulting Unavailable Sue, Shauna Attending Unavailable EFFIE, RA Referring Unavailable Sue, Shauna Attending Unavailable Sue, Shauna Referring Unavailable EFFIE, RA Primary Care Unavailable EFFIE, RA Attending Unavailable EFFIE, RA Referring Unavailable EFFIE, RA Primary Care Unavailable Dorota Salmeron Attending Unavailable Ava Peters Attending Unavailable EFFIE, RA Attending Unavailable EFFIE, RA Referring Unavailable EFFIE, RA Primary Care Unavailable EFFIE, RA Referring Unavailable EFFIE, RA Primary Care Unavailable Annetta Damon Attending Unavailable Donnie Dawson Attending Unavailable EFFIE, RA Referring Unavailable EFFIE, RA Primary Care Unavailable Donnie Dawson Attending Unavailable [place], Donnie Referring Unavailable EFFIE, RA Primary Care Unavailable Umesh Rojo Attending Unavailable EFFIE, RA Referring Unavailable EFFIE, RA Primary Care Unavailable DarrelUmesh ray Attending Unavailable Darrel, Umesh Referring Unavailable EFFIE, RA Primary Care Unavailable DarrelUmesh ray Attending Unavailable Darrel, Umesh Referring Unavailable EFFIE, RA Primary Care Unavailable DarrelUmesh ray Attending Unavailable EFFIE, RA Referring Unavailable PROBLEMS PROBLEMS DATE TYPE CONDITION / CODE ATTENDING STATUS SOURCE 04/26/2018 Unknown D72.1 - Eosinophilia / Sue, Active [facility] D72.1(ICD-10) [facility] Repository 12/13/2017 Unknown J45.41 - Moderate Darrel, Umesh Active [facility] persistent asthma with Community (acute) exacerbation / Hospital J45.41(ICD-10) Repository 12/13/2017 Unknown I50.32 - Chronic Darrel, Umesh Active [place] diastolic (congestive) Community heart failure / Hospital I50.32(ICD-10) Repository 12/13/2017 Unknown J45.51 - Severe Darrel, Umesh Active [place] persistent asthma with Community (acute) exacerbation / Hospital J45.51(ICD-10) Repository 10/14/2017 Unknown Z12.31 - Encounter for Nga Damon screening mammogram [facility] for malignant neoplasm Hospital of breast / Repository Z12.31(ICD-10) 10/12/2017 Unknown 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, 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, RA Community recurrent, mild / Hospital F33.0(ICD-10) Repository 10/12/2017 Unknown E78.2 - Mixed EFFIE, Active [facility] hyperlipidemia / RA Community E78.2(ICD-10) Hospital Repository 10/12/2017 Unknown J01.40 - Acute EFFIE, Active [place] pansinusitis, RA Community unspecified / Hospital J01.40(ICD-10) Repository 10/12/2017 Unknown N18.2 - Chronic kidney EFFIE, Active [place] disease, stage 2 RA Community (mild) / N18.2(ICD-10) Hospital Repository 10/12/2017 Unknown I50.30 - Unspecified EFFIE, Active [place] diastolic (congestive) [facility] heart failure / Hospital I50.30(ICD-10) Repository 10/12/2017 Unknown M81.8 - Other EFFIE, Active [place] osteoporosis without RA Community current pathological Hospital fracture / Repository M81.8(ICD-10) 10/12/2017 Unknown J20.9 - Acute EFFIE, Active [place] bronchitis, RA Community unspecified / Hospital J20.9(ICD-10) Repository 07/15/2017 Unknown E78.1 - Pure EFFIE, Active [place] hyperglyceridemia / RA Community E78.1(ICD-10) Hospital Repository PROCEDURES PROCEDURES No Procedure Records FoundRESULTS RESULTS PULMONARY VISIT REPORT Observed: 04/26/2018 Status: F Source: [facility] 2:02 [facility] REPOSITORY [facility] Pulmonary Medicine of [address] [place] [address] OFFICE VISIT Date of Service: 04/26/18 MR#: [id number] Acct: [id number] Name: CHUCK BOO Rep #: [id number] : 1950 Provider: Shauna Sue Age/Sex: 67/F [place] [facility] Status: Signed Assessment AND Plan 1. Severe [...] Visit Reasons: 3 M FU DME Vendor: Mismi Accompanied by: Self Allergies codeine Allergy (Severe, [...] D72.1 04/26/18 1402 <Electronically signed by Shauna AALRCON> Date Shauna ALARCON Cosigner Signature: Date (if applicable) CC: Ra Simms MD CBC W/DIFF, AUTOMATED Collected: 04/26/2018 Status: F Source: [place] 11:37 AM [facility] REPOSITORY TYPE CODE TESTS RESULT OUT OF [...] Lymph 2.34 Performed By: #### L100.0100 #### [facility] [place], [address] 12 LEAD ELECTROCARDIOGRAM Observed: 03/25/2018 Status: F Source: [place] 1:43 PM [facility] REPOSITORY [facility] Cardiovascular Services [address] [place] [address] 12 Lead EKG 03/22/18 1750 MR#: [id number] Acct: [id number] Name: CHUCK BOO R Rep #: [id number] : 1950 67 From: Andrade Arellano MD Attending Dr: Salinas Parker MD Status: DIS ANGELITO Ordering Dr: Chay Goode MD Date: 03/22/18 Location: [facility] Sex: F C Admitted: 03/22/18 Test Reason [...] ECG Confirmed by ANDRADE ARELLANO MD ([id number]), proposal editor SUNDEEP DEVRIES ([id number]) on 03/25/2018 1:43:31 PM Referred By: Confirmed By:ANDRADE ARELLANO MD 03/25/18 1343 Date Andrade Arellano MD CC: Salinas Parker MD; Ra Simms MD; Chay Goode MD Signed DISCHARGE SUMMARY Observed: 03/25/2018 Status: F Source: [place] 8:16 AM [facility] REPOSITORY [facility] Medical Records Department [address] [place] [address] Discharge Summary 03/25/18 0812 MR#: [id number] Acct: [id number] Name: CHUCK BOO R Rep #: [id number] : 1950 67 From: Salinas Parker MD PCP: Ra Simms MD Status: ADM ANGELITO Y Location: MS2 CG531-6 Discharge Date and Diagnosis - Problem List [...] applicable Code Visit OBSV E AND M: 03772 Observation care discharge 03/25/18 0816 <Electronically signed by Salinas Parker MD> Date Salinas Parker MD Cosigner Signature (if applicable): Date CC: Salinas Parker MD; Ra Simms MD Signed DISCHARGE INSTRUCTION Observed: 03/25/2018 Status: F Source: [place] 8:12 AM [facility] REPOSITORY [facility] Medical Records Department [address] [place] [address] Instructions for Home/Discharge Instructions 03/25/18 0810 MR#: [id number] Acct: [id number] Name: CHUCK BOO Rep #: [id number] : 1950 67 From: Salinas Parker MD [...] MD CONSULTATION Observed: 03/24/2018 Status: F Source: [facility] 2:43 PM [facility] REPOSITORY [facility] Medical Records Department [address] [place] [address] Consultation 03/24/18 1432 MR#: [id number] Acct: [id number] Name: CHUCK BOO Rep #: [id number] : 1950 67 From: Hiram Sifuentes DO PCP: Ra Simms MD Status: ADM ANGELITO Y Location: [address] Reason for Consult Date of Consultation: [...] as indicated. This note was generated with [employer]ation software. It may contain incorrect words, spelling, and punctuation that were not noted in checking the note before signing. Code Visit Inpatient E AND M: 00804 Init Hosp L2 03/24/18 1443 <Electronically signed by Hiram Sifuentes DO> Date Hiram Sifuentes DO Cosigner Signature (if applicable): Date CC: Hiram Sifuentes D.O.; Ra Simms MD Signed URINALYSIS, COMPLETE Collected: 03/24/2018 Status: F Source: [place] 8:45 AM [facility] REPOSITORY Order Comment: How was Urine Obtained? BLOWER OPERATOR TO SPECIFY TYPE CODE TESTS RESULT OUT [...] URINE SEEN Performed By: #### L400.0001 #### [facility] [address] [place], [address] Observed: 03/24/2018 Status: F Source: [facility] CULTURE, URINE 8:45 AM [facility] REPOSITORY Urine Culture ORGANISM 1: Mixed Gram Pos AND Gram Neg Org Creola Count 1000-10,000 MIX CULTURE Mixed contaminants. Submit a new specimen if indicated. Performed By: #### M100.0650 #### [facility] [address], [address] CBC W/DIFF, AUTOMATED Collected: 03/23/2018 Status: F Source: [place] 7:45 AM [facility] REPOSITORY TYPE CODE TESTS RESULT OUT OF [...] Lymph 0.68 Performed By: #### L100.0100 #### [facility] [address] [place] [place], [address] BASIC METABOLIC Collected: 03/23/2018 Status: F Source: [facility] [facility] PROFILE ([facility]) 7:45 AM [facility] REPOSITORY TYPE CODE TESTS RESULT OUT OF [...] GAP 9 Performed By: #### L500.2500 #### [facility] [address] [place], [address] HISTORY AND PHYSICAL Observed: 03/23/2018 Status: F Source: [facility] [facility] EXAM 1:44 AM [facility] REPOSITORY [facility] Medical Records Department [address] [place] [address] History and Physical 03/22/182028 MR#: [id number] Acct: [id number] Name: CHUCK BOO Rep #: [id number] : 1950 67 From: Mitra Augustin MD PCP: Ra Simms MD Status: ADM ANGELITO Y Location: [place] [address] History of Present Illness Date of Admission: [...] showed no acute infiltrate * admit to [facility] with telemetry * breathing treatments with [...] Patient elects to be full code. Total ouzp-cm-ecbu time 17 minutes. Code Visit OBSV E AND M: 87598 Initial observation care L3 Procedures: 93332 Advncd Care Plan 30 Min 03/23/18 0144 <Electronically signed by Mitra Augustin MD> Date Mitra Augustin MD Cosigner Signature: Date (if applicable) CC: Ra Simms MD; Mitra Augustin MD Signed EMERGENCY DEPARTMENT Observed: 03/22/2018 Status: F Source: [facility] SUMMARY 11:31 PM [facility] REPOSITORY [facility] Medical Records Department [address] [place] [address] Emergency Department Summary 03/22/18 1906 MR#: [id number] Acct: [id number] Name: CHUCK BOO Rep #: [id number] : 1950 67 From: Chay Goode MD [...] asthma exacerbation This note was generated with [employer] dictation software. It may contain incorrect words, [...] your Primary Care Provider. Call [facility] ([phone]) or report to the closest Emergency Room. Call 911 if necessary. 03/22/18 2331 <Electronically signed by Chay Goode MD> Date Chay Goode MD Cosigner Signature (If Indicated): Date CC: Ra Simms MD Observed: 03/22/2018 Status: F Source: [facility] RESPIRATORY PANEL 11:30 PM [facility] MOLECULAR REPOSITORY RP PANEL ADENOVIRUS Not Detected [...] acid amplification Performed By: #### M100.638 #### [facility] [address] [place], [address] CBC W/DIFF, AUTOMATED Collected: 03/22/2018 Status: F Source: [place] 6:19 PM [facility] REPOSITORY TYPE CODE TESTS RESULT OUT OF [...] Lymph 2.62 Performed By: #### L100.0100 #### [facility] [address] [place], [address] BASIC METABOLIC Collected: 03/22/2018 Status: F Source: [facility] PROFILE ([facility]) 6:19 PM [facility] REPOSITORY TYPE CODE TESTS RESULT OUT OF [...] 10 Performed By: #### L500.2500, L501.4010 #### [facility] [address] [facility] [place], [address] TROPONIN-I Collected: 03/22/2018 Status: F Source: [facility] 6:19 PM [facility] REPOSITORY TYPE CODE TESTS RESULT OUT OF RANGE REFERENCE UNITS LAB L501.4010 <0.045 ng/mL Normal < 0.015 TROPONIN-I Result Comment: TROPONIN-I EXPECTED VALUES <0.045 Negative 0.045 - 0.590 Consistent with Cardiac Damage > OR = 0.600 Critical Value Not every elevated troponin is indicative of FL. These values should be used with clinical judgement in examining the patient's clinical picture for diagnosis. To establish a diagnosis of FL versus myocardial injury, there must be a demonstrated rise and/or fall in the troponin values, in addition to ischemic symptoms, EKG changes, new regional wall motion abnormality, and/or angiographical evidence. PLEASE NOTE: REFERENCE RANGES EDITED 17 Performed By: #### L500.2500, L501.4010 #### [facility] [address] [facility] [place], [address] CHEST PA AND LATERAL Observed: 03/22/2018 Status: F Source: [facility] [facility] 5:39 PM [facility] REPOSITORY [facility] Imaging Services [address] [place] [address] Chest PA and Lateral MR#: [id number] Acct: [id number] Name: CHUCK BOO Ila Rep #: [id number] : 1950 F 67 From: Kong Kapadia MD PCP: Ra Simms MD Status: REG ER Study: Chest PA and Lateral Date of Exam: 03/22/18 Exam# [id number] Ordering Dr: Chay Goode MD STUDY: X-RAY [...] CC: Ra Simms MD; Chay Goode MD Redye Hand: Signed PULMONARY VISIT REPORT Observed: 01/27/2018 Status: F Source: [place] 10:26 AM [facility] REPOSITORY Pulmonary Medicine of [address] [place] [address] OFFICE VISIT Date of Service: 01/27/18 MR#: [id number] Acct: [id number] Name: CHUCK BOO Rep #: [id number] : 1950 Provider: Umesh oRjo MD Age/Sex: 67/F [place] [facility] Status: Signed Assessment AND Plan Problems 1. [...] Discontinued: Plan Detail Follow Up 3 Months ([facility]) HPI 6 wk FU: Chief Complaint: Shortness [...] kg Intake Visit Reasons: 6 wk FU Pattern Painter Required: No Accompanied by: Self Is patient [...] Status: F Source: [place] CONTRAST 3:08 PM [facility] REPOSITORY [facility] Imaging Services [address] [place] [address] Chest without Contrast MR#: [id number] Acct: [id number] Name: HEROAmeenaCHUCK R Rep #: [id number] : 1950 F 66 From: Gertrude Mattson MD PCP: Ra Simms MD Status: REG CLI Study: Chest without Contrast Date of Exam: 12/23/17 Exam# [id number] Ordering Dr: Umesh Rojo MD STUDY: CT [...] CC: Umesh Rojo MD; Ra Simms MD Redye Hand: Signed PULMONARY VISIT REPORT Observed: 12/13/2017 Status: F Source: [place] 12:18 PM [facility] REPOSITORY Pulmonary Medicine of [address] [place] [address] OFFICE VISIT Date of Service: 12/13/17 MR#: [id number] Acct: [id number] Name: CHUCK BOO Rep #: [id number] : 1950 Provider: Umesh Rojo MD Age/Sex: 66/F [place] [facility] Status: Signed Assessment AND Plan Problems 1. [...] Orders: Plan Detail Follow Up 4-6 weeks ([facility]) HPI cough: Chief Complaint: Frequent [...] 12/13/2017 Status: F Source: [place] 11:36 AM [facility] REPOSITORY TYPE CODE TESTS RESULT OUT OF [...] 2.07 Performed By: #### L100.0100, L503.6620 #### [facility] [address] [place], [address] BNP,B-TYPE NATRIURETIC Collected: 12/13/2017 Status: F Source: [place] PEPTIDE 11:36 AM [facility] REPOSITORY TYPE CODE TESTS RESULT OUT OF RANGE REFERENCE UNITS LAB L503.6620 0-100 pg/mL Normal B-TYPE 20.7 OUSMANE PEP Performed By: #### L100.0100, L503.20 #### [facility] [address] [place], [address] IMMUNOGLOBULIN E Collected: 12/13/2017 Status: F Source: [place] 11:36 AM [facility] REPOSITORY TYPE CODE TESTS RESULT OUT OF RANGE REFERENCE UNITS LAB L3200.1600 0-100 IU/mL Normal IMMUNO E 74 Result Comment: Performed at: [facility] [id number] [employer] Control Technician: Ross Rees MD, Phone: [phone] Performed By: #### L3200.1600, L3500.3600 #### [facility] (refer to report for specific site) refer to report for address and phone number ASPERGILLUS ANTIBODIES Collected: 12/13/2017 Status: F Source: [place] 11:36 AM [facility] REPOSITORY TYPE CODE TESTS RESULT OUT OF RANGE REFERENCE UNITS LAB L3500.3700 Neg:<1:1 Asp. Normal fumigatus Negative LAB L3500.3800 Neg:<1:1 Asp. Normal flavus Negative LAB L3500.3900 Neg:<1:1 Asp. Normal niger Negative Performed By: #### L3200.1600, L3500.3600 #### [facility] (refer to report for specific site) refer to report for address and phone number SURGERY VISIT REPORT Observed: 10/27/2017 Status: F Source: [place] 7:59 AM [facility] REPOSITORY [facility] [address] [place] [address] OFFICE VISIT Date of Service: 10/19/17 MR#: [id number] Acct: [id number] Name: CHUCK BOO Rep #: [id number] : 1950 Provider: Donnie Dawson MD Age/Sex: 66/F Location: [facility] Status: Signed Intake Vital Signs10/19/17 Height 5 ft 3 in 10/19/17 Weight: 146 lb 3 oz 10/19/17 Body Mass Index (BMI) 25.9 10/19/17 Blood Pressure 143/75 Intake Visit Reasons: Schedule Cscope Chief Complaint: screening colonoscopy Pattern Painter Required: No Is patient in pain?: No [...] biopsies were done this was performed in [facility] in the year 1999. She has not [...] person, oriented to place, oriented to time [facility] Head: normocephalic, atraumatic Ears: external [...] Status: F Source: [place] LÓPEZ 10:13 AM [facility] REPOSITORY [facility] Imaging Services [address] [place] [address] SCREENING MAMM (CAD), BILAT MR#: [id number] Acct: [id number] Name: CHUCK BOO Rep #: [id number] : 1950 F 66 From: Thomas Arvizu MD PCP: Ra Simms MD Status: REG CLI Study: SCREENING MAMM (CAD), BILAT Date of Exam: 10/14/17 Exam# [id number] Ordering Dr: Ra Simms MD MAMMOGRAPHY - [...] delay biopsy of a clinically suspicious abnormality. [id number] Electronically Signed: Thomas Arvizu MD at 11:33 EDT Tel [phone], Service support , CC: Ra Simms MD Redye Hand: Signed CHEST PA AND LATERAL Observed: 10/12/2017 Status: F Source: [place] 9:03 AM [facility] REPOSITORY [facility] Imaging Services [address] [place] [address] Chest PA and Lateral MR#: [id number] Acct: [id number] Name: CHUCK BOO Rep #: [id number] : 1950 F 66 From: Anselmo Jones DO PCP: Ra Simms MD Status: REG CLI Study: Chest PA and Lateral Date of Exam: 10/12/17 Exam# [id number] Ordering Dr: Ra Simms MD STUDY: X-RAY [...] Anselmo Jones DO at 17:23 EDT Tel [phone], Service support , CC: Ra Simms MD Redye Hand: Signed COMPREHENSIVE METABOLIC Collected: 10/12/2017 Status: F [...] 9 Performed By: #### L500.4050, L500.4100 #### [facility] [address] [place], [place], [id number] LIPID PROFILE Collected: 10/12/2017 Status: F Source: [place] 8:55 AM [facility] REPOSITORY TYPE CODE TESTS RESULT OUT OF [...] 23 Performed By: #### L500.4050, L500.4100 #### [facility] [address] [place], [place], [address] VITAMIN D,25 HYDROXY Collected: 10/12/2017 Status: F Source: [place] 8:55 AM [facility] REPOSITORY TYPE CODE TESTS RESULT OUT OF REFERENCE UNITS RANGE LAB L506.1000 29.95-100.01 ng/mL Low Vitamin D 26.0 25-OH Result Comment: Vitamin D 25(OH) Status Range Deficiency <20 ng/mL (50nmol/L) Insuffciency 20 - 30 ng/mL (50 - 75 nmol/L) Sufficiency 30 - 100 ng/mL (75 - 250 nmol/L) Toxicity >100 ng/mL (>250 nmol/L) Performed By: #### L506.1000 #### [facility] [address] [place], [address] COMPREHENSIVE METABOLIC Collected: 07/15/2017 Status: F Source: [facility] 9:50 AM [facility] REPOSITORY TYPE CODE TESTS RESULT OUT OF [...] 4 Performed By: #### L500.4050, L500.4100 #### [facility] [address] [place], [place], [id number] LIPID PROFILE Collected: 07/15/2017 Status: F Source: [place] 9:50 AM [facility] REPOSITORY TYPE CODE TESTS RESULT OUT OF [...] 48 Performed By: #### L500.4050, L500.4100 #### [facility] [address] [place], [address] ALLERGIES ALLERGIES DATE TYPE / NAME / CODE REACTION SEVERITY SOURCE CODE 04/26/2018 Drug hydromorphone EXTREME LETHARGY Unknown [facility] Allergy/41 HCl/[id number](RXNO Community [id number]([facility]) [facility]) Repository 04/26/2018 Drug codeine/[id number]( DIFFICULTY SV [facility] Allergy/41 RXNORM) BREATHING/THROAT Community [id number]([facility]) Repository ENCOUNTERS ENCOUNTERS ADMIT/DISCHARGE ACCOUNT ADMITTING ENCOUNTER LOCATION SOURCE NUMBER CLASS 04/26/2018 [id number] Ambulatory [facility] ing:PAVLAB Repository 04/26/2018/ [id number] Ambulatory BMSBuilding:B Tristan [address] 3 [facility] Repository 03/22/2018/ [id number] Mitra Augustin Ambulatory Tristan Tristan 8 3 Karlene [facility] ing:WB3Heto: Repository UV125Crm: 1 03/22/2018 [id number] Mitra Augustin Ambulatory BMSBuilding:B Amberson 6 [place].[facility] Repository 03/22/2018 [id number] Mitra Augustin Ambulatory BMSBuilding:B Tristan 8 [place] MS.[facility] Repository 03/22/2018 [id number] Mitra Augustin Ambulatory BMSBuilding:B Amberson 9 [place] MS.PAP [facility] Hospital Repository 03/22/2018 [id number] Mitra Augustin Ambulatory BMSBuilding:B Amberson 8 [place] MS.CF.[facility] Repository 03/22/2018 [id number] Demetria, Mitra Ambulatory BMSBuilding:B Amberson 5 [place] MS.[facility] Repository 03/22/2018 [id number] Mitra Augustin Ambulatory BMSBuilding:B Tristan 3 [place] MS.CF.[facility] Repository 01/27/2018/ [id number] Ambulatory BMSBuilding:B Amberson 8 0 MS.[facility] Repository 12/23/2017 [id number] Ambulatory Amberson Amberson 6 [facility] Hospital ing:CT Repository 12/13/2017 [id number] Ambulatory Tristan Tristan 4 [facility] Hospital ing:PAVLAB Repository 12/13/2017/ [id number] Ambulatory BMSBuilding:B Amberson 8 2 MS.[facility] Repository 11/22/2017 [id number] Ambulatory Amberson Tristan 0 [facility] Hospital ing:EN Repository 10/19/2017/ [id number] Ambulatory BMSBuilding:B Amberson 8 8 MS.A [facility] Hospital Repository 10/14/2017 [id number] Ambulatory Tristan Tristan 3 [facility] ing[facility]OPBI Repository 10/12/2017 [id number] Ambulatory Tristan Amberson 0 [facility] ing:LAB Repository 08/03/2017 [id number] Ambulatory BMS Tristan 4 [facility] Hospital Repository 07/27/2017 [id number] Ambulatory BMSBuilding:B Tristan 8 MS.[facility] Hospital Repository 07/15/2017 [id number] Ambulatory Amberson Tristan 8 [facility] Hospital ing:LAB Repository PAYERS PAYERS ENCOUNTER GUARANTOR PAYER SUBSCRIBER SOURCE 04/26/2018 CHUCK Thorpe Primary Insurance:O CHUCK Hudson [id number] CANAL MEDICAREPolicy MARKIEOB: [facility] Number: [id number] [id number] [place]ository [place] [address]Mmh: Date:3451-36-55KF [address] [place] [address] () [address]QA: 04/26/2018 Secondary NOT GIVENUNK Amberson Insurance:SELF PAY [facility] Number: Effective Repository Date:2018-04-26 04/26/2018 CHUCK R Primary Insurance:MMO CHUCK R Tristan [id number] CANAL MEDICAREPolicy HUSKDOB: [facility] Number: [id number] [id number] Repository [place] [address]Gyd: Date:1709-43-92JL [address] [place] [address] () [phone]: 04/26/2018 Secondary NOT GIVENUNK Tristan Insurance:SELF PAY [facility] Number: Effective Repository Date:2018-04-25 03/22/2018 CHUCK R Primary Insurance:MMO CHUCK R Tristan [id number] CANAL MEDICARECopper Springs East Hospitalicy HUSKDOB: [facility] Number: [id number] East [place] [id number] Repository [place] [address]Izk: Date:4842-12-80XE [address] [place] [address] () [phone]: 03/22/2018 Secondary NOT GIVENUNK Amberson Insurance:SELF PAY [facility] Number: Effective Repository Date:2018-03-22 03/22/2018 CHUCK R Primary Insurance:MMO CHUCK R Amberson [id number] [facility] MEDICAREClarks Summit State HospitalKDOB: [facility] Number: [id number] [facility] [place] [id number] Repository [place] [address]Njj: Date:2982-54-67ZB [address] [place] [address] () [address]VG: 03/22/2018 Secondary NOT GIVENUNK Tristan Insurance:SELF PAY [facility] Number: Effective Repository Date:2018-03-22 03/22/2018 CHUCK R Primary Insurance:MMO CHUCK R Tristan [id number] CANAL MEDICAREPolicy [facility]: [facility] Number: [id number] East [place] [id number] Repository [place] [address]Ehn: Date:9188-38-22RY [address] [place] [address] () [address]YV: 03/22/2018 Secondary NOT GIVENUNK Amberson Insurance:SELF PAY [facility] Number: Effective Repository Date:2018-03-22 03/22/2018 CHUCK R Primary Insurance:MMO CHUCK R Amberson [id number] CANAL MEDICARECopper Springs East Hospitalicy [facility]OKD[facility]: [facility] Number: [id number] East [place] [id number] Repository [place] [address]Gmq: Date:0809-53-48RG [address] [place] [address] () [phone]: 03/22/2018 Secondary NOT GIVENUNK Amberson Insurance:SELF PAY [facility] Number: Effective Repository Date:2018-03-22 03/22/2018 CHUCK R Primary Insurance:MMO CHUCK R Amberson [id number] CANAL MEDICARECopper Springs East Hospitalicy [facility]: [facility] Number: [id number] East [place] [id number] Repository [place] [address]Seg: Date:6166-86-05LZ [address] [place] [address] () [phone]: 03/22/2018 Secondary NOT GIVENUNK Amberson Insurance:SELF PAY [facility] Number: Effective Repository Date:2018-03-22 03/22/2018 CHUCK R Primary Insurance:MMO CHUCK R Tristan [id number] CANAL MEDICARECopper Springs East HospitalicNemours Children's HospitalKDOB: [facility] Number: [id number] East [place] [id number] Repository [place] [address]Ruo: Date:1939-22-96MI [address] [place] [address] () [phone]: 03/22/2018 Secondary NOT GIVENUNK Amberson Insurance:SELF PAY [facility] Number: Effective Repository Date:2018-03-22 03/22/2018 CHUCK R Primary Insurance:MMO CHUCK R Tristan [id number] [facility] MEDICAREClarks Summit State HospitalKDOB: [facility] Number: [id number] East [place] [id number] Repository [place] [address]Bwg: Date:0870-41-42TC [address] [place] [address] () [phone]: 03/22/2018 Secondary NOT GIVENUNK Tristan Insurance:SELF PAY [facility] Number: Effective Repository Date:2018-03-22 01/27/2018 CHUCK R Primary Insurance:MMO CHUCK R Tristan [id number] [facility] MEDICAREClarks Summit State HospitalKDOB: [facility] Number: [id number] [facility] [place] [id number] Repository [place] [address]Yss: Date:4523-21-62AY [address] [place] [address] () [phone]: 01/27/2018 Secondary NOT GIVENUNK Amberson Insurance:SELF PAY [facility] Number: Effective Repository Date:2018-01-25 12/23/2017 CHUCK R Primary Insurance:MMO CHUCK R Tristan [id number] [facility] MEDICARECopper Springs East Hospitalicy [facility] R[facility]CHOKDOB: [facility] Number: [id number] East [place] [id number] Repository [place] [address]Gvf: Date:6595-86-66YH [address] [place] [address] () [phone]: 12/23/2017 Secondary NOT GIVENUNK Tristan Insurance:SELF PAY [facility] Number: Effective Repository Date:2017-12-20 12/13/2017 CHUCK R Primary Insurance:MMO CHUCK R Amberson [id number] CANAL MEDICAREPolicy HUSKDOB: [facility] Number: [id number] East [place] [id number] Repository [place] [address]Liu: Date:5480-58-42NZ [address] [place] [address] () [phone]: 12/13/2017 Secondary NOT GIVENUNK Tristan Insurance:SELF PAY [facility] Number: Effective Repository Date:2017-12-13 12/13/2017 CHUCK R Primary Insurance:MMO CHUCK R Tristan [id number] [facility] MEDICAREPolicy HUSKDOB: [facility] Number: [id number] East [place] [id number] Repository [place] [address]Qeo: Date:0799-37-31MR [address] [place] [address] () [phone]: 12/13/2017 Secondary NOT GIVENUNK Amberson Insurance:SELF PAY [facility] Number: Effective Repository Date:2017-12-03 11/22/2017 CHUCK R Primary Insurance:MMO CHUCK R Tristan [id number] [facility] MEDICAREPolicy HUSKDOB: [facility] Number: [id number] East [place] [id number] Repository [place] [address]Fjq: Date:7789-27-46TX [address] [place] [address] (HP) [phone]: 11/22/2017 Secondary NOT GIVENUNK Amberson Insurance:SELF PAY [facility] Number: Effective Repository Date:2017-10-19 10/19/2017 CHUCK R Primary Insurance:MMO CHUCK R Tristan [id number] [facility] MEDICAREPolicy HUSKDOB: [facility] Number: [id number] East [place] [id number] Repository [place] [address]Mwm: Date:8520-23-49YJ [address] [place] [address] () [phone]: 10/19/2017 Secondary NOT GIVENUNK Amberson Insurance:SELF PAY [facility] Number: Effective Repository Date:2017-10-19 10/14/2017 CHUCK R Primary Insurance:MMO CHUCK R Amberson [id number] CANAL MEDICAREPolicy HUSKDOB: [facility] Number: [id number] East [place] [id number] Repository [place] [address]Kps: Date:1403-07-63AX [address] [place] [address] () [address]YK: 10/14/2017 Secondary NOT GIVENUNK Tristan Insurance:SELF PAY [facility] Number: Effective Repository Date:2017-09-27 10/12/2017 CHUCK R Primary Insurance:MMO CHUCK R Amberson [id number] [place] MEDICAREClarks Summit State HospitalKDOB: [facility] Number: [id number] Del[facility] ER [id number] Repository [place] [address]Tsy: Date:9692-09-43RZ [address] [place] [address] () [address]RU: 10/12/2017 Secondary NOT GIVENUNK Tristan Insurance:SELF PAY [facility] Number: Effective Repository Date:2017-10-12 08/03/2017 CHUCK R Primary Insurance:MMO CHUCK R Tristan [id number] [place] MEDICARECopper Springs East Hospitalicy [facility] R[facility]CHOKDOB: [facility] Number: [id number] Deltona ER [id number] Repository [place] [address]Qrk: Date:4842-96-87ED [address] [place] [address] () [address]WU: 08/03/2017 Secondary NOT GIVENUNK Tristan Insurance:SELF PAY [facility] Number: Effective Repository Date:2017-08-03 07/27/2017 CHUCK R Primary Insurance:MMO CHUCK R Tristan [id number] [place] MEDICARECopper Springs East Hospitalicy [facility] RANCHOKDOB: [facility] Number: [id number]. Vincent's [facility] [place], [id number] Repository [place] [address]Abk: Date:6228-62-39HW [address] [place] [address] () [phone]: 07/27/2017 Secondary NOT GIVENUNK Tristan Insurance:SELF PAY [facility] Number: Effective Repository Date:2017-07-27 07/15/2017 CHUCK Thorpe Primary Insurance:O CHUCK Hudson [id number] [place] MEDICAREPolicy HUSKDOB: [facility] Number: [id number]. Vincent's Medical Center [place], [id number] Repository [place] [address]Lcb: Date:7016-17-14QL [address] [place] [address] () [phone]: 07/15/2017 Secondary NOT GIVENUNK Tristan Insurance:SELF PAY [facility] Number: Effective Repository Date:2017-07-15
== END ==
PROVIDERS: Family Provider Family Medicine; PCP Family Medicine; Referring Provider Nurse Practitioner Acute Care; Visit Provider Nurse Practitioner Acute Care
DX: D72.1 Eosinophilia (principal)
CPT/HCPCS: 36415; 85025

== ENCOUNTER → 2018-07-28 09:15 | Outpatient (CLI) | payer MEDICARE, SELFPAY ==
[2018-07-28 09:05] VITALS: BMI 27.1
--- NOTE | 2018-07-28 09:52 | BD_ITS ---
STUDY: DUAL ENERGY X-RAY ABSORPTIOMETRY / DXA REASON FOR EXAM: Female, 67 years old. Early menopause. Loss of height. TECHNIQUE: Bone Mineral Density (BMD) measurements of lumbar spine and bilateral hips were obtained. COMPARISON: None. FINDINGS: Lumbar Spine (L1-L4): g/cm2 (0.710) / T-score (-4.1) / Z-score (-2.5) Findings are suggestive of osteoporosis with a high fracture risk. Left Femur Total: g/cm2 (0.786) / T-score (-1.8) / Z-score (-0.4) Left Femoral Neck: g/cm2 (0.655) / T-score (-2.8) / Z-score (-1.2) Right Femur Total: g/cm2 (0.859) / T-score (-1.2) / Z-score (0.1) Right Femoral Neck: g/cm2 (0.817) / T-score (-1.6) / Z-score (0.0) BD/Dexa Bone Density Study IMPRESSION: The patient is considered osteoporotic as outlined below according to World Merlin Organization (WHO) criteria with a high fracture risk. Reference Information: The T-score is the number of standard deviations above or below the standard which is normal for young adults at their peak bone mineral density. The World Health Organization (WHO) interprets the T-scores as follows: Above -1 Normal bone density Between -1 and -2.5 Osteopenia Equal to / or below -2.5 Osteoporosis As a practical clinical guideline, osteopenia may be graded as follows: Mild -1 through -1.5 Moderate -1.6 through -2.0 Severe -2.1 through -2.4 The Z-score is the number of standard deviations above or below age-matched controls. A Z-score of less than -1.5 would be considered abnormal. References: 1. NIH Osteoporosis and Related Bone Diseases http://www.osteo.org 2. International Society for Clinical Densitometry http://www.iscd.org 3. National Osteoporosis Foundation http://www.nof.org Electronically Signed: Thomas Arvizu, at 15:34 EDT , Service support ,
[2018-07-28 10:05] LABS: Hematocrit 38.5 % (37-47); Hemoglobin 12.9 g/dl (12.0-15.0); Mean Corp Hgb Conc 33.5 g/gl (32-36); Mean Corpuscular Hgb 30.2 pg (27.0-32.0); Mean Corpuscular Volume 90.2 fL (81-99); Mean Platelet Vol. 9.7 fl (6.2-12.0); Platelet Count 340 K/mm3 (150-450); RBC Distribution Width CV 13.7 % (11.6-14.6); RBC Distribution Width SD 44.8 fl (35.1-43.9); Red Blood Count 4.27 M/mm3 (4.2-5.4); Scan Indicated on CBC? Y/N NO; White Blood Count 5.4 K/mm3 (4.4-11.0)
[2018-07-28 10:34] LABS: ALB/GLOB Ratio 1.4 RATIO (0.9-2.4); AST(SGOT) 35 U/L (15-37); Alanine Aminotransfer ALT/SGPT 48 U/L (13-56); Albumin, Serum 4.1 g/dL (3.2-5.0); Alkaline Phosphatase 112 U/L (45-117); Anion Gap 7 (5-15); BUN 11 mg/dL (7-18); Calcium,Total 8.8 mg/dL (8.5-10.1); Chloride 103 mmol/L (98-107); Cholesterol 158 mg/dL (200); Creatinine, Serum 0.92 mg/dL (0.55-1.02); EST Glomerular Filtration Rate 65 mL/min (>60); Est Glom Filt Rate - Afr Amer 79 mL/min (>60); Glucose 153 mg/dL (74-106); High Density Lipoprotein 60 mg/dL; Potassium 3.3 mmol/L (3.5-5.1); Protein, Total 7.1 g/dL (6.4-8.2); Sodium Level 139 mmol/L (136-145); Triglycerides 347 mg/dL; Very Low Density Lipoprotein 69 mg/dL (5-40)
[2018-07-28 10:46] LABS: Vitamin D,25 Hydroxy 17.4 ng/mL (29.95-100.01)
== END ==
PROVIDERS: Family Provider Family Medicine; PCP Family Medicine; Referring Provider Family Medicine; Visit Provider Family Medicine
DX: M81.8 Other osteoporosis without current pathological fracture (principal); I50.30 Unspecified diastolic (congestive) heart failure; K21.9 Gastro-esophageal reflux disease without esophagitis; E78.2 Mixed hyperlipidemia; Z79.899 Other long term (current) drug therapy
CPT/HCPCS: 36415; 77080; 80053; 80061; 82306; 85027

== ENCOUNTER 2018-07-30 11:42 | Emergency (ER) | payer MEDICARE, SELFPAY ==
[2018-07-30 11:42] VITALS: BP 167/75; PULSE 108; RESP 16; TEMP 36.3; O2SAT 99; BMI 27.6; BMI 28.3
[2018-07-30 11:56] VITALS: PULSE 100; RESP 16
--- NOTE | 2018-07-30 12:19 | RAD_ITS ---
STUDY: X-RAY - LEFT HUMERUS REASON FOR EXAM: Female, 67 years old. Status post fall. TECHNIQUE: view(s) of the humerus. COMPARISON: None. FINDINGS: There is a comminuted slightly displaced intra-articular fracture of the humeral head and surgical neck of the proximal left humerus. There is a side plate and screws securing previous fracture of the humeral shaft. There is no evidence of dislocation. There is no demonstrated soft tissue abnormality. RAD/Humerus min 2 Views IMPRESSION: Fracture of the proximal left humerus. Electronically Signed: Martin Ludwig MD at 12:46 EDT Tel , Service support ,
--- NOTE | 2018-07-30 13:01 | ED.DCSUM_ITS ---
- ER Visit Summary Date of Service: 07/30/18 Chief Complaint: Left shoulder injury History of Present Illness: The patient is a 67 F who presents the emergency department following a fall. Patient was bent over and the wind blew the door striking her from behind and she fell onto her left shoulder. She notes pain and limited range of motion of the left shoulder. She states that in 2013 she had ORIF of the left humerus with Dr. Morin. Patient denies any other injuries Physical Examination: Afebrile vital signs stable Gen: Well-nourished well-developed Head: Normocephalic atraumatic Eyes: Perrl EOMI ENT: TMs clear no rhinorrhea moist mucous membranes Neck: Supple no lymphadenopathy no JVD nontender CVS: Regular rate rhythm no murmurs normal S1-S2 Respiratory: No distress clear to auscultation bilaterally chest nontender Abdomen: Soft nontender nondistended normal bowel sounds no masses Back: Nontender Extremity: Unable to move left shoulder. Tender to palpation neurovascular intact distally Skin: Normal color no rash Neuro: alert orientated ?3 CN II-XII intact normal strength sensation reflexes gait cerebellar Psych: Normal affect normal mood Test Results: X-rays of the humerus reveal the proximal humerus fracture orthopedic hardware in place and stable Emergency Department Course and Treatment: Patient was placed in a sling. She was given OxyIR and a prescription for same. She will follow-up with Dr. Denise at [facility]. Because this is an acutely painful condition and I believe she will need most likely more than 12 tablets of Percocet I am going to write for 20 to ensure that she has enough pain control to get to orthopedics in follow-up. I understand this may violate the current morphine equivalents recommendations. However I feel it is in the patient's best interest Impression: 1. Proximal left humerus fracture This note was generated with Giferent dictation software. It may contain incorrect words, spelling, and punctuation that were not noted in review of the chart prior to signing ED Disposition - Plan for ED Patient: Disposition: Home or Assisted Living Instructions: ED Fx Shoulder Prescriptions: Oxycodone HCl/Acetaminophen [Percocet 5/325] 1 tab PO Q6H PRN PRN 5 Days #20 tab PRN Reason: pain Referrals: Nely Herring DO [STAFF PHYSICIAN] - (call to arrange follow up)
[2018-07-30] MEDS: oxyCODONE 5 MG Tablet 10 MG PO (13:19)
--- NOTE | 2018-08-01 08:24 | ED.RN ---
Pt's called in to inquire about med. Pt had been taking percocet for pain and was experiencing itching. She was instructed to stop med and physicians on duty suggested tylenol or ibuprofen for pain. The also asked for another ortho doc option. He was given number to lorenzo osorio.
== END 2018-07-30 13:22 | disposition home or self-care (01) ==
PROVIDERS: Emergency Provider Emergency Medicine; Family Provider Family Medicine; PCP Family Medicine
DX: S42.202A Unspecified fracture of upper end of left humerus, initial encounter for closed fracture (principal); W19.XXXA Unspecified fall, initial encounter; Y93.89 Activity, other specified; Y92.9 Unspecified place or not applicable; J45.909 Unspecified asthma, uncomplicated
CPT/HCPCS: 73060; 99283

== ENCOUNTER → 2018-08-30 14:53 | Outpatient (CLI) | payer MEDICARE, SELFPAY ==
[2018-08-30 14:50] VITALS: BMI 26.3
--- NOTE | 2018-08-30 14:54 | RAD_ITS ---
STUDY: X-RAY - LEFT HUMERUS REASON FOR EXAM: Female, 67 years old. Postop TECHNIQUE: 2 view(s) of the humerus. COMPARISON: None. FINDINGS: Stable hardware in the mid humeral diaphysis. Stable fused fracture of the mid humeral diaphysis. Healing comminuted fracture of the proximal humerus with stable alignment. No evidence of hardware failure. No osteolytic lesions are seen. Multiple remote left rib deformities. RAD/Humerus min 2 Views IMPRESSION: No acute osseous abnormality. Healing comminuted fracture of the proximal humerus with stable alignment. Electronically Signed: Ross Pascual MD at 16:36 EDT Tel , Service support ,
== END ==
PROVIDERS: Family Provider Family Medicine; PCP Family Medicine; Referring Provider Orthopaedic Surgery; Visit Provider Orthopaedic Surgery
DX: S42.302A Unspecified fracture of shaft of humerus, left arm, initial encounter for closed fracture (principal)
CPT/HCPCS: 73060

== ENCOUNTER → 2018-09-16 13:48 | Outpatient (CLI) | payer MEDICARE, SELFPAY ==
[2018-08-30 14:50] VITALS: BMI 26.3
--- NOTE | 2018-09-16 13:53 | CT_ITS ---
STUDY: LEFT SHOULDER CT SCAN REASON FOR EXAM: Female, 67 years old. Left humerus fracture. RADIATION DOSAGE (If Supplied By Facility): CTDIvol = ( 29.47 ) mGy, DLP = ( 797.22 ) mGycm. Individualized dose optimization techniques were used for this CT.? TECHNIQUE: Axial multidetector CT scan of the left shoulder. Coronal and sagittal reconstructions. 3-D reconstructions. COMPARISON: 08/30/2018. FINDINGS: Healing comminuted slightly impacted left proximal humerus fracture with involvement of the surgical neck, greater tuberosity and lesser tuberosity. No glenohumeral dislocation. No acute cortical destruction. Callus identified. Surgical fixation of the proximal humeral shaft with hardware intact/well aligned. No postsurgical complication. Chronic fourth and fifth left rib fractures. Normal visualized left lung. Vascular calcifications. Visualized portions of the left upper abdomen unremarkable. No significant soft tissue swelling. Small left glenohumeral joint effusion. No acute muscle abnormality. CT/Extremity Upper without Contra IMPRESSION: Healing left comminuted slightly impacted left proximal humerus fracture Uncomplicated left proximal humerus shaft surgical fixation hardware Chronic healed fourth and fifth left rib fractures Small left glenohumeral joint effusion Electronically Signed: Juan A Jimenez DO at 11:27 EDT Tel , Service support ,
--- NOTE | 2018-09-16 13:57 | CT_ITS ---
STUDY: LEFT SHOULDER CT SCAN REASON FOR EXAM: Female, 67 years old. Left humerus fracture. RADIATION DOSAGE (If Supplied By Facility): CTDIvol = ( 29.47 ) mGy, DLP = ( 797.22 ) mGycm. Individualized dose optimization techniques were used for this CT.? TECHNIQUE: Axial multidetector CT scan of the left shoulder. Coronal and sagittal reconstructions. 3-D reconstructions. COMPARISON: 08/30/2018. FINDINGS: Healing comminuted slightly impacted left proximal humerus fracture with involvement of the surgical neck, greater tuberosity and lesser tuberosity. No glenohumeral dislocation. No acute cortical destruction. Callus identified. Surgical fixation of the proximal humeral shaft with hardware intact/well aligned. No postsurgical complication. Chronic fourth and fifth left rib fractures. Normal visualized left lung. Vascular calcifications. Visualized portions of the left upper abdomen unremarkable. No significant soft tissue swelling. Small left glenohumeral joint effusion. No acute muscle abnormality. CT/Coronals Sag Multi Obl 3-D Rec IMPRESSION: Healing left comminuted slightly impacted left proximal humerus fracture Uncomplicated left proximal humerus shaft surgical fixation hardware Chronic healed fourth and fifth left rib fractures Small left glenohumeral joint effusion Electronically Signed: Juan A Jimenez DO at 11:27 EDT Tel , Service support ,
== END ==
PROVIDERS: Family Provider Family Medicine; PCP Family Medicine; Referring Provider Orthopaedic Surgery; Visit Provider Orthopaedic Surgery
DX: S42.202A Unspecified fracture of upper end of left humerus, initial encounter for closed fracture (principal)
CPT/HCPCS: 73200; 76377

== ENCOUNTER → 2018-10-12 14:41 | Outpatient (CLI) | payer MEDICARE, SELFPAY ==
[2018-10-12 14:12] VITALS: BMI 28.3
--- NOTE | 2018-10-12 14:43 | RAD_ITS ---
STUDY: X-RAY - HUMERUS REASON FOR EXAM: Female, 67 years old. Post op TECHNIQUE: 3 view(s) of the humerus. COMPARISON: CT dated 09/16/2018 FINDINGS: There are stable postsurgical changes from open reduction and internal fixation of the left humerus. There is a plate and screws transfixing a healing fracture of the midshaft of the left humerus. The hardware is intact and alignment is satisfactory. There is a stable comminuted, impacted fracture of the left humeral neck. There is no dislocation. There are no radiodense foreign bodies. RAD/Humerus min 2 Views IMPRESSION: Stable postsurgical changes from ORIF of the left mid humerus with intact hardware in satisfactory alignment. Stable comminuted, impacted fracture of the left humeral neck. Electronically Signed: Erick Demarco, at 20:16 EDT Tel , Service support ,
== END ==
PROVIDERS: Family Provider Family Medicine; PCP Family Medicine; Referring Provider Physician Assistant; Visit Provider Physician Assistant
DX: S42.202A Unspecified fracture of upper end of left humerus, initial encounter for closed fracture (principal)
CPT/HCPCS: 73060

== ENCOUNTER → 2019-01-12 09:47 | Outpatient (CLI) | payer MEDICARE, SELFPAY ==
[2019-01-12 09:35] VITALS: BMI 26.3
[2019-01-12 10:44] LABS: Anion Gap 6 (5-15); BUN 16 mg/dL (7-18); Calcium,Total 8.8 mg/dL (8.5-10.1); Chloride 103 mmol/L (98-107); EST Glomerular Filtration Rate 59 mL/min (>60); Est Glom Filt Rate - Afr Amer 71 mL/min (>60); Glucose 120 mg/dL (74-106); Potassium 3.7 mmol/L (3.5-5.1); Sodium Level 138 mmol/L (136-145)
== END ==
PROVIDERS: Family Provider Family Medicine; PCP Family Medicine; Referring Provider Family Medicine; Visit Provider Family Medicine
DX: M81.8 Other osteoporosis without current pathological fracture (principal); R60.0 Localized edema; Z79.899 Other long term (current) drug therapy
CPT/HCPCS: 36415; 80048; 82306

== ENCOUNTER → 2019-01-31 10:49 | Outpatient (CLI) | payer MEDICARE, SELFPAY ==
[2019-01-12 09:35] VITALS: BMI 26.3
--- NOTE | 2019-01-31 10:52 | VDLE_ITS ---
Reason For Study: pain RIGHT LEFT GSV is normal. CFV is compressible, spontaneous, phasic, CFV is compressible, spontaneous, phasic, competent, and demonstrates normal competent and demonstrates normal augmentation. augmentation. FV is compressible, spontaneous, phasic, competent and demonstrates normal augmentation. POP V is compressible, spontaneous, phasic, competent and demonstrates normal augmentation. T/P Trunk is compressible. PTV is compressible. RT PerV is compressible. Procedure Exam performed in department. The exam was diagnostic. A preliminary report was called and/or faxed to Effie Boyd. Interpretation Summary Deep veins of the right lower extremity are patent and compressible segmentally. There is no evidence of right lower extremity deep vein thrombosis. Valvular competence appears intact within the proximal deep venous system on the right . The right great saphenous vein appears patent and compressible segmentally. Ordering Physician: EFFIE BOYD Referring Physician: [facility] , Out of Performed By: Gold Dillon, RVT
== END ==
PROVIDERS: Family Provider Family Medicine; PCP Family Medicine
DX: M79.661 Pain in right lower leg (principal)
CPT/HCPCS: 93971

== ENCOUNTER 2019-07-17 14:15 | Emergency (ER) | payer MEDICARE, SELFPAY ==
[2019-01-12 09:35] VITALS: BMI 26.3
[2019-07-17 14:20] VITALS: BP 133/62; PULSE 131; RESP 30; TEMP 37.1; O2SAT 97; BMI 27.6
--- NOTE | 2019-07-17 14:37 | RAD_ITS ---
STUDY: X-RAY CHEST REASON FOR EXAM: Female, 68 years old. Sob fever that started yesterday. TECHNIQUE: Single AP portable view of the chest. COMPARISON: Comparison is made with prior study of March 22, 2018. FINDINGS: EKG electrodes are seen. There is evidence of a right pleural effusion. Inhomogeneous appearance of the underlying lung suggestive of possible lung abscesses. Correlation with the CT scan of the thorax is recommended. Normal size heart. Normal mediastinum and jt. Normal visualized pulmonary arteries. Normal visualized aortic arch and descending thoracic aorta. Normal visualized thoracic spine. Degenerative changes of the left shoulder. There is no demonstrated abnormality of the visualized soft tissue structures of the upper abdomen. RAD/Chest 1 View (Portable) IMPRESSION: New right pleural effusion with inhomogenous appearance of the right pulmonary parenchyma suggestive of abscesses or cavitary lesions as described. Correlation with a CT scan of the thorax is recommended. Electronically Signed: Thomas Arvizu, at 16:04 EDT , Service support ,
--- NOTE | 2019-07-17 14:38 | EKG12_ITS ---
Test Reason : FEVER Blood Pressure : / mmHG Vent. Rate : 130 BPM Atrial Rate : 130 BPM P-R Int : 128 ms QRS Dur : 072 ms QT Int : 298 ms P-R-T Axes : 011 021 057 degrees QTc Int : 438 ms Sinus tachycardia Otherwise normal ECG Confirmed by JANAE NOE ([id number]), news videotape editor SUNDEEP DEVRIES ([id number]) on 07/20/2019 10:25:51 AM Referred By: RU Confirmed By:JANAE NOE
[2019-07-17 14:52] LABS: Absolute Lymphocyte Count 0.73 X10^3/uL (0.83-4.51); Absolute Neutrophil Count 15.2 X10^3/uL (2.0-7.7); Basophil# 0.08 X10^3/uL; Basophil% 0.5 % (0-1); Eosinophil# 0.04 X10^3/uL; Eosinophils% 0.2 % (0-5); Hemoglobin 9.4 g/dL (12.0-15.0); Lymphocyte # 0.73 X10^3/ul (4.0); Lymphocyte % 4.2 % (19-41); Mean Corp Hgb Conc 32.4 g/dL (32-36); Mean Corpuscular Hgb 29.1 pg (27.0-32.0); Mean Corpuscular Volume 89.8 fL (81-99); Mean Platelet Vol. 10.5 fl (6.2-12.0); Monocyte# 0.91 X10^3/uL; Monocyte% 5.3 % (0-10); NRBC Flagged by Analyzer 0 % (0-5); Neutrophil # 15.18 X10^3/uL (2.7-7.7); Neutrophil % 87.9 % (47-70); POSITIVE MORPHOLOGY YES; Platelet Count 423 K/mm3 (150-450); RBC Distribution Width CV 14.1 % (11.6-14.6); RBC Distribution Width SD 46.2 fl (35.1-43.9); Red Blood Count 3.23 M/mm3 (4.2-5.4); White Blood Count 17.3 K/mm3 (4.4-11.0)
[2019-07-17 15:10] LABS: Anion Gap 7 (5-15); BUN 16 mg/dL (7-18); BUN/Creat Ratio 18.3 RATIO (10-20); Calcium,Total 8.7 mg/dL (8.5-10.1); Chloride 98 mmol/L (98-107); Creatinine, Serum 0.87 mg/dL (0.55-1.02); EST Glomerular Filtration Rate 68 mL/min (>60); Est Glom Filt Rate - Afr Amer 83 mL/min (>60); Estimated Creatinine Clearance 53.44 ml/min; Glucose 153 mg/dL (74-106); Potassium 4.5 mmol/L (3.5-5.1); Sodium Level 132 mmol/L (136-145)
[2019-07-17 15:11] LABS: Differential Indicated SCAN CRITERIA MET
[2019-07-17] MEDS: 0.9% Normal Saline 1,000 ML 1000 ML IV (15:40)
[2019-07-17 15:43] LABS: Mucous, Urine 0 SEEN /hpf (<or=2+); Red Blood Cells-Urine 0 SEEN /hpf (0-5)
[2019-07-17] MEDS: Ondansetron 4 MG/2 ML Vial IV ×2 (15:50→19:39)
[2019-07-17 15:53] LABS: Color, Urine Yellow (Yellow); Glucose, Dipstick Normal (Normal); Ketone-Dipstick 5 mg/dl (Negative); Leukocyte Esterase-Dipstick 25 /ul (Negative); Nitrite-Dipstick Negative (Negative); Occult Blood-Urine 25 /ul (Negative); Protein-Dipstick 30 mg/dl (Negative); Urine Bilirubin Dipstick Negative (Negative); Urine Clarity Cloudy (Clear); Urine Urobilinogen 1 mg/dl (Normal)
[2019-07-17 16:04] LABS: Amorphous Sediment 1+; Bacteria RARE /hpf (None Seen); Squamous Epithelial Cells - UA 0-5 SEEN /hpf (5-10); White Blood Cells 0-5 SEEN /hpf (0-5)
[2019-07-17 16:09] LABS: Lactic Acid 1.1 mmol/L (0.4-1.9)
--- NOTE | 2019-07-17 16:10 | CT_ITS ---
STUDY: CT CHEST WITHOUT CONTRAST REASON FOR EXAM: Female, 68 years old. Empyema, SOB, recently hospitalized for pneumonia, negative Covid, N/V/D RADIATION DOSAGE (If Supplied By Facility): CTDIvol = ( 16.18 ) mGy, DLP = ( 525.56 ) mGycm TECHNIQUE: Transaxial imaging was performed without the administration of intravenous contrast material. Individualized dose optimization techniques were used for this CT. COMPARISON: 12/23/2017 FINDINGS: Mild bilateral apical scarring. Large thick-walled right-sided pleural effusion with mass effect and large air-filled space is worrisome for empyema. This is associated with significant right middle lobe and right lower lobe collapse. Normal heart and pericardium. Normal mediastinum. Normal hilar regions. Normal unenhanced pulmonary arteries. Normal aorta arch and descending thoracic aorta. Mild compression fracture of T11 which is unchanged. Diffusely decreased attenuation of the hepatic parenchyma consistent with fatty infiltration. CT/Chest without Contrast IMPRESSION: Large right-sided empyema with significant right lung collapse. Electronically Signed: Braulio Cruz MD at 17:17 EDT Tel , Service support ,
[2019-07-17 16:15] LABS: Differential Comment SCANNED
--- NOTE | 2019-07-17 16:46 | ED.RN ---
spoke with pt's for update.
[2019-07-17] MEDS: 0.9% Normal Saline 1,000 ML 150 ML IV (16:51)
[2019-07-17 16:52] VITALS: BP 135/63; PULSE 122; RESP 26; TEMP 37.7; O2SAT 98
--- NOTE | 2019-07-17 17:25 | ED.VISSUMM ---
- ER Visit Summary Date of Service: 07/17/19 Chief Complaint: [Weak, cough, short of breath] History of Present Illness: The patient is a 68 F [presents to the emergency department with symptoms that started worsening 3 or 4 days ago. Patient apparently was admitted on June 28 to [facility] with bilateral pneumonia. Patient apparently was ruled out for novel coronavirus. Patient was sent home with Augmentin. 3 days ago she started having temperature again up to 103. Normally on 2 L nasal cannula at home. Patient has had some diarrhea about 3 or 4 times a day for the last week. She had decreased urine output. Patient has history of CHF, hypertension, asthma, and chronic kidney disease. Patient's had prior hysterectomy.] Physical Examination: [HEENT-PERRLA, EOMI. Cranial nerves II through XII grossly intact. TMs clear. Mucous membranes moist. No adenopathy. Cardiovascular-regular and tachycardic. No murmurs auscultated. Lungs-diminished breath sounds on the right with coarse rhonchi. Patient has some faint expiratory wheezes. Abdomen-normoactive bowel sounds, soft, nontender, no rebound or rigidity, no peritoneal signs. Extremities-intact ?4, normal range of motion, normal pulses, atraumatic] Test Results: [CBC with differential obtained showed a white count 17.3, hemoglobin 9.4, hematocrit 29, plates 423. Chemistries unremarkable. Troponin is less than 0.015. EKG obtained showed sinus tachycardia with a ventricular rate of 130 bpm with no acute ST segment changes. Chest x-ray obtained showed severe lung infection with suspected abscess in the right lung therefore they recommended obtaining a CT scan of the chest. CT scan of the chest was obtained] without contrast as her IV was in her right EJ and they would not inject contrast through it. The CT showed a large right-sided empyema with significant right lung collapse. Emergency Department Course and Treatment: [Patient had an IV line established and was given a liter normal same fluid bolus. Patient was started on Zosyn and vancomycin.] Treatment Plan: [Given findings and concern that patient may require cardiothoracic surgery which is not available at [place] recommended transfer to tertiary care center. Patient in agreement and would like to go to [facility].] Disposition: Transfer [] Impression: [Empyema right lung] This note was generated with Dragon dictation software. It may contain incorrect words, spelling, and punctuation that were not noted in review of the chart prior to signing ED Disposition - Plan for ED Patient: Referrals: Andrew Simms MD [Primary Care Provider] -
[2019-07-17] MEDS: Vancomycin IV 1,000 MG/200 ML BAG 200 MG IV (17:42)
[2019-07-17 18:12] VITALS: BP 118/76; PULSE 124; RESP 30; TEMP 37.5; O2SAT 98
[2019-07-17 18:53] VITALS: BP 135/64; PULSE 121; RESP 28; TEMP 37.5; O2SAT 99
--- NOTE | 2019-07-17 19:01 | ED.RN ---
notified Adolfo, of planned time of transfer
--- NOTE | 2019-07-17 20:16 | ED.RN ---
called [facility] to inform of time of pt's transfer
--- NOTE | 2019-07-17 20:17 | ED.RN ---
called pt's to inform of time pt left ED
== END 2019-07-17 19:57 | disposition home or self-care (01) ==
PROVIDERS: Emergency Provider Emergency Medicine; PCP Family Medicine
DX: J86.9 Pyothorax without fistula (principal); J45.909 Unspecified asthma, uncomplicated; I10 Essential (primary) hypertension
CPT/HCPCS: 71045; 71250; 71260; 80048; 81001; 83605; 84484; 85025; 87040; 93005; 96361; 96365; 96367; 96375; 99285; J7030; P9612; A4216; J2405